=== PATIENT | female | born 1940 | race Caucasian/White ===

== ENCOUNTER → 2017-11-23 09:18 | Outpatient (CLI) | payer MEDICARE, OTHER, SELFPAY ==
--- NOTE | 2017-11-22 19:43 | CYSPIN_PTH ---
PATIENT: KENNY VELASCO LOC: [facility] U#:[id number] AGE/SX: 84/F ROOM: RE11/23/[address]: Dr. Omar Mcclure MD : 1940 BED: DIS: SPEC #: [id number] RECD: 11/23/17 10:39 STATUS: JUAN REQ #: [id number] SANDIP: 11/22/17 19:[address]: Omar Mcclure DEPT: CYTOLOGY RECD BY: Kimani Mosley ENTERED: 11/23/17 10:40 SP TYPE: CYSPIN FL OTHR DR: Dr. Julian Villa MD Tissues: Urine Procedures: Pap Stain (control) Special Stain Group II Cytospin Fluid HEADER OPERATION: Not noted PRE-OP DIAGNOSIS: Malignant neoplasm of bladder C67.9 TISSUE SUBMITTED: Urine for cytology DIAGNOSIS CYTOLOGY Urine for cytology (cytospin): Rare clusters of mildly atypical cells noted. Acute inflammation. SJ:cata 11/26/17 COMMENT Clinical correlation and appropriate follow up are necessary. Please make reference to previous specimen ([id number]), urine for cytology with diagnosis of ?rare atypical urothelial cells noted? 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 and ([id number]) bladder tumor, TUR with diagnosis of ?papillary transitional cell carcinoma.? CYTOLOGY STUDY Slides are reviewed. CYTOLOGY GROSS Received is 45 ml of clear gold fluid labeled with the patient's name and and designated per the requisition as urine. Submitted for cytology preparation. / 11/23/17 TC:5 CPT: 36519
[2017-11-23 09:24] LABS: Cytology, Body Fluid / CSF SEE PATHOLOGY REPORT
== END ==
PROVIDERS: Family Provider Family Medicine; PCP Family Medicine; Visit Provider Urology
DX: C67.9 Malignant neoplasm of bladder, unspecified (principal)
CPT/HCPCS: 88108; 88313

== ENCOUNTER → 2018-03-18 09:55 | Outpatient (CLI) | payer MEDICARE, OTHER, SELFPAY | PROVIDERS: Family Provider Family Medicine; PCP Family Medicine; Referring Provider Urology; Visit Provider Urology | DX: N39.0 Urinary tract infection, site not specified (principal) | CPT/HCPCS: 87077; 87086; 87088; 87186 ==

== ENCOUNTER → 2018-05-01 12:11 | Outpatient (CLI) | payer MEDICARE, OTHER, SELFPAY | PROVIDERS: Family Provider Family Medicine; PCP Family Medicine; Referring Provider Nurse Practitioner Adult Health; Visit Provider Nurse Practitioner Adult Health | DX: R31.9 Hematuria, unspecified (principal); R30.0 Dysuria | CPT/HCPCS: 87077; 87086; 87088; 87186 ==

== ENCOUNTER → 2018-11-25 16:28 | Outpatient (CLI) | payer MEDICARE, OTHER, SELFPAY | PROVIDERS: Family Provider Family Medicine; PCP Family Medicine; Referring Provider Urology; Visit Provider Urology | DX: R30.0 Dysuria (principal) | CPT/HCPCS: 87077; 87086; 87088; 87186 ==

== ENCOUNTER → 2018-12-05 06:49 | Outpatient (CLI) | payer MEDICARE, OTHER, SELFPAY ==
--- NOTE | 2018-12-05 06:51 | CT_ITS ---
STUDY: CT ABDOMEN AND PELVIS WITHOUT CONTRAST REASON FOR EXAM: Female, 78 years old. Chronic inflammation. UTI's. RADIATION DOSAGE (If Supplied By Facility): CTDIvol = ( 6.45 ) mGy, DLP = ( 285.08 ) mGycm TECHNIQUE: Transaxial images were obtained from the dome of the diaphragm to the symphysis pubis without oral contrast, and without intravenous contrast. Sagittal and coronal images were reconstructed. Individualized dose optimization techniques were used for this CT. COMPARISON: 06/20/10 FINDINGS: There are fibrotic and atelectatic changes in both lung bases. There is a lobulated 1.3 cm nodule in the posterior right lung base. Suggest reevaluation with CT of the chest. Normal shape and size of the liver. Stable liver cysts, largest measures 2.1 cm.. Normal gallbladder and extrahepatic biliary system. Normal spleen. Normal pancreas. Normal bilateral adrenal glands. No acute abnormality of the kidneys. Punctate nonobstructing right upper pole stone. 3 cm cyst of the upper left kidney, larger than on previous study. No hydronephrosis on either side. Evaluation of the GI tract is limited by absence of oral contrast. Cannot exclude stomach wall thickening. No dilated loops of bowel or evidence for obstruction. Cannot exclude segmental thickening of the abreu of the small or large bowel. Cannot exclude enteritis or colitis. Moderate diffuse fecal retention. Diverticulosis without definite diverticulitis. Appendix within normal limits. There is diffuse atherosclerotic calcification of the abdominal aorta with elongation and tortuosity, but without a demonstrated aneurysm. Normal inferior vena cava. Normal retroperitoneum. Normal urinary bladder. Stable appearance of the uterus with a 2.3 cm calcified fibroid. Normal abdominal wall. There are diffuse degenerative changes of the visualized lumbar spine. CT/Abdomen/Pelvis without Cont IMPRESSION: 1.3 cm nodule in the right lung base, CT of the chest recommended. Tiny nonobstructing right renal stone. No acute abnormalities in the abdomen or pelvis. Electronically Signed: Yehuda Arora MD at 17:19 EDT , Service support ,
== END ==
PROVIDERS: Family Provider Family Medicine; PCP Family Medicine; Referring Provider Urology; Visit Provider Urology
DX: N30.20 Other chronic cystitis without hematuria (principal); C67.9 Malignant neoplasm of bladder, unspecified
CPT/HCPCS: 74176

== ENCOUNTER → 2018-12-13 06:50 | Outpatient (CLI) | payer MEDICARE, OTHER, SELFPAY ==
--- NOTE | 2018-12-13 06:52 | CT_ITS ---
STUDY: CT CHEST WITHOUT CONTRAST REASON FOR EXAM: Female, 78 years old. Pulmonary nodule. RADIATION DOSAGE (If Supplied By Facility): CTDIvol = ( 8.02 ) mGy, DLP = ( 278.39 ) mGycm TECHNIQUE: Transaxial imaging was performed without the administration of intravenous contrast material. Multiplanar coronal and sagittal images were reformatted. Individualized dose optimization techniques were used for this CT. COMPARISON: CT abdomen and pelvis December 05, 2018 FINDINGS: There is bronchiectasis in the lower chest with patchy interstitial and groundglass increased opacities. There are 1.5 x 1.2 cm and 1.3 x 1.0 cm mass is in the right lower lobe, series 4 images 55/120 and 68/120. There is a right lower lung granuloma. There is no demonstrated pleural abnormality. There are aortic and mitral valvular calcifications. Normal mediastinum. Normal hilar regions. Normal unenhanced pulmonary arteries. There is atherosclerotic calcification of the aortic arch with tortuosity and elongation of the aortic arch and descending thoracic aorta. There are multi-level degenerative changes of the thoracic spine. Hypodensities with small cysts in the liver and left kidney. CT/Chest without Contrast IMPRESSION: Right lung masses suggesting primary or metastatic malignancy. Biopsy and/or PET scan recommended for further evaluation. Electronically Signed: Ramon Murphy MD at 8:45 EDT , Service support ,
== END ==
PROVIDERS: Family Provider Family Medicine; PCP Family Medicine; Referring Provider Urology; Visit Provider Urology
DX: R91.1 Solitary pulmonary nodule (principal)
CPT/HCPCS: 71250

== ENCOUNTER → 2018-12-17 14:57 | Outpatient (CLI) | payer MEDICARE, OTHER, SELFPAY ==
[2018-12-17 16:12] LABS: Erythrocyte Sedimentation Rate 5 mm/hr (0-30)
[2018-12-17 16:14] LABS: Rheumatoid Factor < 10.0 IU/mL (<15)
[2018-12-19 16:49] LABS: ANTINUCLEAR ANTIBODIES DIRECT Negative (Negative)
[2018-12-20 16:07] LABS: QNTFERON TB Mitogen Value > 10.00 IU/mL (.); QNTFERON TB Nil Value 0.03 IU/mL (.); QNTFERON TB1+ Ag Value 0.04 IU/mL (.); QNTFERON TB2+ Ag Value 0.02 IU/mL (.)
[2018-12-20 17:53] LABS: Perinuclear Ab (P-ANCA) <1:20 titer (Neg:<1:20); QNTIFERON TB Positive Criteria Negative (Negative)
== END ==
PROVIDERS: Family Provider Family Medicine; PCP Family Medicine; Referring Provider Internal Medicine Pulmonary Disease; Visit Provider Internal Medicine Pulmonary Disease
DX: R91.1 Solitary pulmonary nodule (principal)
CPT/HCPCS: 36415; 85652; 86038; 86256; 86431; 86480

== ENCOUNTER → 2018-12-19 15:00 | Outpatient (CLI) | payer MEDICARE, OTHER, SELFPAY ==
[2018-12-26 15:50] LABS: URINE HISTOPLASMA ANTIGEN <0.5
== END ==
PROVIDERS: Family Provider Family Medicine; PCP Family Medicine
DX: R91.1 Solitary pulmonary nodule (principal)
CPT/HCPCS: 87385

== ENCOUNTER → 2018-12-23 09:00 | Outpatient (CLI) | payer MEDICARE, OTHER, SELFPAY ==
--- NOTE | 2018-12-23 09:30 | PET_ITS ---
EXAMINATION: FDG PET CT INDICATIONS: A 78-year-old female with reported history of carcinoma of the urinary bladder presenting for restaging examination and evaluation of pulmonary nodularity. COMPARISON EXAMINATION: CT of the chest report dated 12/13/18. INDEX LESION SIZE SUV INTERPRETATION Right mid posterior lung field, right lower lobe 15.8 mm (frame 186) 1.3 Quantitative criteria for viable neoplasm are not fulfilled, sequential radiologic investigation recommended TECHNIQUE: Following the intravenous administration of 16.0 mCi of F-18 deoxyglucose via the left antecubital fossa, multiplanar image acquisitions of the neck, chest, abdomen and pelvis to level of mid thigh, obtained at one hour post radiopharmaceutical administration contemporaneously interpreted with the current CT of the neck, chest, abdomen and pelvis to level of mid thigh, dated 12/23/[address] of the chest report dated 12/13/18 reveal: SERUM GLUCOSE LEVEL: 143 mg/dl. HEIGHT: 61 inches. WEIGHT: 134lbs. FINDINGS: 1. Mild increased glucose metabolism is identified in the right mid posterior hemithorax pulmonary parenchyma, right lower lobe generating a calculated maximum standard uptake value of 1.3. The maximal axial diameter of the corresponding parenchymal density on review of CT of the chest dated 12/23/18 is 15.8 mm (AP). 2. Normal physiologic distribution of the radiopharmaceutical is apparent in the hepatic (3.7) and splenic parenchyma, both renal units, bladder and visualized intestinal tract. There is uniform distribution of the radiopharmaceutical concentration defined in the visualized cerebellar hemispheres and cerebral cortical structures.? Diffuse intestinal tract activity is noted throughout all four quadrants of the abdominal-pelvic retroperitoneum, mesentery consistent with normal physiologic distribution of the radiopharmaceutical. Prominent radiopharmaceutical concentration is defined in the ascending, descending thoracic, as well as abdominal aorta commensurate with activated leukocytes associated with atherosclerotic plaque formation. (William et al, Clinical Nuclear Medicine 29:93, 2004). Relatively symmetric cervical paravertebral muscle tension artifact is demonstrated. Pertinent CT findings are as follows. CHEST: Atherosclerotic calcification is defined in the thoracic aorta without evidence of dilatation, aneurysm formation. Bilateral axillary soft tissue densities with fatty hilus formation are non-glucose avid. An additional noncalcified parenchymal density noted in the right lower posterior lung field, right lower lobe is ametabolic. Linear densities and interstitial changes noted in the bilateral lower lung whalen demonstrate no evidence of increased glucose metabolism. ABDOMEN AND PELVIS: Atherosclerotic calcification is defined in the abdominal aorta without evidence of dilatation, aneurysm formation. Pelvic arterial calcification is observed. There is borderline fatty metamorphosis defined within the hepatic parenchyma. Colonic diverticulosis is demonstrated without evidence of diverticulitis. Right-left inguinal soft tissue densities with fatty hilus formation reveal no evidence of increased glucose metabolism. Dense calcification is defined in the lower pelvis, which appears contiguous to the lower portion of the uterus without evidence of facilitated FDG uptake. SKELETAL: Degenerative changes defined in the cervical, thoracic and lumbar spine demonstrate no evidence for glucose hypermetabolism. PET/PET/CT Tumor Base -Thigh Init IMPRESSION: 1. NEGATIVE EXAMINATION. There is no definitive quantitative scintigraphic evidence of recurrent-metastatic viable neoplasm. 2. Subtle increased FDG concentration noted in the right mid posterior lung field, right lower lobe does not fulfill quantitative criteria for viable neoplasm. (Roldan et al, Annals of Internal Medicine, 138:724, 2003). 3. Metabolic and/or anatomic stability may be ensured in the right hemithorax pulmonary parenchymal abnormality with repeat FDG PET study and/or CT of the thorax in three months. (Xiu, Journal of Nuclear Medicine 45:88, P2004. Arnaldo, Seminars in Thoracic and Cardiovascular Surgery 14:292, 2002). Electronic Signature Kimani Newberry D.O. Electronically Signed: Kimani Newberry DO at 23:09 EDT Tel , Service support ,
== END ==
PROVIDERS: Family Provider Family Medicine; PCP Family Medicine; Referring Provider Internal Medicine Pulmonary Disease; Visit Provider Internal Medicine Pulmonary Disease
DX: R91.1 Solitary pulmonary nodule (principal)
CPT/HCPCS: 78815; A9552

== ENCOUNTER → 2019-03-25 09:15 | Outpatient (CLI) | payer MEDICARE, OTHER, SELFPAY ==
--- NOTE | 2019-03-25 09:21 | CT_ITS ---
STUDY: CT CHEST WITHOUT CONTRAST REASON FOR EXAM: Female, 78 years old. Lung nodule follow up, no new problems or pain. Hx bladder cancer (surgery only) hypertension and diabetes. RADIATION DOSAGE (If Supplied By Facility): CTDIvol = ( 7.93 ) mGy, DLP = ( 263.69 ) mGycm TECHNIQUE: Transaxial imaging was performed without the administration of intravenous contrast material. Multiplanar coronal and sagittal images were reformatted. Individualized dose optimization techniques were used for this CT. COMPARISON: Comparison is made with prior examination dated December 13, 2018. FINDINGS: Stable small benign-appearing bilateral axillary lymph nodes. Mild degree of emphysematous changes. There is a 1.3 cm x 0.9 cm slightly lobulated nodule in the superior segment of the right lower lobe as seen on axial image #54 and 53. This has decreased slightly in size as compared to prior study. There is also evidence of a 1.3 cm x 0.9 cm well-defined nodule in the right lower lobe as seen on axial image #67. There is evidence of increased markings at the lower lobes slightly more prominent on the right side suggestive of a scarring. There has been essentially no change. There is no demonstrated pleural abnormality. There are calcifications of the coronary arteries. There are multiple small lymph nodes within the mediastinum, which are normal in size and morphology most compatible with reactive lymph hyperplasia. Normal hilar regions. Normal unenhanced pulmonary arteries. There is atherosclerotic calcification of the aortic arch with tortuosity and elongation of the aortic arch and descending thoracic aorta. There are multi-level degenerative changes of the thoracic spine. There is no demonstrated abnormality of the visualized upper abdomen. CT/Chest without Contrast IMPRESSION: Stable nodules in the right lower lobe. Stable increased markings at the lung bases suggestive of scarring. Electronically Signed: Sidney Cartwright, at 14:16 EST , Service support ,
== END ==
PROVIDERS: Family Provider Family Medicine; PCP Family Medicine; Referring Provider Internal Medicine Pulmonary Disease; Visit Provider Internal Medicine Pulmonary Disease
DX: R91.1 Solitary pulmonary nodule (principal)
CPT/HCPCS: 71250

== ENCOUNTER → 2019-09-23 08:21 | Outpatient (CLI) | payer MEDICARE, OTHER, SELFPAY ==
--- NOTE | 2019-09-23 08:23 | CT_ITS ---
STUDY: CT CHEST WITHOUT CONTRAST REASON FOR EXAM: Female, 78 years old. LUNG NODULE FOLLOW UP RADIATION DOSAGE (If Supplied By Facility): CTDIvol = ( 7.88 ) mGy, DLP = ( 259.98 ) mGycm TECHNIQUE: Transaxial imaging was performed without the administration of intravenous contrast material. Individualized dose optimization techniques were used for this CT. COMPARISON: 03/25/2019 FINDINGS: Lung windows show stable nonspecific pleural thickening in the apices. Stable appearance of a known 1.3 x 0.9 cm lobulated nodule in the right lower lobe on axial image 54. Stable appearance of a known 1.3 x 0.9 cm nodule in the right lower lobe on axial image 68. No new suspicious noncalcified mass or nodule. No organized infiltrate or groundglass opacifications. Stable interstitial scarring and atelectasis noted in the lung bases. Soft tissue windows show a normal-appearing thyroid gland. There are scattered subcentimeter axillary mediastinal lymph nodes. No pleural or pericardial effusions. Normal hilar regions. Normal unenhanced pulmonary arteries. Peripheral calcifications in the thoracic aorta without aneurysm. There are multi-level degenerative changes of the thoracic spine. Limited cuts through the upper abdomen show stable 3 cm left renal cyst CT/Chest without Contrast IMPRESSION: Stable well-defined lobulated nodules in the right lower lobe on axial images 54 and 68. No organized infiltrate or suspicious ground glass opacifications Stable subcentimeter axillary mediastinal adenopathy Electronically Signed: Matti Garcia MD at 11:15 EDT , Service support ,
== END ==
PROVIDERS: PCP Family Medicine; Referring Provider Internal Medicine Pulmonary Disease; Visit Provider Internal Medicine Pulmonary Disease
DX: R91.1 Solitary pulmonary nodule (principal)
CPT/HCPCS: 71250

== ENCOUNTER → 2020-06-04 15:00 | Outpatient (CLI) | payer MEDICARE, OTHER, SELFPAY ==
--- NOTE | 2020-06-04 15:03 | VDLE_ITS ---
Reason For Study: Pain, Swelling RLE RIGHT LEFT GSV is normal. CFV is compressible, spontaneous, phasic, CFV is compressible, spontaneous, phasic, competent, and demonstrates normal competent and demonstrates normal augmentation. augmentation. FV is compressible, spontaneous, phasic, competent and demonstrates normal augmentation. POP V is compressible, spontaneous, phasic, competent and demonstrates normal augmentation. T/P Trunk is compressible. PTV is compressible. RT PerV is compressible. Acute deep vein thrombosis is noted in the right soleus vein. Procedure This is a venous duplex using B-mode, color flow and spectral Doppler. Exam performed in department. VL/Venous Duplex US, Unilateral Interpretation Summary Acute deep vein thrombosis is noted in the right soleus vein. The remainder of the right lower extremity deep venous system is patent and compressible. Valvular competence ap pears intact within the proximal deep venous system on the right . The right great saphenous vein a ppears patent and compressible segmentally. Ordering Physician: Tricia Hunter Referring Physician: Julian Villa Performed By: Whitley Rich RVT
== END ==
PROVIDERS: PCP Family Medicine; Referring Provider Clinical Nurse Specialist; Visit Provider Clinical Nurse Specialist
DX: M79.89 Other specified soft tissue disorders (principal); M79.604 Pain in right leg
CPT/HCPCS: 93971

== ENCOUNTER → 2020-06-17 10:48 | Outpatient (CLI) | payer MEDICARE, OTHER, SELFPAY ==
--- NOTE | 2020-06-17 | CYSPIN_PTH ---
PATIENT: KENNY VELASCO LOC: [facility] U#:[id number] AGE/SX: 84/F ROOM: RE06/17/[address]: Dr. Omar Mcclure MD : 1940 BED: DIS: SPEC #: [id number] RECD: 06/17/20 11:24 STATUS: JUAN REYumiko #: [id number] SANDIP: 06/17/20 00:[address]: Omar Mcclure DEPT: CYTOLOGY RECD BY: Jason Theodore ENTERED: 06/17/20 11:25 SP TYPE: CYSPIN FL OTHR DR: Dr. Julian Villa MD Tissues: Urine Procedures: Pap Stain (control) Special Stain Group II Cytospin Fluid HEADER OPERATION: Not noted PRE-OP DIAGNOSIS: Malignant neoplasm of bladder TISSUE SUBMITTED: Urine for cytology DIAGNOSIS CYTOLOGY Urine for cytology (cytospin): Negative for malignant cells. Acute inflammation. See comment. AM:cata 06/18/2020 COMMENT The specimen primarily consists of squamous epithelial cells. Clinical correlation is suggested. CYTOLOGY STUDY Slides are reviewed. CYTOLOGY GROSS Received is 10 ml of yellow cloudy fluid labeled with the patient's name and and designated per the requisition as urine. Submitted for cytology preparation. / cata 06/17/2020 TC:5 CPT: 64581
[2020-06-17 11:06] LABS: Cytology, Body Fluid / CSF SEE PATHOLOGY REPORT
== END ==
PROVIDERS: PCP Family Medicine; Referring Provider Urology; Visit Provider Urology
DX: Z85.51 Personal history of malignant neoplasm of bladder (principal)
CPT/HCPCS: 88108; 88313

== ENCOUNTER → 2020-06-23 07:58 | Outpatient (CLI) | payer MEDICARE, OTHER, SELFPAY ==
--- NOTE | 2020-06-23 08:00 | CT_ITS ---
STUDY: CT ABDOMEN AND PELVIS WITH AND WITHOUT CONTRAST REASON FOR EXAM: Female, 79 years old. Gross hematuria. History of bladder cancer. RADIATION DOSAGE (If Supplied By Facility): CTDIvol = ( 17.85 ) mGy, DLP = ( 2028.58 ) mGycm TECHNIQUE: Transaxial images were obtained from the dome of the diaphragm to the symphysis pubis without oral contrast. IV 100mL Isovue-370 was administered. Sagittal and coronal images were reconstructed. Individualized dose optimization techniques were used for this CT. COMPARISON: Comparison is made with prior examination 12/05/2018. FINDINGS: Stable increased linear markings at the lung bases suggestive of scarring. The previously documented nodules at the right lung base are not seen at this time since the field of view did not include the lower lungs. The visualized portions of the heart are within normal limits. There is decreased attenuation of the liver consistent with steatosis. Stable small hepatic cysts. Normal gallbladder and extrahepatic biliary system. Normal spleen. Normal pancreas. Normal bilateral adrenal glands. Normal right kidney. Stable 3 cm cyst in the upper pole of the left kidney. Normal visualized stomach. Normal small intestine. Normal colon. The appendix is visualized and appears normal. There is scattered atherosclerotic calcification of the abdominal aorta, without a demonstrated aneurysm. Normal inferior vena cava. Normal retroperitoneum. Normal urinary bladder. Calcified fibroid uterus. There is a small umbilical hernia containing fat. There are diffuse degenerative changes of the visualized lumbar spine. CT/CT Abd/Pelvis W/WO Contrast IMPRESSION: Stable examination. Electronically Signed: Sidney Cartwright MD at 10:30 EDT , Service support ,
== END ==
PROVIDERS: PCP Family Medicine; Referring Provider Urology; Visit Provider Urology
DX: R31.0 Gross hematuria (principal)
CPT/HCPCS: 74178; Q9967

== ENCOUNTER → 2020-12-13 13:52 | Outpatient (CLI) | payer MEDICARE, OTHER, SELFPAY ==
--- NOTE | 2020-12-13 14:40 | CT_ITS ---
STUDY: CT Chest W/O Contrast Injection 12/13/2020 3:19 PM REASON FOR EXAM: Female, 80 years old. PULMONARY NODULE Individualized dose optimization techniques were used for this CT. TECHNIQUE: Transaxial imaging was performed withoutIV contrast material. COMPARISON: 09.23.19. FINDINGS: There are degenerative changes of the shoulders. There is no pneumothorax. There is no demonstrated pleural abnormality. 2.6 mm right upper lobe nodule. This is stable. 11 mm right lower lobe nodule. Series 2 image 68. 13 mm nodule in the superior segment of the right lower lobe. Series 2 image 54. 3.8 mm left upper lobe nodule. Series 2 image 47. 2.1 mm left upper lobe nodule. Series 2 image 26. Normal heart and pericardium. Normal mediastinum. Normal hilar regions. Normal pulmonary arteries. There is atherosclerotic calcification of the aortic arch with tortuosity and elongation of the aortic arch and descending thoracic aorta. There are multi-level degenerative changes of the thoracic spine. Stable hepatic hypodensities. Stable cyst of the left kidney. No follow-up required. CT/Chest without Contrast IMPRESSION: Multiple stable bilateral pulmonary nodules. Lung RADS 2 Electronically Signed: Ricky Johnson MD at 15:24 EDT , Service support ,
== END ==
PROVIDERS: PCP Family Medicine; Referring Provider Internal Medicine Pulmonary Disease; Visit Provider Internal Medicine Pulmonary Disease
DX: R91.1 Solitary pulmonary nodule (principal)
CPT/HCPCS: 71250

== ENCOUNTER 2021-04-05 16:59 | Outpatient (CLI) | payer MEDICARE, OTHER, SELFPAY | END 2021-04-05 23:59 | disposition short-term general hospital (02) | LOC: LABSPEC 17:00 | PROVIDERS: PCP Family Medicine; Visit Provider Urology | DX: R31.0 Gross hematuria (principal) | CPT/HCPCS: 87077; 87086; 87088; 87186 ==

== ENCOUNTER 2021-04-18 10:42 | Outpatient (CLI) | payer MEDICARE, OTHER, SELFPAY | END 2021-04-18 23:59 | disposition home or self-care (01) | LOC: LAB 10:43 | PROVIDERS: PCP Family Medicine; Visit Provider Urology | DX: N30.00 Acute cystitis without hematuria (principal) | CPT/HCPCS: 87077; 87086; 87088; 87186 ==

== ENCOUNTER → 2021-07-01 | Outpatient (CLI) | payer MEDICARE, OTHER, SELFPAY ==
--- NOTE | 2021-07-01 14:52 | CT_ITS ---
STUDY: CT ABDOMEN AND PELVIS WITH AND WITHOUT CONTRAST REASON FOR EXAM: Female, 80 years old. HX BLADDER CA RADIATION DOSAGE (If Supplied By Facility): CTDIvol = ( 12.77 ) mGy, DLP = ( 1437.50 ) mGycm TECHNIQUE: Transaxial images were obtained from the dome of the diaphragm to the symphysis pubis without oral contrast. IV 100mL Isovue-300 was administered. Sagittal and coronal images were reconstructed. Individualized dose optimization techniques were used for this CT. COMPARISON: None. FINDINGS: The visualized lung bases are unremarkable. The visualized portions of the heart are within normal limits. There are scattered focal areas of decreased density in the liver. Close to the portal vein there is an irregular marginated low-density lesion.. Normal gallbladder and extrahepatic biliary system. Normal spleen. Normal pancreas. Normal bilateral adrenal glands. Normal right kidney. There is a cystic lesion at the upper pole of the left kidney measuring 2.19 cm. left kidney. Normal visualized stomach. Normal small intestine. There are scattered diverticula in the colon. The appendix is visualized and appears normal. Normal abdominal aorta. Normal inferior vena cava. Normal retroperitoneum. Normal urinary bladder. Normal abdominal wall. Normal osseous structures. CT/CT Abd/Pelvis W/WO Contrast IMPRESSION: There is a lesion in the liver which may be a hepatic cyst although a solid mass is within the differential diagnosis. Electronically Signed: Chris Nath MD at 0:22 EDT ,
[2021-07-01 15:30] LABS: CREATININE FINGERSTICK 0.8 mg/dL (0.55-1.02); EGFR FINGERSTICK > 60.0000 mL/min (>60)
== END | disposition home or self-care (01) ==
LOC: CT 14:51
PROVIDERS: PCP Family Medicine; Referring Provider Urology; Visit Provider Urology
DX: Z85.51 Personal history of malignant neoplasm of bladder (principal)
CPT/HCPCS: 74178; Q9967

== ENCOUNTER 2021-09-08 16:55 | Outpatient (CLI) | payer MEDICARE, OTHER, SELFPAY | END 2021-09-08 23:59 | disposition home or self-care (01) | LOC: LABSPEC 16:57 | PROVIDERS: PCP Family Medicine; Referring Provider Urology; Visit Provider Urology | DX: N30.00 Acute cystitis without hematuria (principal) | CPT/HCPCS: 87077; 87086; 87088; 87186 ==

== ENCOUNTER → 2021-09-19 | Outpatient (CLI) | payer MEDICARE, OTHER, SELFPAY | END | disposition home or self-care (01) | PROVIDERS: PCP Family Medicine; Referring Provider Urology; Visit Provider Urology | DX: N30.00 Acute cystitis without hematuria (principal) | CPT/HCPCS: 87077; 87086; 87088; 87186 ==

== ENCOUNTER → 2021-09-23 | Outpatient (CLI) | payer MEDICARE, OTHER, SELFPAY ==
[2021-09-23] MEDS: 0.9% NaCl Peripheral Flush Adult/Peds IV (08:07)
[2021-09-23] MEDS: 0.9% NaCl IVPB Med Flush (250 mL) 15 ML IV (08:08)
[2021-09-23 08:19] VITALS: BP 125/74; PULSE 72; RESP 16; TEMP 36.6; O2SAT 98
== END | disposition home or self-care (01) ==
LOC: MEDOUTP 07:52
PROVIDERS: PCP Family Medicine; Referring Provider Urology; Visit Provider Urology
DX: N30.00 Acute cystitis without hematuria (principal); B96.20 Unspecified Escherichia coli [E. coli] as the cause of diseases classified elsewhere
CPT/HCPCS: 96365; J7050; A4216

== ENCOUNTER 2021-09-24 08:26 | Outpatient (CLI) | payer MEDICARE, OTHER, SELFPAY ==
[2021-09-24] MEDS: 0.9% Saline Lock 10 ML Syringe IV (08:40)
[2021-09-24 08:51] VITALS: BP 139/70; PULSE 67; RESP 100; TEMP 36.8; O2SAT 98
== END 2021-09-24 09:44 | disposition home or self-care (01) ==
LOC: MEDOUTP 08:27 → MS3 08:30
PROVIDERS: PCP Family Medicine; Referring Provider Urology; Visit Provider Urology
DX: N30.00 Acute cystitis without hematuria (principal); B96.20 Unspecified Escherichia coli [E. coli] as the cause of diseases classified elsewhere
CPT/HCPCS: 96365; J7050; A4216

== ENCOUNTER 2021-09-25 08:25 | Outpatient (CLI) | payer MEDICARE, OTHER, SELFPAY ==
[2021-09-25 08:58] VITALS: BP 134/68; PULSE 70; RESP 16; TEMP 36.8; O2SAT 99
[2021-09-25] MEDS: 0.9% Saline Lock 10 ML Syringe IV (09:08)
== END 2021-09-25 09:50 | disposition home or self-care (01) ==
LOC: MEDOUTP 08:28 → PCU 08:30
PROVIDERS: PCP Family Medicine; Visit Provider Urology
DX: N30.00 Acute cystitis without hematuria (principal); B96.20 Unspecified Escherichia coli [E. coli] as the cause of diseases classified elsewhere
CPT/HCPCS: 96365; J7050; A4216

== ENCOUNTER → 2021-09-26 | Outpatient (CLI) | payer MEDICARE, OTHER, SELFPAY ==
[2021-09-26 08:28] VITALS: BP 145/79; PULSE 77; RESP 16; TEMP 36.2; O2SAT 97; BMI 23.2
[2021-09-26] MEDS: 0.9% NaCl Peripheral Flush Adult/Peds IV (08:32)
[2021-09-26] MEDS: 0.9% NaCl IVPB Med Flush (250 mL) 15 ML IV (08:35)
[2021-09-26 09:17] VITALS: BP 127/68; PULSE 68; RESP 14; TEMP 36.8; O2SAT 97
== END | disposition home or self-care (01) ==
LOC: MEDOUTP 08:21
PROVIDERS: PCP Family Medicine; Referring Provider Urology; Visit Provider Urology
DX: N30.00 Acute cystitis without hematuria (principal); B96.20 Unspecified Escherichia coli [E. coli] as the cause of diseases classified elsewhere
CPT/HCPCS: 96365; J7050; A4216

== ENCOUNTER → 2021-09-27 | Outpatient (CLI) | payer MEDICARE, OTHER, SELFPAY ==
[2021-09-27] MEDS: 0.9% NaCl Peripheral Flush Adult/Peds IV (08:31)
[2021-09-27 08:36] VITALS: BP 145/75; PULSE 78; RESP 14; TEMP 36.4; O2SAT 98; BMI 23.8
[2021-09-27] MEDS: 0.9% NaCl IVPB Med Flush (250 mL) 15 ML IV (08:53)
[2021-09-27 09:34] VITALS: BP 131/68; PULSE 70; RESP 14; TEMP 36.7; O2SAT 95
== END | disposition home or self-care (01) ==
LOC: MEDOUTP 08:22
PROVIDERS: PCP Family Medicine; Referring Provider Urology; Visit Provider Urology
DX: N30.00 Acute cystitis without hematuria (principal); B96.20 Unspecified Escherichia coli [E. coli] as the cause of diseases classified elsewhere
CPT/HCPCS: 96365; J7050; A4216

== ENCOUNTER → 2021-09-28 | Outpatient (CLI) | payer MEDICARE, OTHER, SELFPAY ==
[2021-09-28] MEDS: 0.9% NaCl Peripheral Flush Adult/Peds IV (08:07)
[2021-09-28] MEDS: 0.9% NaCl IVPB Med Flush (250 mL) 15 ML IV (08:07)
[2021-09-28 08:12] VITALS: BP 135/78; PULSE 72; RESP 16; TEMP 36.4; O2SAT 98
== END | disposition home or self-care (01) ==
LOC: MEDOUTP 07:53
PROVIDERS: PCP Family Medicine; Referring Provider Urology; Visit Provider Urology
DX: N30.00 Acute cystitis without hematuria (principal); B96.20 Unspecified Escherichia coli [E. coli] as the cause of diseases classified elsewhere
CPT/HCPCS: 96365; J7050; A4216

== ENCOUNTER → 2021-09-29 | Outpatient (CLI) | payer MEDICARE, OTHER, SELFPAY ==
[2021-09-29] MEDS: 0.9% NaCl Peripheral Flush Adult/Peds IV (08:31)
[2021-09-29] MEDS: 0.9% NaCl IVPB Med Flush (250 mL) 15 ML IV (08:31)
[2021-09-29 08:37] VITALS: BP 133/71; PULSE 72; RESP 16; TEMP 36.8; O2SAT 95
[2021-09-29 09:25] VITALS: BP 128/70; PULSE 73; RESP 12; TEMP 36.8; O2SAT 95
== END | disposition home or self-care (01) ==
LOC: MEDOUTP 08:24
PROVIDERS: PCP Family Medicine; Referring Provider Urology; Visit Provider Urology
DX: N30.00 Acute cystitis without hematuria (principal); B96.20 Unspecified Escherichia coli [E. coli] as the cause of diseases classified elsewhere
CPT/HCPCS: 96365; J7050; A4216

== ENCOUNTER → 2021-12-14 | Outpatient (CLI) | payer MEDICARE, OTHER, SELFPAY ==
--- NOTE | 2021-12-14 12:50 | CT_ITS ---
INDICATION: NODULE EXAMINATION: CT CHEST WITHOUT CONTRAST - CT Chest W/O Contrast Injection TECHNIQUE: Helically acquired images were obtained of the chest. A radiation dose optimization technique was used for this scan. IV Contrast dosage and agent: None. COMPARISON: 12/13/2020 FINDINGS: LUNGS, PLEURA AND LARGE AIRWAYS: Series 4 image 18 medial aspect apical segment right upper lobe 0.28 cm micronodules stable. Series 4 image 29 lateral aspect anterior segment right upper lobe micronodule 0.27 cm stable. Series 4 image 61 right middle lobe micronodule 0.24 cm stable. Mild bibasilar fibrosis. Micronodule right lower lobe series 4 image 76 0.31 cm. The aforementioned nodules are stable. THYROID: No thyroid lesions. HEART AND PERICARDIUM: Heart size is normal. No pericardial effusion. CORONARY ARTERIES: Coronary artery calcification VESSELS: Thoracic aorta is not dilated. MEDIASTINUM AND ERNESTO: No mediastinal or hilar adenopathy. Esophagus is unremarkable. No hiatal hernia. UPPER ABDOMEN: Simple cyst lateral midpole left kidney 2.9 cm. BONES: No suspicious lytic or blastic abnormality. CT/Chest without Contrast IMPRESSION: Stable micronodules detailed above. Simple cyst lateral midpole left kidney. Lung Rads Category 2. Electronically Signed: Konrad Ibarra MD, BLAIR at 16:01 EDT ,
== END | disposition home or self-care (01) ==
LOC: CT 12:49
PROVIDERS: PCP Family Medicine; Referring Provider Internal Medicine Pulmonary Disease; Visit Provider Internal Medicine Pulmonary Disease
DX: R91.1 Solitary pulmonary nodule (principal)
CPT/HCPCS: 71250

== ENCOUNTER 2021-12-16 01:17 | Observation (INO) | payer MEDICARE, OTHER, SELFPAY ==
[2021-12-16] VITALS (11 sets, daily range): BP systolic 123–177; BP diastolic 63–80; PULSE 70–78; RESP 16–19; TEMP 36.4–36.8; O2SAT 95–100; BMI 25.5; BMI 25.0
--- NOTE | 2021-12-16 01:28 | EKG12_ITS ---
Test Reason : CP Blood Pressure : / mmHG Vent. Rate : 073 BPM Atrial Rate : 073 BPM P-R Int : 158 ms QRS Dur : 076 ms QT Int : 386 ms P-R-T Axes : 064 016 043 degrees QTc Int : 425 ms Normal sinus rhythm Normal ECG Confirmed by RAJAT LARA, JEN ([id number]), clinical editor KARRIE RIOS ([id number]) on 12/19/2021 10:11:25 AM Referred By: EDITH Confirmed By:ASCENCION EARL MD
--- NOTE | 2021-12-16 01:29 | EDS_ITS ---
HPI History of Present Illness Chief Complaint: Chest Pain Informant: patient Onset/Context/Timing Onset: Hours Context: Gradual Onset Timing: Intermittent Current Severity: Mild Maximum Severity: Moderate Narrative Narrative: Patient presents secondary to pressure over the mid chest. Pain is been intermittent over the past several hours. She has some pain that radiates to the jawline and around to the bilateral flank area. She denies shortness of breath. No recent change in activity tolerance. [facility] Medical History Diabetes mellitus, type II DVT (deep venous thrombosis) Fatty liver GERD (gastroesophageal reflux disease) Hepatic cyst History of bladder cancer HTN (hypertension) Hyperlipidemia Lung nodule Onychogryposis Renal cyst Schatzki's ring SVT (supraventricular tachycardia) Tubular adenoma of colon Uterovaginal prolapse, incomplete Home Medications Eliquis 5 mg BID 09/23/21 [History Last Taken Unknown] atorvastatin 20 mg tablet mg DAILY 09/23/21 [History Last Taken Unknown] cefepime 2 gram/50 mL in dextrose 5 % intravenous piggyback 2 g IV DAILY 09/23/21 [History Last Taken Unknown] famotidine 20 mg tablet mg BID 09/23/21 [History Last Taken Unknown] hydrochlorothiazide 25 mg tablet 25 mg PO DAILY 09/23/21 [History Last Taken Unknown] lisinopril 20 mg tablet 20 mg PO DAILY 09/23/21 [History Last Taken Unknown] nateglinide 60 mg tablet mg TID 09/23/21 [History Last Taken Unknown] sitagliptin 25 mg tablet (Januvia) mg DAILY 09/23/21 [History Last Taken Unknown] Allergy/AdvReac Type Severity Reaction Status Date / Time omeprazole [From Prilosec] AdvReac Mild PT UNSURE Verified 12/16/21 01:21 OF REACTION metformin AdvReac PT UNSURE Verified 12/16/21 01:21 OF REACTION Social History Smoking Status: Never smoker ROS ROS ED Constitutional Constitutional ED: Denies chills or fever(s) Eyes Eyes: Denies change in vision or discharge from eye(s) ENT ENT ED: Denies discharge from eye(s), rhinorrhea or sore throat Cardiovascular Cardiovascular: Reports chest pain; Denies palpitations Respiratory/Chest Respiratory/Chest: Denies cough or dyspnea Gastrointestinal Gastrointestinal: Denies abdominal pain, nausea or vomiting Genitourinary Genitourinary ED: Denies dysuria Musculoskeletal Musculoskeletal: Denies back pain or extremity pain Integumentary Denies Abrasions or rash Neurologic Neurologic: Denies headache(s) or weakness Allergic/Immunologic Allergic/Immunologic ED: Denies lip swelling or urticaria EXAM Physical Exam Const Vital Signs: 12/16/21 01:18 12/16/21 01:41 Temperature 98.3 F Temperature Source Oral Pulse Rate 78 Respiratory Rate 16 Blood Pressure 177/66 H Blood Pressure Mean 103 Pulse Ox 99 Oxygen Delivery Method Room Air Room Air Positive well nourished and well developed General Appearance ED: well developed HEENT Reports normocephalic and head/scalp atraumatic Eyes PERRL and EOMs intact bilaterally Neck supple Chest Wall inspection of chest normal and palpation of chest normal Resp normal respiratory effort and clear to auscultation bilaterally Cardio regular rate and regular rhythm GI normal to inspection, nondistended, normoactive bowel sounds Palpation: soft Extremity normal to inspection Neuro oriented x3 and no sensory deficits noted Sensorium / Orientation: alert Motor Exam: strength 5/5 throughout Psych mental status grossly normal Skin no rashes or lesions noted MDM MDM MDM Narrative Medical decision making narrative: Patient was given aspirin on arrival. Patient placed on bus driver/monitor. EKG, chest x-ray, lab work obtained. Lab Data Attestation: I reviewed the patient's lab results. Labs: Laboratory Results - last 24 hr 12/16/21 12/16/21 01:35 01:35 WBC 11.9 H RBC 4.51 Hgb 13.5 Hct 40.9 MCV 90.7 MCH 29.9 MCHC 33.0 RDW Std Deviation 42.6 RDW Coeff of Gamaliel 12.8 Plt Count 326 MPV 9.5 Immature Gran % (Auto) 0.300 Neut % (Auto) 71.8 H Lymph % (Auto) 16.7 L [place] % (Auto) 9.7 Eos % (Auto) 1.2 Baso % (Auto) 0.3 Absolute Neuts (auto) 8.6 H Absolute Lymphs (auto) 1.99 Nucleated RBC % 0 Sodium 139 Potassium 4.2 Chloride 104 Carbon Dioxide 29.0 Anion Gap 6 BUN 28 H Creatinine 1.02 Estim Creat Clear Calc 33.75 Est GFR (MDRD) Af Amer 67 Est GFR (MDRD) Non-Af 56 L BUN/Creatinine Ratio 27.5 H Glucose 192 H Calcium 9.6 Troponin I High Sens 7 Radiography Chest X-Ray - ED: 1 View, Read by ED Physician and Chronic Changes Diagnostic Testing: Clinical Impression(s) from Imaging Studies Chest X-Ray 12/16/21 01:45 IMPRESSION: No acute disease. Electronically Signed: Ashu Conde MD at 2:10 EDT , EKG Initial EKG: Attestation: I personally reviewed and interpreted this EKG as follows: Interpretation: Sinus Rhythm (Sinus at 73 with no acute ischemia.) Treatment and Re-Evaluation Narrative: On repeat evaluation patient resting comfortably. She states her pain is improved. Her blood pressure was initially elevated on arrival at 177/66. At this time her blood pressure is 127/67. She is had no significant arrhythmias on bus driver/monitor. EKG reveals no ischemia. Chest x-ray per my interpretation is unremarkable. Lab work is largely unremarkable at this time with a normal troponin of 7. Patient does however have a concerning story and a heart score of 5. I think it would be in her best interest to be observed for cardiac rule out. Patient and are in agreement with this. I will speak with the hospitalist. Discharge Plan Triage Chief Complaint: Chest Pain ED Provider: Rachael Garcia Dx/Rx/DC Orders Clinical Impression: Chest pain Prescriptions: No Action atorvastatin 20 mg Tablet DAILY lisinopril 20 mg Tablet 20 mg PO DAILY nateglinide [Starlix] 60 mg Tablet TID famotidine 20 mg Tablet BID hydrochlorothiazide 25 mg Tablet 25 mg PO DAILY Januvia 25 mg Tablet DAILY Eliquis 5 mg BID cefepime in dextrose 5 % 2 gram/50 mL Piggyback 2 g IV DAILY Primary Care Provider: Julian Villa Referrals: Julian Villa MD [Primary Care Provider] - Disposition Disposition: Acute Care [facility]
[2021-12-16 01:40] LABS: Absolute Lymphocyte Count 1.99 X10^3/uL (0.83-4.51); Absolute Neutrophil Count 8.6 X10^3/uL (2.0-7.7); Basophil# 0.04 X10^3/uL; Basophil% 0.3 % (0-1); Eosinophil# 0.14 X10^3/uL; Eosinophils% 1.2 % (0-5); Hematocrit 40.9 % (37-47); Hemoglobin 13.5 g/dL (12.0-15.0); Lymphocyte # 1.99 X10^3/ul (0.83-4.51); Lymphocyte % 16.7 % (19-41); Mean Corpuscular Hgb 29.9 pg (27.0-32.0); Mean Corpuscular Volume 90.7 fL (81-99); Mean Platelet Vol. 9.5 fl (6.2-12.0); Monocyte# 1.16 X10^3/uL; Monocyte% 9.7 % (0-10); NRBC Flagged by Analyzer 0 % (0-5); Neutrophil # 8.56 X10^3/uL (2.7-7.7); Neutrophil % 71.8 % (47-70); Platelet Count 326 K/mm3 (150-450); RBC Distribution Width CV 12.8 % (11.6-14.6); RBC Distribution Width SD 42.6 fl (35.1-43.9); Red Blood Count 4.51 M/mm3 (4.2-5.4); White Blood Count 11.9 K/mm3 (4.4-11.0)
[2021-12-16] MEDS: Aspirin 81 MG TAB.CHEW 324 MG PO (01:40)
--- NOTE | 2021-12-16 01:45 | RAD_ITS ---
EXAM: XR CHEST, 1 VIEW CLINICAL INDICATION: chest pain TECHNIQUE: Frontal view of the chest. This report was created using Qloud report generation technology. COMPARISON: None. FINDINGS: LUNGS AND PLEURAL SPACES: Scarring or discoid atelectasis at the right and left lobes. No pneumothorax. No effusion. HEART: Unremarkable. Cardiac silhouette not enlarged. MEDIASTINUM: Central airways and mediastinal contour are unremarkable. BONES/JOINTS: Unremarkable. SOFT TISSUES: Unremarkable. RAD/Chest 1 View (Portable) IMPRESSION: No acute disease. Electronically Signed: Ashu Conde MD at 2:10 EDT ,
[2021-12-16 02:01] LABS: Anion Gap 6 (5-15); BUN 28 mg/dL (7-18); BUN/Creat Ratio 27.5 RATIO (10-20); Calcium,Total 9.6 mg/dL (8.5-10.1); Chloride 104 mmol/L (98-107); Creatinine, Serum 1.02 mg/dL (0.55-1.02); EST Glomerular Filtration Rate 56 mL/min (>60); Est Glom Filt Rate - Afr Amer 67 mL/min (>60); Estimated Creatinine Clearance 33.75 ml/min; Glucose 192 mg/dL (74-106); Potassium 4.2 mmol/L (3.5-5.1); Sodium Level 139 mmol/L (136-145); Troponin-I HS (w/2H Reflex) 7 pg/mL (3.0-54.0)
--- NOTE | 2021-12-16 02:36 | PCM.HP.STD ---
HPI - General General Date of Admission: 12/16/21 Date of Service: 12/16/21 Chief Complaint: Intermittent Chest pain, radiation L jaw. HPI Narrative The patient is a 81 y/o F w/ PMHx: Hx SVT, Hx VTE, Diabetes mellitus type II, HTN, HLD, Hx Bladder CA, GERD who presents to the [facility] ED on 12/16/21 with history of persistent intermittent chest pain described as a pressure over the mid chest region ongoing for several hours prior to ED presentation with radiation to the right jawline as well as across her upper back and flank regions with no associated dyspnea, nausea, emesis or diaphoresis however given ongoing recurrent events prompted ED evaluation. She noted that the episode lasted at least 2 hours and would fluxuate in discomfort level with the worst 7-8/10 in severity. She notes currently her discomfort is completely resolved. Of note the day prior to onset of her symptoms she did get both her influenza and COVID booster vaccination. She reports this is the first time she has had a COVID vaccination since her COVID illness in -09/2021. She had been vaccinated prior but had not had COVID at that time and did not have marked reactions with her vaccinations. In the ED ED physician calculated her heart score which equivocated to 5. Work-up in the ED included CBC with T98.3, heart rate 78, BP 177/66 with improvement to 127/67, respiratory rate 16, 99% on room air, CBC with WC 11.9, hemoglobin 13.5, platelets 326 with left shift, BMP with BUN/creatinine 28/1.02, glucose 192, troponin 7, chest x-ray with no acute cardiopulmonary finding, EKG with sinus rhythm with no acute evidence of ischemia. In the ED patient ministered aspirin 324 mg p.o. x1. [facility] Medical History (Updated 12/16/21 @ 04:[address] Juli Anand MD) Diabetes mellitus, type II DVT (deep venous thrombosis) Fatty liver GERD (gastroesophageal reflux disease) History of bladder cancer HTN (hypertension) Hyperlipidemia Lung nodule Onychogryposis Schatzki's ring SVT (supraventricular tachycardia) Tubular adenoma of colon Uterovaginal prolapse, incomplete Home Medications Eliquis 5 mg BID 09/23/21 [History Last Taken Unknown] atorvastatin 20 mg tablet 40 mg PO QHS 09/23/21 [History Last Taken Unknown] famotidine 20 mg tablet 20 mg PO BID 09/23/21 [History Last Taken Unknown] hydrochlorothiazide 25 mg tablet 12.5 mg PO DAILY 09/23/21 [History Last Taken Unknown] lisinopril 20 mg tablet 20 mg PO DAILY 09/23/21 [History Last Taken Unknown] nateglinide 60 mg tablet 60 mg PO TID 09/23/21 [History Last Taken Unknown] sitagliptin 25 mg tablet (Januvia) 100 mg PO DAILY 09/23/21 [History Last Taken Unknown] magnesium 250 mg tablet 250 mg PO DAILY 12/16/21 [History Last Taken Unknown] Allergy/AdvReac Type Severity Reaction Status Date / Time omeprazole [From Prilosec] AdvReac Mild PT UNSURE Verified 12/16/21 01:21 OF REACTION metformin AdvReac PT UNSURE Verified 12/16/21 01:21 OF REACTION Family History (Updated 12/16/21 @ 04:[address] Juli Anand MD) Mother Hypertension Heart disease CHF (congestive heart failure) Rheumatoid arthritis Father PUD (peptic ulcer disease) s/p partial gastrectomy as a result of his PUD severity. Surgical History (Updated 12/16/21 @ 04:[address] Juli Anand MD) History of bilateral tubal ligation History of bladder surgery History of esophageal surgery History of tonsillectomy and adenoidectomy Social History (Updated 12/16/21 @ 02:[address] Juli Anand MD) household members: spouse Smoking Status: Never smoker alcohol intake: never substance use type: does not use ROS ROS Narrative Admission Review of Systems: CONSTITUTIONAL: No weight loss, fever, chills, + weakness or fatigue. HEENT: Eyes: No visual loss, blurred vision, double vision or yellow sclerae. Ears, Nose, Throat: No hearing loss, sneezing, congestion, runny nose or sore throat. SKIN: No rash or itching, lesions, wounds. CARDIOVASCULAR: + chest pain, chest pressure or chest discomfort, No palpitations, edema, orthopnea, syncopal events. RESPIRATORY: No shortness of breath, cough or sputum, wheezing, hemoptysis. GASTROINTESTINAL: No anorexia, nausea, vomiting or diarrhea, abdominal pain, melena, BRBPR. GENITOURINARY: No dysuria, frequency, urgency or retention. NEUROLOGICAL: No headache, dizziness, syncope, paralysis, ataxia, numbness or tingling in the extremities, focal weakness, change in bowel or bladder control, seizure. MUSCULOSKELETAL: + muscle, back pain, joint pain or stiffness. HEMATOLOGIC: + anemia, bleeding or bruising. LYMPHATICS: No enlarged nodes. No history of splenectomy. PSYCHIATRIC: No history of depression or anxiety. ENDOCRINOLOGIC: No reports of sweating, cold or heat intolerance. No polyuria or polydipsia. ALLERGIES: No history of asthma, hives, eczema or rhinitis. Vital Signs Vital Signs Vital Signs: 12/16/21 01:18 12/16/21 01:41 Temperature 98.3 F Temperature Source Oral Pulse Rate 78 Respiratory Rate 16 Blood Pressure 177/66 H Blood Pressure Mean 103 Pulse Ox 99 Oxygen Delivery Method Room Air Room Air Weight Weight: 135 lb 5.821 oz Body Mass Index (BMI) 25.5 Physical Exam Narrative Physical Examination: General: Awake, alert, oriented x 3 and cooperative, seated upright in the ED bed in no apparent distress, notes chest pain resolved. Skin: Normal color, normal turgor, no icterus, no cyanosis. HEENT: AT/NC, EOMI, PERRLA, MMM, no carotid bruits or JVD noted. Lungs: CTA bilaterally, moderate effort, mild decrease BL bases, no rales, ronchi or wheezing. Heart: Regular rate and rhythm; no gallop, rub audible. Abdomen: Soft, NTTP, ND, distant normal BS, no HSM. Extremities: No cyanosis, clubbing, or edema. Neurological: Patient awake, alert, oriented as noted, cognitive function intact; pupils equally reactive to light and accommodation, cranial nerves II-XII grossly normal, moving all 4 extremities, no focal deficits, strength mildly globally decreased secondary to acute presentation. Psychiatric: Affect appears fatigued otherwise normal, no acute evidence of depressive or anxiety feelings. Results Lab / Micro Data Result Diagrams: 12/16/21 01:35 12/16/21 01:35 Labs: Laboratory Results - last 24 hr 12/16/21 01:35: WBC 11.9 H, RBC 4.51, Hgb 13.5, Hct 40.9, MCV 90.7, MCH 29.9, MCHC 33.0, RDW Std Deviation 42.6, RDW Coeff of Gamaliel 12.8, Plt Count 326, MPV 9.5, Immature Gran % (Auto) 0.300, Neut % (Auto) 71.8 H, Lymph % (Auto) 16.7 L, [place] % (Auto) 9.7, Eos % (Auto) 1.2, Baso % (Auto) 0.3, Absolute Neuts (auto) 8.6 H, Absolute Lymphs (auto) 1.99, Nucleated RBC % 0 12/16/21 01:35: Sodium 139, Potassium 4.2, Chloride 104, Carbon Dioxide 29.0, Anion Gap 6, BUN 28 H, Creatinine 1.02, Estim Creat Clear Calc 33.75, Est GFR (MDRD) Af Amer 67, Est GFR (MDRD) Non-Af 56 L, BUN/Creatinine Ratio 27.5 H, Glucose 192 H, Calcium 9.6, Troponin I High Sens 7 Radiology Impression Chest X-Ray 12/16/21 01:45 IMPRESSION: No acute disease. Electronically Signed: Ashu Conde MD at 2:10 EDT , ADDENDUM: 12/16/21 [id number] IMPRESSION: undefined Assessment & Plan Assessment/Plan (1) Chest pain: PLAN: Plan The patient is a 81 y/o F w/ PMHx: Hx SVT, Hx VTE, Diabetes mellitus type II, HTN, HLD, Hx Bladder CA, GERD who presents to the [facility] ED on 12/16/21 with history of persistent intermittent chest pain described as a pressure over the mid chest region ongoing for several hours prior to ED presentation with radiation to the right jawline as well as across her upper back and flank regions with no associated dyspnea, nausea, emesis or diaphoresis however given ongoing recurrent events prompted ED evaluation. #1. Chest Pain: EKG in ED with sinus rhythm with no acute evidence of ischemia, CXR w/ no acute cardiopulmonary findings, initial trop 7. Given elevated heart score to be cautious will admit to PCU, place on a monitored bed to assure no acute myocardial infarction with serial cardiac enzymes and EKGs. If repeat serial cardiac enzymes and EKGs remain unremarkable will pursue a.m. cardiac stress testing. FLP in AM. Magnesium level requested. ASA, NG, morphine. #2. Diabetes mellitus type II: Hold oral home regimen, n.p.o. status given planned a.m. cardiac stress testing, accu checks w/ ISS. #3. Hypertension: Continue home regimen including lisinopril, hydrochlorothiazide, PRN hydralazine. #4. Hyperlipidemia: Continue home statin regimen. AM FLP. #5. History of VTE: We will continue patient home Eliquis regimen. #6. GERD: We will continue patient home famotidine regimen. #7. Hx Bladder CA: s/p surgical resection, considered in remission. #8. DVT prophylaxis: SCDs, continue patient home Eliquis regimen. #9. CODE status: Patient ORION is her and son and living will is currently in place. Discussed CODE status at length including difference between FULL code, DNR-CCA and DNR-CC status. Following discussions about the differences in these status, requested DNR-CCA, no intubation status. Advanced Care Planning Face to Face Time: 16 minutes. Charges/Coding Visit Charges OBSV E&M: 73892 Initial observation care L3 Procedures Hospitalists Procedures: 19165 Advncd Care Plan 30 Min
[2021-12-16 03:02] LABS: Magnesium 1.8 mg/dL (1.6-2.6)
--- NOTE | 2021-12-16 03:34 | EKG12_ITS ---
Test Reason : CP ADMIT Blood Pressure : / mmHG Vent. Rate : 063 BPM Atrial Rate : 063 BPM P-R Int : 166 ms QRS Dur : 078 ms QT Int : 406 ms P-R-T Axes : 066 019 043 degrees QTc Int : 415 ms Normal sinus rhythm Normal ECG Confirmed by CHEL LARA, PNA ([id number]), scientific publications editor KARRIE RIOS ([id number]) on 12/20/2021 11:04:57 AM Referred By: Confirmed By:PAN MILLIGAN MD
[2021-12-16 03:40] LABS: Reflex Troponin-HS? (from REC) Y
[2021-12-16] MEDS: 0.9% Normal Saline 1,000 ML 100 ML IV (03:56)
[2021-12-16 04:37] LABS: Absolute Lymphocyte Count 1.72 X10^3/uL (0.83-4.51); Absolute Neutrophil Count 7.5 X10^3/uL (2.0-7.7); Basophil# 0.03 X10^3/uL; Basophil% 0.3 % (0-1); Hematocrit 40.1 % (37-47); Hemoglobin 13.4 g/dL (12.0-15.0); Lymphocyte # 1.72 X10^3/ul (0.83-4.51); Lymphocyte % 17.1 % (19-41); Mean Corp Hgb Conc 33.4 g/dL (32-36); Mean Corpuscular Hgb 30.4 pg (27.0-32.0); Mean Corpuscular Volume 90.9 fL (81-99); Mean Platelet Vol. 9.8 fl (6.2-12.0); Monocyte# 0.69 X10^3/uL; Monocyte% 6.8 % (0-10); NRBC Flagged by Analyzer 0 % (0-5); Neutrophil # 7.52 X10^3/uL (2.7-7.7); Neutrophil % 74.6 % (47-70); Platelet Count 314 K/mm3 (150-450); RBC Distribution Width CV 12.9 % (11.6-14.6); RBC Distribution Width SD 42.7 fl (35.1-43.9); Red Blood Count 4.41 M/mm3 (4.2-5.4); White Blood Count 10.1 K/mm3 (4.4-11.0)
[2021-12-16 05:05] LABS: Troponin-I HS 6 pg/mL (3.0-54.0)
[2021-12-16 05:10] LABS: ALB/GLOB Ratio 0.9 RATIO (0.9-2.4); AST(SGOT) 19 U/L (15-37); Alanine Aminotransfer ALT/SGPT 28 U/L (13-56); Albumin, Serum 3.3 g/dL (3.2-5.0); Alkaline Phosphatase 63 U/L (45-117); Anion Gap 7 (5-15); BUN 27 mg/dL (7-18); Calcium,Total 9.2 mg/dL (8.5-10.1); Chloride 105 mmol/L (98-107); Cholesterol 143 mg/dL (200); Creatinine, Serum 1.04 mg/dL (0.55-1.02); EST Glomerular Filtration Rate 54 mL/min (>60); Est Glom Filt Rate - Afr Amer 66 mL/min (>60); Globulin 3.8 g/dL (2.2-4.2); Glucose 183 mg/dL (74-106); High Density Lipoprotein 50 mg/dL; Protein, Total 7.1 g/dL (6.4-8.2); Sodium Level 140 mmol/L (136-145); Triglycerides 164 mg/dL; Very Low Density Lipoprotein 33 mg/dL (5-40)
[2021-12-16] MEDS: Aspirin E.C. 81 MG Tablet PO (06:25)
[2021-12-16 06:45] LABS: Bedside Glucose 167 mg/dL (74-106)
[2021-12-16] MEDS: 0.9% Saline Lock 10 ML Syringe IV (08:01)
[2021-12-16 08:54] LABS: Troponin-I HS 5 pg/mL (3.0-54.0)
[2021-12-16] MEDS: Famotidine 20 MG Tablet PO (09:18)
[2021-12-16] MEDS: Lisinopril 20 MG Tablet PO (09:18)
[2021-12-16] MEDS: hydroCHLOROthiazide 25 MG Tablet PO (09:18)
[2021-12-16 11:40] LABS: Bedside Glucose 160 mg/dL (74-106)
--- NOTE | 2021-12-16 12:56 | STRESSREP_ITS ---
Stress Test Report Date: 12/16/2021 Procedure: Exercise tolerance test/imaging study Indications: [Chest pain] Consent: Per the patient Procedure: The patient exercised on a Richard protocol for 4 minutes achieving a peak heart rate of 153 bpm (108% predicted maximal heart rate) with a peak blood pressure 130/86 mmHg and a peak MET capacity of 7 METs. The baseline ECG demonstrated normal sinus rhythm. The peak exercise ECG demonstrated sinus tachycardia, no significant ischemic ST-T changes. EKG during recovery revealed no significant ischemic changes [There were no cardiac dysrhythmias pretest, during exercise, or recovery]. The functional capacity was considered normal for age. There was [no complaint of chest discomfort during exercise or recovery]. The examination was discontinued secondary to leg discomfort. Impression: 1. Technically adequate (percent predicted maximal heart rate greater than 85%) exercise tolerance test 2. Stress test is negative for exercise-induced EKG changes of ischemia 3. The test test is negative for exercise-induced chest pain 4. Functional capacity is normal for age 5. Nuclear images pending Myocardial perfusion imaging study: Technique: The patient was injected with 11.1 mCi of technetium 99m Cardiolite and subsequently rest SPECT Cardiolite nuclear imaging was obtained in the horizontal long, vertical long, and short axis views. The patient exercised on a Richard protocol. Please see above for details. The patient was injected with 33.2 mCi of technetium 99m Cardiolite and subsequently stress SPECT Cardiolite nuclear imaging was obtained in the horizontal long, vertical long, and short axis views. A gated Cardiolite study at peak stress was obtained. Interpretation: Rest and stress SPECT Cardiolite nuclear imaging status post realignment, normalization, and attenuation correction, demonstrates overall normal myocardial radioisotope uptake. The gated Cardiolite study demonstrates no significant regional wall motion abnormalities. The reported LVEF is greater than 70%. Impression: 1. There is no evidence of significant ischemia or infarction. 2. The gated Cardiolite study reports an LVEF of greater than 70%. This note was generated with Ocelusation software. It may contain incorrect words, spelling, and punctuation that were not noted in checking the note before signing.
--- NOTE | 2021-12-16 13:00 | DCINST_ITS ---
Discharge Instructions Diet Discharge Diet: 1800 Calorie Control Diet Activity Discharge Activity: Return to Normal Activity Weight Bearing Status: Full weight bearing Follow Up Care Test Results: Test results from this visit will be discussed in further detail at your follow- up appointment, if applicable. Discharge Plan Admission Admit Date/Time: 12/16/21 02:45 Primary Reason for Your Visit: chest pain Attending Provider: Konrad Lopez Primary Care Provider: Julian Villa Consulting Providers: Juli Anand Discharge Orders/Prescriptions Prescriptions: Continued atorvastatin 20 mg Tablet 40 mg PO QHS lisinopril 20 mg Tablet 20 mg PO DAILY nateglinide 60 mg Tablet 60 mg PO TID famotidine 20 mg Tablet 20 mg PO BID hydrochlorothiazide 25 mg Tablet 12.5 mg PO DAILY Januvia 25 mg Tablet 100 mg PO DAILY Eliquis 5 mg BID magnesium 250 mg Tablet 250 mg PO DAILY Referrals / Follow Up: Julian Villa MD [Primary Care Provider] - Within 2 Weeks Disposition Disposition (needs filled in before D/C Order can be placed): Home, Self Care
--- NOTE | 2021-12-16 13:04 | PCM.DC.SUM ---
Providers Date of Admission: 12/16/21 Date of Discharge: 12/16/21 Primary Care Physician: Dr. Julian Villa MD Reason For Visit: CHEST PAIN Diagnosis Discharge Diagnosis (1) Chest pain: Status: Acute Code(s): R07.9 - Chest pain, unspecified Plan 1. Musculoskeletal chest pain #2 type 2 diabetes #3 essential hypertension Medications at Discharge Home Medications Eliquis 5 mg BID 09/23/21 atorvastatin 20 mg tablet 40 mg PO QHS 09/23/21 famotidine 20 mg tablet 20 mg PO BID 09/23/21 hydrochlorothiazide 25 mg tablet 12.5 mg PO DAILY 09/23/21 lisinopril 20 mg tablet 20 mg PO DAILY 09/23/21 nateglinide 60 mg tablet 60 mg PO TID 09/23/21 sitagliptin 25 mg tablet (Januvia) 100 mg PO DAILY 09/23/21 magnesium 250 mg tablet 250 mg PO DAILY 12/16/21 Hospital Course Operations None Procedures Nuclear stress test Summary of Care Provided Minutes Spent on Discharge: 50 Hospital Course: This 81-year-old white female was seen in the emergency room at [facility] with complaints of intermittent chest pain over several hours. The chest pain was located in the precordial mid chest area, she complained of some discomfort radiating into her jaw and around to the bilateral flank area. Work-up in the emergency room included an EKG which showed normal sinus rhythm without ischemic changes, chest x-ray showed no acute abnormality, and the patient's cardiac enzymes were unremarkable. Patient was placed into observation status on PCU, subsequent cardiac enzymes remain normal, patient underwent a nuclear stress test on 12/16/2021 which was negative for any reversible ischemia. On 12/16/2021, patient was seen and examined: On examination she appeared in good health and spirits, she does not appear to be in any distress. Vital signs as documented. Skin warm and dry and without overt rashes. Neck without JVD, thyroid appears normal, trachea is midline, neck is supple. Lungs clear, normal air movement was noted. Heart exam notable for regular rhythm, normal sounds and absence of murmurs, rubs or gallops. Abdomen unremarkable and without evidence of organomegaly, masses, or abdominal aortic enlargement, bowel sounds are present in all 4 quadrants, no abdominal tenderness was noted. Extremities nonedematous, no cyanosis was noted, no clubbing was noted. Neuro: Cranial nerves II through XII are grossly intact, no focal motor deficits were noted, sensation to light touch and pinprick is intact, motor exam 5/5 throughout. Psych: Patient is alert and oriented x3, she does not appear anxious or depressed, she does not appear agitated. Patient appears stable for discharge home on 12/16/2021. Weight / BMI Weight Weight: 60 kg Body Mass Index (BMI) 25.0 ABG / Lab / Microbiology Data Result Diagrams: 12/16/21 03:54 12/16/21 03:54 Laboratory: Laboratory Results - last 24 hr 12/16/21 01:35: WBC 11.9 H, RBC 4.51, Hgb 13.5, Hct 40.9, MCV 90.7, MCH 29.9, MCHC 33.0, RDW Std Deviation 42.6, RDW Coeff of Gamaliel 12.8, Plt Count 326, MPV 9.5, Immature Gran % (Auto) 0.300, Neut % (Auto) 71.8 H, Lymph % (Auto) 16.7 L, [place] % (Auto) 9.7, Eos % (Auto) 1.2, Baso % (Auto) 0.3, Absolute Neuts (auto) 8.6 H, Absolute Lymphs (auto) 1.99, Nucleated RBC % 0 12/16/21 01:35: Sodium 139, Potassium 4.2, Chloride 104, Carbon Dioxide 29.0, Anion Gap 6, BUN 28 H, Creatinine 1.02, Estim Creat Clear Calc 33.75, Est GFR (MDRD) Af Amer 67, Est GFR (MDRD) Non-Af 56 L, BUN/Creatinine Ratio 27.5 H, Glucose 192 H, Calcium 9.6, Troponin I High Sens 7 12/16/21 01:35: Magnesium 1.8 12/16/21 03:54: WBC 10.1, RBC 4.41, Hgb 13.4, Hct 40.1, MCV 90.9, MCH 30.4, MCHC 33.4, RDW Std Deviation 42.7, RDW Coeff of Gamaliel 12.9, Plt Count 314, MPV 9.8, Immature Gran % (Auto) 0.200, Neut % (Auto) 74.6 H, Lymph % (Auto) 17.1 L, [place] % (Auto) 6.8, Eos % (Auto) 1.0, Baso % (Auto) 0.3, Absolute Neuts (auto) 7.5, Absolute Lymphs (auto) 1.72, Nucleated RBC % 0 12/16/21 03:54: Sodium 140, Potassium 4.0, Chloride 105, Carbon Dioxide 28.0, Anion Gap 7, BUN 27 H, Creatinine 1.04 H, Estim Creat Clear Calc 33.10, Est GFR (MDRD) Af Amer 66, Est GFR (MDRD) Non-Af 54 L, BUN/Creatinine Ratio 26.0 H, Glucose 183 H, Calcium 9.2, Total Bilirubin 0.30, AST 19, ALT 28, Alkaline Phosphatase 63, Total Protein 7.1, Albumin 3.3, Globulin 3.8, Albumin/Globulin Ratio 0.9, Triglycerides 164, Cholesterol 143, LDL Cholesterol 60, VLDL Cholesterol 33, HDL Cholesterol 50 12/16/21 03:54: Troponin I High Sens 6 12/16/21 06:23: POC Glucose 167 H 12/16/21 08:18: Troponin I High Sens 5 12/16/21 11:21: POC Glucose 160 H Radiography Diagnostic Testing: Radiology Impression Chest X-Ray 12/16/21 01:45 IMPRESSION: No acute disease. Electronically Signed: Ashu Conde MD at 2:10 EDT , ADDENDUM: 12/16/21 0226 IMPRESSION: undefined D/C Instructions Discharge Diet: 1800 Calorie Control Diet Weight Bearing Status: Full weight bearing Meaningful Use Info Meaningful Use Diagnoses (Choose all that apply): None applicable Discharge Plan Admission Admit Date/Time: 12/16/21 02:45 Primary Reason for Your Visit: chest pain Attending Provider: Konrad Lopez Primary Care Provider: Julian Villa Consulting Providers: Juil Anand Discharge Orders/Prescriptions Prescriptions: Continued atorvastatin 20 mg Tablet 40 mg PO QHS lisinopril 20 mg Tablet 20 mg PO DAILY nateglinide 60 mg Tablet 60 mg PO TID famotidine 20 mg Tablet 20 mg PO BID hydrochlorothiazide 25 mg Tablet 12.5 mg PO DAILY Januvia 25 mg Tablet 100 mg PO DAILY Eliquis 5 mg BID magnesium 250 mg Tablet 250 mg PO DAILY Referrals / Follow Up: Julian Villa MD [Primary Care Provider] - Within 2 Weeks Disposition Disposition (needs filled in before D/C Order can be placed): Home, Self Care Charges/Coding Visit Charges OBSV E&M: 30700 Observ/hosp same date L2
--- NOTE | 2021-12-16 13:27 | CASEMGMT ---
This RN CM to room to discuss d/c plan and pt states no concerns with going home at time of discharge. Pt voices no further questions/concerns/needs. SStaten RN CM
== END 2021-12-16 13:04 | disposition home or self-care (01) ==
LOC: ED 02:36 → PCU 03:00
PROVIDERS: Admitting Provider Family Medicine; Emergency Provider Emergency Medicine; PCP Family Medicine; Visit Provider Internal Medicine
DX: R07.89 Other chest pain (principal); E11.9 Type 2 diabetes mellitus without complications; I10 Essential (primary) hypertension; E78.5 Hyperlipidemia, unspecified; Z79.01 Long term (current) use of anticoagulants; K21.9 Gastro-esophageal reflux disease without esophagitis; Z86.718 Personal history of other venous thrombosis and embolism; Z79.899 Other long term (current) drug therapy
CPT/HCPCS: 36415; 71045; 78452; 80048; 80053; 80061; 82962; 83735; 84484; 85025; 93005; 93017; 96360; 96361; 99218; 99285; A9500; J7030; A4216; G0378

== ENCOUNTER → 2022-04-10 | Outpatient (CLI) | payer MEDICARE, SELFPAY | END | disposition home or self-care (01) | LOC: LAB 13:41 | PROVIDERS: PCP Family Medicine; Referring Provider Urology; Visit Provider Urology | DX: N30.00 Acute cystitis without hematuria (principal) | CPT/HCPCS: 87077; 87086; 87088; 87186 ==

== ENCOUNTER → 2022-04-26 | Outpatient (CLI) | payer MEDICARE, SELFPAY ==
--- NOTE | 2022-04-26 11:10 | RAD_ITS ---
STUDY: X-RAY - ABDOMEN/PELVIS REASON FOR EXAM: Female, 81 years old. Flank pain TECHNIQUE: Two AP supine views of the abdomen and pelvis. COMPARISON: None. FINDINGS: Normal visualized lung bases. There is an unremarkable bowel gas pattern. There is no demonstrated free abdominal air. The visualized liver, spleen and kidneys are grossly normal in size and morphology. No calcifications overlying either renal shadow or along expected course of either ureter. I suspect a lucent centered calcification within the left pelvis is likely phlebolith. However, subtle calcification could be of secured by overlying bowel gas and stool Popcorn calcification within the mid pelvis is likely a fibroid. Normal soft tissue structures. There are diffuse degenerative changes of the visualized lumbar spine. RAD/Abdomen Single View IMPRESSION: No suspicious findings Electronically Signed: Matti Garcia MD at 11:49 EST ,
== END | disposition home or self-care (01) ==
LOC: LAB 10:49
PROVIDERS: PCP Family Medicine; Referring Provider Urology; Visit Provider Urology
DX: N30.00 Acute cystitis without hematuria (principal)
CPT/HCPCS: 74018; 87077; 87086; 87088; 87186

== ENCOUNTER → 2022-05-15 | Outpatient (CLI) | payer MEDICARE, SELFPAY ==
[2022-05-15 08:36] VITALS: BP 147/63; PULSE 67; RESP 16; TEMP 36.4; O2SAT 95; BMI 24.0
[2022-05-15] MEDS: 0.9% NaCl Peripheral Flush Adult/Peds IV (08:47)
[2022-05-15] MEDS: 0.9% NaCl IVPB Med Flush (250 mL) 15 ML IV (08:47)
[2022-05-15 09:59] VITALS: BP 139/65; PULSE 72
== END | disposition home or self-care (01) ==
LOC: MEDOUTP 08:24
PROVIDERS: PCP Family Medicine; Referring Provider Urology; Visit Provider Urology
DX: N30.00 Acute cystitis without hematuria (principal)
CPT/HCPCS: 96365; J7050; A4216

== ENCOUNTER → 2022-05-16 | Outpatient (CLI) | payer MEDICARE, SELFPAY ==
[2022-05-16 08:38] VITALS: BP 114/58; PULSE 80; RESP 16; TEMP 36.7; O2SAT 100
[2022-05-16] MEDS: 0.9% NaCl Peripheral Flush Adult/Peds IV (08:44)
[2022-05-16] MEDS: 0.9% NaCl IVPB Med Flush (250 mL) 15 ML IV (08:48)
[2022-05-16 09:53] VITALS: BP 102/53; PULSE 62; RESP 16
== END | disposition home or self-care (01) ==
LOC: MEDOUTP 08:31
PROVIDERS: PCP Family Medicine; Referring Provider Urology; Visit Provider Urology
DX: N30.00 Acute cystitis without hematuria (principal); B96.20 Unspecified Escherichia coli [E. coli] as the cause of diseases classified elsewhere
CPT/HCPCS: 96365; J7050; A4216

== ENCOUNTER → 2022-05-17 | Outpatient (CLI) | payer MEDICARE, SELFPAY ==
[2022-05-17] MEDS: 0.9% NaCl IVPB Med Flush (250 mL) 15 ML IV (08:39)
[2022-05-17] MEDS: 0.9% NaCl Peripheral Flush Adult/Peds IV (08:39)
[2022-05-17 08:42] VITALS: BP 110/63; PULSE 74; RESP 16; TEMP 35.6; O2SAT 98; BMI 24.0
[2022-05-17 09:44] VITALS: BP 105/55; PULSE 70; RESP 16; TEMP 36.2; O2SAT 97
== END | disposition home or self-care (01) ==
LOC: MEDOUTP 08:24
PROVIDERS: PCP Family Medicine; Referring Provider Urology; Visit Provider Urology
DX: N30.00 Acute cystitis without hematuria (principal)
CPT/HCPCS: 96365; J7050; A4216

== ENCOUNTER → 2022-05-18 | Outpatient (CLI) | payer MEDICARE, SELFPAY ==
[2022-05-18 07:56] VITALS: BP 138/54; PULSE 70; RESP 16; TEMP 36.4; O2SAT 99
[2022-05-18 09:05] VITALS: BP 107/53; PULSE 64; RESP 14; TEMP 36.6; O2SAT 97
== END | disposition home or self-care (01) ==
LOC: MEDOUTP 07:51
PROVIDERS: PCP Family Medicine; Referring Provider Urology; Visit Provider Urology
DX: N30.00 Acute cystitis without hematuria (principal)
CPT/HCPCS: 96365; 96366; J7050; A4216

== ENCOUNTER → 2022-05-19 | Outpatient (CLI) | payer MEDICARE, SELFPAY ==
[2022-05-19 07:57] VITALS: BP 115/54; PULSE 78; RESP 16; TEMP 36.3
[2022-05-19] MEDS: 0.9% NaCl Peripheral Flush Adult/Peds IV (08:05)
[2022-05-19] MEDS: 0.9% NaCl IVPB Med Flush (250 mL) 15 ML IV (08:05)
[2022-05-19 09:06] VITALS: BP 122/59; PULSE 65; RESP 16; TEMP 36.3; O2SAT 99
== END | disposition home or self-care (01) ==
LOC: MEDOUTP 07:51
PROVIDERS: PCP Family Medicine; Referring Provider Urology; Visit Provider Urology
DX: N30.00 Acute cystitis without hematuria (principal); B96.20 Unspecified Escherichia coli [E. coli] as the cause of diseases classified elsewhere
CPT/HCPCS: 96365; J7050; A4216

== ENCOUNTER 2022-05-20 08:24 | Outpatient (CLI) | payer MEDICARE, SELFPAY ==
[2022-05-20] MEDS: 0.9% NaCl PICC Flush IV (10:35)
[2022-05-20 10:36] VITALS: BP 116/60; PULSE 68; RESP 16; TEMP 36.6; O2SAT 98
[2022-05-20 10:37] VITALS: BP 110/70; PULSE 70; RESP 18; TEMP 36.6; O2SAT 98
== END 2022-05-20 10:40 | disposition home or self-care (01) ==
LOC: MEDOUTP 08:24 → PCU 08:25
PROVIDERS: PCP Family Medicine; Referring Provider Urology; Visit Provider Urology
DX: N30.00 Acute cystitis without hematuria (principal); B96.20 Unspecified Escherichia coli [E. coli] as the cause of diseases classified elsewhere
CPT/HCPCS: 96365; 96367; A4216

== ENCOUNTER 2022-05-21 08:25 | Outpatient (CLI) | payer MEDICARE, SELFPAY ==
[2022-05-21] MEDS: 0.9% NaCl IVPB Med Flush (250 mL) 15 ML IV (09:00)
[2022-05-21] MEDS: 0.9% NaCl Peripheral Flush Adult/Peds IV ×2 (09:00→10:01)
[2022-05-21 09:03] VITALS: BP 111/58; PULSE 64; RESP 14; TEMP 36.6; O2SAT 98
== END 2022-05-21 10:17 | disposition home or self-care (01) ==
LOC: MEDOUTP 08:25 → PCU 08:26
PROVIDERS: PCP Family Medicine; Referring Provider Urology; Visit Provider Urology
DX: N30.00 Acute cystitis without hematuria (principal)
CPT/HCPCS: 96365; J7050; A4216

== ENCOUNTER → 2022-09-14 | Outpatient (CLI) | payer MEDICARE, SELFPAY ==
--- NOTE | 2022-09-14 14:53 | CT_ITS ---
STUDY: CT ABDOMEN AND PELVIS WITH AND WITHOUT CONTRAST REASON FOR EXAM: Female, 81 years old patient with gross hematuria for 2-3 weeks. 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 RADIATION DOSAGE (If Supplied By Facility): CTDIvol = ( 12.05 ) mGy, DLP = ( 1351.24 ) mGycm TECHNIQUE: Transaxial images were obtained from the dome of the diaphragm to the symphysis pubis without oral contrast. 100 ml of Isovue-300 was administered. Sagittal and coronal images were reconstructed. Individualized dose optimization techniques were used for this CT. COMPARISON: CT of abdomen and pelvis July 01, 2021. FINDINGS: There is bilateral basilar subsegmental atelectasis. The visualized portions of the heart appears enlarged. There are scattered lucencies in the liver that may represent tiny cysts. Largest cyst is in the left lobe of liver measures approximately 10 mm in size. Normal gallbladder and extrahepatic biliary system. Normal spleen. Normal pancreas. Normal bilateral adrenal glands. Normal right kidney. There is a left-sided renal cysts arising from the upper pole left kidney measuring approximately 3.9 x 2.4 x 2.9 cm. Normal visualized stomach. There is no obvious dilated bowel, ascites or pneumoperitoneum. Small bowel has a grossly normal appearance. There are multiple sigmoid colon diverticula without obvious diverticulitis. The appendix is visualized and appears normal. There is diffuse atherosclerotic calcification of the abdominal aorta with elongation and tortuosity, but without a demonstrated aneurysm. Normal inferior vena cava. Normal retroperitoneum. Normal urinary bladder. There is a prominent uterine calcification probably secondary to leiomyoma. Normal abdominal wall. There are diffuse degenerative changes of the visualized spine. Bones appear osteopenic. There is mild curvature of the lumbar spine with convexity towards the left. CT/CT Abd/Pelvis W/WO Contrast IMPRESSION: No CT evidence of acute intra-abdominal disease. Electronically Signed: Belia Petit MD at 7:28 EDT ,
== END | disposition home or self-care (01) ==
PROVIDERS: PCP Family Medicine; Referring Provider Urology; Visit Provider Urology
DX: R31.0 Gross hematuria (principal); Z87.442 Personal history of urinary calculi
CPT/HCPCS: 74178; Q9967

== ENCOUNTER → 2022-09-21 | Outpatient (CLI) | payer MEDICARE, SELFPAY | END | disposition home or self-care (01) | LOC: LABSPEC 15:32 | PROVIDERS: PCP Family Medicine; Referring Provider Urology; Visit Provider Urology | DX: R31.0 Gross hematuria (principal) | CPT/HCPCS: 87086; 87088 ==

== ENCOUNTER → 2022-10-31 | Outpatient (CLI) | payer MEDICARE, SELFPAY | END | disposition home or self-care (01) | LOC: LABSPEC 16:03 | PROVIDERS: PCP Family Medicine; Referring Provider Urology; Visit Provider Urology | DX: R31.9 Hematuria, unspecified (principal) | CPT/HCPCS: 87077; 87086; 87088; 87186 ==

== ENCOUNTER 2022-11-01 07:43 | Day surgery (SDC) | payer MEDICARE, SELFPAY ==
[2022-11-01] MEDS: Lactated Ringers 1,000 ML 15 ML IV (08:23)
[2022-11-01 08:25] VITALS: BP 107/63; PULSE 90; RESP 18; TEMP 36.3; O2SAT 96; BMI 25.1
[2022-11-01 08:51] LABS: Bedside Glucose 175 mg/dL (74-106)
--- NOTE | 2022-11-01 09:45 | BLA_PTH ---
PATIENT: KENNY VELASCO LOC: [facility] [place] U#:[id number] AGE/SX: 82/F ROOM: RE11/01/[address]: Dr. Omar Mcclure MD : [id number] BED: DIS: 11/01/2022 SPEC #: [id number] RECD: 11/01/22 11:45 STATUS: JUAN CURIEL #: [id number] SANDIP: 11/01/22 09:[address]: Omar Mcclure DEPT: SURGICAL PATHOLOGY RECD BY: Meghan John ENTERED: 11/01/22 12:54 SP TYPE: BLADDER BX OTHR DR: Dr. Julian Villa MD Tissues: Urinary bladder, NOS Procedures: Surgery Specimen Level IV HEADER OPERATION: Cystoscopy with bilateral retrograde pyelograms, cauterization PRE-OP DIAGNOSIS: Gross hematuria TISSUE SUBMITTED: Bladder biopsy MICROSCOPIC DIAGNOSIS Bladder, biopsy: Acute and chronic inflammation, granulation tissue reaction and prominent lymphoid aggregate. Negative for malignancy. See comment. SJ:cata 11/02/2022 COMMENT The epithelium is completely denuded. Detrusor muscle is not present in the specimen. 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 MICROSCOPIC DESCRIPTION Slides are reviewed. GROSS DESCRIPTION Received in fixative is one container labeled with the patient's name and designated bladder biopsy. The specimen consists of one irregular fragment of light rodriguez soft tissue that measures 0.2 x 0.2 x 0.1 cm. The specimen is totally submitted in one cassette. / Radha 11/01/2022 TC:2 CPT: 11255
--- NOTE | 2022-11-01 10:22 | HP.PCM_ITS ---
HPI - General General Date of Service: 11/01/22 Chief Complaint: Gross hematuria HPI Narrative KENNY VELASCO, is a 82 F who presents for evaluation for gross hematuria she had a cystoscopy in the office was nondiagnostic because of bloody urine Vilma taken to surgery today due to cystoscopy in the office possible biopsy and also do a bilateral trigger pyelograms [facility] Medical History (Updated 10/18/22 @ 15:26 by Anamika Guillory) Arthritis Cancer Cardiology follow-up encounter Diabetes Diabetes mellitus, type II DVT (deep venous thrombosis) Fatty liver Former smoker GERD (gastroesophageal reflux disease) High cholesterol History of bladder cancer History of stress test HTN (hypertension) Hyperlipidemia Lung nodule Onychogryposis Schatzki's ring SVT (supraventricular tachycardia) Tubular adenoma of colon Uterovaginal prolapse, incomplete Wears glasses Home Medications Eliquis 5 mg PO BID 09/23/21 [History Last Taken 10/26/22] atorvastatin 20 mg tablet 40 mg PO QHS 09/23/21 [History Last Taken Unknown] famotidine 20 mg tablet 20 mg PO BID 09/23/21 [History Last Taken 10/31/22] hydrochlorothiazide 25 mg tablet 12.5 mg PO DAILY 09/23/21 [History Last Taken Unknown] lisinopril 20 mg tablet 20 mg PO DAILY 09/23/21 [History Last Taken 10/31/22] nateglinide 60 mg tablet 60 mg PO TID 09/23/21 [History Last Taken Unknown] sitagliptin phosphate 25 mg tablet (Januvia) 100 mg PO DAILY 09/23/21 [History Last Taken Unknown] magnesium 250 mg tablet 250 mg PO DAILY 12/16/21 [History Last Taken Unknown] acetaminophen 500 mg capsule 1,000 mg PO BID 10/18/22 [History Last Taken Unknown] ascorbic acid (vitamin C) 1,000 mg tablet (Vitamin C) 1 g PO DAILY 10/18/22 [History Last Taken Unknown] biotin 10,000 mcg capsule 10,000 mcg PO DAILY 10/18/22 [History Last Taken Unknown] cranberry 400 mg capsule 1,000 mg PO DAILY 10/18/22 [History Last Taken Unknown] insulin detemir U-100 100 unit/mL (3 mL) subcutaneous pen (Levemir FlexPen) 5 unit subcut QHS 10/18/22 [History Last Taken 10/30/22] spzpgiqu-vid-kclnq acid 0.4 mg-lycopene 300 mcg-lutein 250 mcg tablet (Centrum Silver) 1 tab PO DAILY 10/18/22 [History Last Taken Unknown] Allergy/AdvReac Type Severity Reaction Status Date / Time omeprazole [From Prilosec] AdvReac Mild PT UNSURE Verified 10/18/22 15:09 OF REACTION metformin AdvReac PT UNSURE Verified 10/18/22 15:09 OF REACTION Family History (Updated 12/16/21 @ 04:[address] Juli Anand MD) Mother Hypertension Heart disease CHF (congestive heart failure) Rheumatoid arthritis Father PUD (peptic ulcer disease) s/p partial gastrectomy as a result of his PUD severity. Surgical History History of bilateral tubal ligation History of bladder surgery History of esophageal surgery History of tonsillectomy and adenoidectomy Social History (Updated 12/16/21 @ 02:[address] Juli Anand MD) household members: spouse Smoking Status: Former smoker alcohol intake: never substance use type: does not use Vital Signs Vital Signs Vital Signs: 11/01/22 08:25 11/01/22 08:25 Temperature 97.3 F L Temperature Source Temporal Pulse Rate 90 Respiratory Rate 18 Respiratory Pattern Normal Blood Pressure 107/63 Blood Pressure Mean 77 Blood Pressure Source Monitor Blood Pressure Position Semi-Fowlers Blood Pressure Location Right Arm Pulse Ox 96 Oxygen Delivery Method Room Air Weight Weight: 60.419 kg Body Mass Index (BMI) 25.1 Results Lab / Micro Data Labs: Laboratory Results - last 24 hr 11/01/22 08:11: POC Glucose 175 H
--- NOTE | 2022-11-01 10:23 | DCINST_ITS ---
Discharge Instructions Diet Discharge Diet: No restrictions Activity Discharge Activity: Return to Normal Activity and May Not Drive (while taking narcotic pain medications.) Follow Up Care Please Follow Up With: Omar Mcclure MD When: Call [phone] for an appointment Test Results: Test results from this visit will be discussed in further detail at your follow- up appointment, if applicable. Discharge Plan Admission Primary Reason for Your Visit: jagjito Attending Provider: Omar Mcclure Primary Care Provider: Julian Villa Discharge Orders/Prescriptions Prescriptions: Continued atorvastatin 20 mg Tablet 40 mg PO QHS lisinopril 20 mg Tablet 20 mg PO DAILY nateglinide 60 mg Tablet 60 mg PO TID famotidine 20 mg Tablet 20 mg PO BID hydrochlorothiazide 25 mg Tablet 12.5 mg PO DAILY Januvia 25 mg Tablet 100 mg PO DAILY Eliquis 5 mg PO BID magnesium 250 mg Tablet 250 mg PO DAILY acetaminophen 500 mg capsule 1,000 mg PO BID Centrum Silver 0.4 mg-300 mcg- 250 mcg tablet 1 tab PO DAILY ascorbic acid (vitamin C) [Vitamin C] 1,000 mg tablet 1 g PO DAILY cranberry 400 mg capsule 1,000 mg PO DAILY Rx Instructions: administer with a meal Levemir FlexPen 100 unit/mL (3 mL) insulin pen 5 unit SUBCUT QHS Patient Comments: Inject 5 Units subcutaneously daily at bedtime. biotin 10,000 mcg capsule 10,000 mcg PO DAILY Referrals / Follow Up: Julian Villa MD [Primary Care Provider] - Disposition Disposition (needs filled in before D/C Order can be placed): Home, Self Care
--- NOTE | 2022-11-01 10:39 | NURSING ---
pt given update about surgery delay
[2022-11-01] MEDS: Cefazolin 2 GM in 0.9% Normal Saline 100 ML IV (10:54)
--- NOTE | 2022-11-01 10:59 | OP.PCM_ITS ---
Report of Operation Date of Procedure: 11/01/22 Pre-Operative Diagnosis: Gross hematuria Post-Operative Diagnosis: Same, bladder lesion Surgery/Procedure Performed:: Cystoscopy biopsy of bladder lesion fulguration of bladder lesion site lesion size was 0.5 cm Bilateral retrograde pyelograms Description of Surgical Findings:: Patient was taken back to the operating room at the smooth induction of general anesthesia she was placed in dorsolithotomy position the urethrovaginal area prepped and draped in usual sterile fashion. She does have a history of bladder cancer in the past. Has been having heavy bleeding. We did a recent urine to check for infection which was negative she does have a culture pending from yesterday with and is currently on antibiotics. The urethrovaginal area prepped and draped in usual fashion when in the bladder with a 21 Maltese rigid cystourethroscope in the back of the bladder posterior there was a lesion it did not look papillary did not look like true bladder cancer lesion but it was a lesion that was raised looks suspicious but nothing more suspicious for a benign lesion but I did a biopsy of this lesion with a biopsy forcep after it was assembled. And then I cauterized the lesion site completely. We then used a cone-tip catheter and I performed a retrograde pyelogram on the left side and this was normal and the right-sided that another retrograde pyelogram this was also normal. I then drained the bladder the lesion was cauterized completely no other lesion seen in the bladder patient will follow up in the office to review the biopsy results and will continue with antibiotics. Surgeon: Omar Mcclure Type of Anesthesia: Local MAC Estimated Blood Loss (mL): 0 Admit VTE Documentation VTE Present on Admission: No VTE Mechan Device Prophylaxis: SCD's VTE Pharm Prophylaxis ordered?: No
[2022-11-01 11:25] VITALS: BP 107/63; BP 112/56; PULSE 77; RESP 16; TEMP 36.2; O2SAT 94
[2022-11-01 11:30] VITALS: BP 106/58; BP 107/63; PULSE 74; RESP 16; O2SAT 94
[2022-11-01 11:35] VITALS: BP 107/63; BP 117/56; PULSE 73; RESP 16; O2SAT 94
[2022-11-01 11:40] VITALS: BP 107/63; BP 112/52; PULSE 72; RESP 16; TEMP 36.1; O2SAT 96
[2022-11-01 12:05] VITALS: BP 107/63
== END 2022-11-01 12:12 | disposition home or self-care (01) ==
LOC: SDC 07:49 → AC 07:49
PROVIDERS: PCP Family Medicine; Referring Provider Urology; Visit Provider Urology
PROC: (CPT 52332; principal; 2022-11-01 09:35)
DX: R31.0 Gross hematuria (principal); E11.9 Type 2 diabetes mellitus without complications; I10 Essential (primary) hypertension; Z87.891 Personal history of nicotine dependence; E78.5 Hyperlipidemia, unspecified; Z79.01 Long term (current) use of anticoagulants; Z85.51 Personal history of malignant neoplasm of bladder; K21.9 Gastro-esophageal reflux disease without esophagitis
CPT/HCPCS: 52224; 00910; 76000; 82962; 88305; J7120; J2405

== ENCOUNTER → 2022-11-23 | Outpatient (CLI) | payer MEDICARE, SELFPAY | END | disposition home or self-care (01) | LOC: LABSPEC 16:28 | PROVIDERS: PCP Family Medicine; Referring Provider Urology; Visit Provider Urology | DX: R31.0 Gross hematuria (principal) ==

== ENCOUNTER → 2022-11-28 | Outpatient (CLI) | payer MEDICARE, SELFPAY | END | disposition home or self-care (01) | LOC: LAB 11:37 | PROVIDERS: PCP Family Medicine; Referring Provider Urology; Visit Provider Urology | DX: R10.9 Unspecified abdominal pain (principal) | CPT/HCPCS: 87077; 87086; 87088; 87186 ==

== ENCOUNTER → 2023-04-19 | Outpatient (CLI) | payer MEDICARE, SELFPAY ==
--- OUTSIDE RECORDS SUMMARY | 2023-04-19 20:05 | XMS RPT_ITS | CCD ---
Author Name Unknown Address [facility] [address] [place] [address] Organization [facility] Care Team Providers Care Territory Account Representative Name Role Phone Osman Villa MD Primary Care Provider OSMAN VILLA Attending Unavailable MARCO, OSMAN Mcmanus Primary Care Unavailable MARCO, OSMAN Mcmanus Referring Unavailable MARCO, OSMAN Mcmanus Primary Care Unavailable MARCO, OSMAN Mcmanus Referring Unavailable MARCO, OSMAN Mcmanus Primary Care Unavailable MARCO, OSMAN Mcmanus Referring Unavailable MARCO, OSMAN Mcmanus Primary Care Unavailable MARCO, OSMAN Mcmanus Referring Unavailable MARCO, OSMAN Mcmanus Primary Care Unavailable MARCO, OSMAN Mcmanus Primary Care Unavailable OSMAN VILLA Attending Unavailable MARCO, OSMAN Mcmanus Referring Unavailable MARCO, OSMAN Mcmanus Referring Unavailable MARCO, OSMAN Mcmanus Primary Care Unavailable MARCOOSMAN Attending Unavailable OSMAN VILLA Primary Care Unavailable MARCO, OSMAN Mcmanus Referring Unavailable MARCO, OSMAN Mcmanus Primary Care Unavailable MARCO, OSMAN Mcmanus Referring Unavailable MARCO, OSMAN Mcmanus Primary Care Unavailable [place] Osman LARA Primary Care Provider Allergies Allergy Classification Reported Allergen(s) Allergy Type Date of Onset Reaction(s) Facility (20 sources) metFORMIN; Translations: [METFORMIN] Drug Allergy 10-12-2017 GI Upset [facility] Work Phone: (20 sources) Omeprazole; Translations: [OMEPRAZOLE MAGNESIUM] Drug Allergy 09-02-2012 GI Upset [facility] (20 sources) pioglitazone; Translations: [PIOGLITAZONE] Drug Allergy 03-24-2019 Contraindicatio n-Medical Surgical [facility] Work Phone: Medications Current Medications Medication Drug Class(es) Dates Sig (Normalized) Sig (Original) cefdinir 300 mg oral capsule (3 sources) Cephalosporin Antibacterial Start: 03-01-2022 End: 03-11-2022 take 1 capsule by mouth twice daily cefdinir (OMNICEF) 300 mg capsule Indications: Recurrent UTI (urinary tract infection) Take 1 capsule by mouth twice daily for 10 days. 20 capsule 0 03/01/2022 03/11/2022 Active Completed/Discontinued Medications Medication Drug Class(es) Dates Sig (Normalized) Sig (Original) 8 hr acetaminophen 650 mg extended release oral tablet (20 sources) take 1 tablet by mouth every eight hours as needed acetaminophen 650 mg CR tablet Take 650 mg by mouth every 8 hours as needed. 0 Active Problems Active Problems Problem Classification Problem Date Documented Da te Episodic/Chronic Acquired foot deformities (1 source) Hammer toe; Translations: [Other hammer toe(s) (acquired), right foot] Chronic Cardiac dysrhythmias (20 sources) Supraventricular tachycardia; Translations: [Supraventricular tachycardia] Onset: 8 02-14-2018 Chronic Chronic kidney disease (15 sources) Chronic kidney disease stage 3A ; Translations: [Chronic kidney disease, stage 3a (HCC)] Onset: 3 10-04-2022 Chronic Chronic kidney disease (1 source) Chronic kidney disease; Translations: [Chronic kidney disease, stage 3a (HCC)] Onset: 3 Diabetes mellitus with complications (20 sources) Type 2 diabetes mellitus; Translations: [Type 2 diabetes mellitus with other diabetic kidney complication] Onset: 7 06-29-2016 Chronic Diabetes mellitus without complication (1 source) Hyperglycemia; Translations: [Hyperglycemia, unspecified] Episodic Disorders of lipid metabolism (20 sources) Mixed hyperlipidemia; Translations: [Mixed hyperlipidemia] Onset: 5 03-08-2015 Chronic Esophageal disorders (20 sources) Gastroesophageal reflux disease; Translations: [Gastro-esophageal reflux disease without esophagitis] Onset: 3 08-08-2012 Chronic Essential hypertension (20 sources) Benign essential hypertension; Translations: [Essential (primary) hypertension] Onset: 5 11-01-2004 Chronic Immunizations and screening for infectious disease (3 sources) Viral screening status; Translations: [Encounter for screening for other viral diseases] Episodic Mycoses (1 source) Onychomycosis; Translations: [Tinea unguium] Episodic Nonspecific chest pain (1 source) Chest pain; Translations: [Chest pain, unspecified] Episodic Other bone disease and musculoskeletal deformities (1 source) Disorder of skeletal system; Translations: [Disorder of bone, unspecified] Episodic Other bone disease and musculoskeletal deformities (1 source) Disorder of bone; Translations: [Other specified disorders of bone density and structure, other site] Episodic Other connective tissue disease (1 source) Pain of toe of left foot; Translations: [Pain in left toe(s)] Episodic Other connective tissue disease (1 source) Pain in buttock; Translations: [Myalgia, other site] 10-04-2022 Episodic Other liver diseases (20 sources) Liver cyst; Translations: [Other specified diseases of liver] Onset: 0 Chronic Other liver diseases (20 sources) Steatosis of liver; Translations: [Fatty (change of) liver, not elsewhere classified] Onset: 2 Chronic Other liver diseases (1 source) Liver mass; Translations: [Hepatomegaly, not elsewhere classified] Episodic Other nutritional; endocrine; and metabolic disorders (1 source) Hypercalcemia; Translations: [Hypercalcemia] Chronic Other nutritional; endocrine; and metabolic disorders (1 source) Hypercalcemia; Translations: [Hypercalcemia] Onset: 3 Chronic Other screening for suspected conditions (not mental disorders or infectious disease) (2 sources) Patient encounter status; Translations: [Encounter for screening mammogram for malignant neoplasm of breast] 02-01-2022 Episodic Other skin disorders (2 sources) Onychogryposis; Translations: [Onychogryphosis] Episodic Phlebitis; thrombophlebitis and thromboembolism (20 sources) Chronic deep venous thrombosis; Translations: [Chronic embolism and thrombosis of unspecified deep veins of unspecified lower extremity] Onset: 1 02-10-2021 Chronic Prolapse of female genital organs (20 sources) Midline cystocele; Translations: [Cystocele, midline] Onset: 9 12-21-2008 Chronic Urinary tract infections (2 sources) Recurrent urinary tract infection; Translations: [Urinary tract infection, site not specified] Episodic Past or Other Problems Problem Classification Problem Date Documented Da te Episodic/Chronic Abdominal hernia (20 sources) Hiatal hernia; Translations: [Diaphragmatic hernia without obstruction or gangrene] Onset: 08-08-2012 08-08-2012 Episodic Cancer of bladder (20 sources) H/O: malignant neoplasm; Translations: [Personal history of malignant neoplasm of bladder] Onset: 05-24-2007 11-10-2020 Episodic Genitourinary symptoms and ill-defined conditions (20 sources) Microscopic hematuria; Translations: [Other microscopic hematuria] Onset: 06-29-2016 Episodic Other and unspecified benign neoplasm (20 sources) Benign neoplasm of colon; Translations: [Benign neoplasm of colon, unspecified] Onset: 11-27-2006 11-27-2006 Episodic Other and unspecified benign neoplasm (20 sources) Tubular adenoma of colon; Translations: [Benign neoplasm of colon, unspecified] Onset: 08-29-2013 08-29-2013 Episodic Other bone disease and musculoskeletal deformities (20 sources) Osteopenia; Translations: [Other specified disorders of bone density and structure, unspecified site] Onset: 01-25-2011 01-25-2011 Episodic Other connective tissue disease (1 source) Myalgia, other site; Translations: [Buttock pain] Onset: 10-04-2022 Episodic Other diseases of kidney and ureters (20 sources) Cyst of kidney; Translations: [Cyst of kidney, acquired] Onset: 12-13-2021 Episodic Other lower respiratory disease (20 sources) Nodule of lung; Translations: [Solitary pulmonary nodule] Onset: 07-02-2019 06-28-2020 Episodic Results Test Name Value Interpretation Reference Range Facil ity Vital Signs Date Time Vital Sign Value Performing Clinician Denise webber 01-22-2023 11:06-0500 Diastolic blood pressure 80 mm[Hg] Osman Villa MD Work Phone: [facility] 01-22-2023 11:06-0500 Systolic blood pressure 138 mm[Hg] Osman Villa MD Work Phone: [facility] 01-22-2023 10:37-0500 Body height 154.9 cm Osman Villa MD Work Phone: [facility] 01-22-2023 10:37-0500 Body weight 59.42 kg Osman Villa MD Work Phone: [facility] 01-22-2023 10:37-0500 Heart rate 69 /min Osman Villa MD Work Phone: [facility] 01-22-2023 10:37-0500 SaO2% (BldA) [Mass fraction] 99 % Osman Villa MD Work Phone: [facility] 10-04-2022 11:00-0400 Body height 154.9 cm Osman Villa MD Work Phone: [facility] 10-04-2022 11:00-0400 Body weight 61.51 kg Osman Villa MD Work Phone: [facility] 10-04-2022 11:00-0400 Diastolic blood pressure 62 mm[Hg] Osman Villa MD Work Phone: [facility] 10-04-2022 11:00-0400 Heart rate 73 /min Osman Villa MD Work Phone: [facility] 10-04-2022 11:00-0400 SaO2% (BldA) [Mass fraction] 95 % Osman Villa MD Work Phone: [facility] 10-04-2022 11:00-0400 Systolic blood pressure 98 mm[Hg] Osman Villa MD Work Phone: [facility] 03-01-2022 12:55-0500 Body weight 62.14 kg Rebecca Mcgrath SOLAR FIELD SERVICE TECHNICIAN.GREEN CHAIN OPERATOR Work Phone: [facility] 03-01-2022 12:55-0500 Diastolic blood pressure 76 mm[Hg] Rebecca Mcgrath SOLAR FIELD SERVICE TECHNICIAN.GREEN CHAIN OPERATOR Work Phone: [facility] 03-01-2022 12:55-0500 Heart rate 88 /min Rebecca Mcgrath SOLAR FIELD SERVICE TECHNICIAN.GREEN CHAIN OPERATOR Work Phone: [facility] 03-01-2022 12:55-0500 Respiratory rate 14 /min Rebecca Mcgrath SOLAR FIELD SERVICE TECHNICIAN.GREEN CHAIN OPERATOR Work Phone: [facility] 03-01-2022 12:55-0500 Systolic blood pressure 120 mm[Hg] Rebecca Mcgrath SOLAR FIELD SERVICE TECHNICIAN.GREEN CHAIN OPERATOR Work Phone: [facility] 12-23-2021 14:17-0400 Body height 154.9 cm Osman Villa MD Work Phone: [facility] 12-23-2021 14:17-0400 Body weight 61.15 kg Osman Villa MD Work Phone: [facility] 12-23-2021 14:17-0400 Diastolic blood pressure 78 mm[Hg] Osman Villa MD Work Phone: [facility] 12-23-2021 14:17-0400 Heart rate 87 /min Osman Villa MD Work Phone: [facility] 12-23-2021 14:17-0400 SaO2% (BldA) [Mass fraction] 97 % Osman Villa MD Work Phone: [facility] 12-23-2021 14:17-0400 Systolic blood pressure 118 mm[Hg] Osman Villa MD Work Phone: [facility] 12-13-2021 09:26-0400 Body height 154.9 cm NA North PA-C Work Phone: [facility] 12-13-2021 09:26-0400 Body weight 60.78 kg NA North PA-C Work Phone: [facility] 12-13-2021 09:26-0400 Diastolic blood pressure 50 mm[Hg] NA North PA-C Work Phone: [facility] 12-13-2021 09:26-0400 Heart rate 81 /min NA North PA-C Work Phone: [facility] 12-13-2021 09:26-0400 SaO2% (BldA) [Mass fraction] 96 % NA North PA-C Work Phone: [facility] 12-13-2021 09:26-0400 Systolic blood pressure 100 mm[Hg] NA North PA-C Work Phone: [facility] 09-14-2021 11:29-0400 Body weight 58.97 kg Osman Villa MD Work Phone: [facility] 09-14-2021 11:29-0400 Diastolic blood pressure 72 mm[Hg] Osman Villa MD Work Phone: [facility] 09-14-2021 11:29-0400 Heart rate 76 /min Osman Villa MD Work Phone: [facility] 09-14-2021 11:29-0400 Systolic blood pressure 128 mm[Hg] Osman Villa MD Work Phone: [facility] Encounters Encounter Date Encounter Type Care Provider Facility Start: 04-18-2023 ambulatory Osman Villa MD Work Phone: [facility] Procedures Date Procedure Procedure Detail Performing Clinician Start: 03-01-2022 Culture bacterial quanttative colony count urine Rebecca Mcgrath SOLAR FIELD SERVICE TECHNICIAN.GREEN CHAIN OPERATOR Work Phone: Start: 02-01-2022 Screening mammograph y bi 2-view breast inc cad Osman Villa MD Work Phone: Start: 09-14-2021 Adult depression scr eening assessment Osman Villa MD Work Phone: Start: 07-08-2021 Mri abdomen w/o & w/contrast material Osman Villa MD Work Phone: Start: 06-10-2020 Adult depression scr eening assessment Osman Villa MD Work Phone: Plan of Treatment Date Care Activity Detail Author Start: 02-16-2024 Glaucoma screening Dilated Retinal E xam [facility] Start: 01-23-2024 3 comp foot exam completed Diabetic Foot Exam [facility] Start: 01-23-2024 Annual PCP Team Web Page Developer rip Disease Visit Annual PCP Team Chronic Disease Visit [facility] Start: 01-23-2024 Diabetic foot examination Diabetic F oot Exam [facility] Start: 01-23-2024 Hepatitis B Vaccine (1 of 3 - Risk 3-dose series) Hepatitis B Vaccine (1 of 3 - Risk 3-dose series) [facility] Immunizations Immunization Date Immunization Notes Care Provider Fa cility 12-15-2022 influenza, injectabl e, quadrivalent, preservative free Osman Villa MD Work Phone: [facility] 12-15-2022 respiratory syncytia l virus (RSV) vaccine, bivalent (ABRYSVO) Osman Villa MD Work Phone: [facility] 12-15-2021 influenza (HD-IIV4) vaccine, age 65+ yr, high dose, quadrivalent, PF (FLUZONE HIGH-DOSE) Osman Villa MD Work Phone: [facility] 12-15-2021 influenza, injectabl e, quadrivalent, preservative free Osman Villa MD Work Phone: [facility] 12-15-2021 influenza virus vacc ine, unspecified formulation Osman Villa MD Work Phone: [facility] 12-13-2020 influenza, high-dose , quadrivalent vaccine (FLUZONE HIGH DOSE QUADRIVALENT) DESTINEE North PA-C Work Phone: [facility] 04-28-2020 COVID-19 vaccine, ag e 12+ yr (PFIZER-BIONTECH - PURPLE TOP) Osman Villa MD Work Phone: [facility] Work Phone: 04-08-2020 COVID-19 vaccine, ag e 12+ yr (PFIZER-BIONTECH - PURPLE TOP) Osman Villa MD Work Phone: [facility] 12-02-2019 influenza, high dose seasonal, preservative-free Osman Villa MD Work Phone: [facility] 12-02-2019 influenza, high-dose , quadrivalent vaccine (FLUZONE HIGH DOSE QUADRIVALENT) Osman Villa MD Work Phone: [facility] 12-21-2018 zoster vaccine recombinant Osman Villa MD Work Phone: [facility] 10-15-2018 zoster vaccine recombinant Osman Villa MD Work Phone: [facility] 03-08-2015 pneumococcal polysaccharide vaccine, 23 valent Osman Villa MD Work Phone: [facility] 03-04-2014 pneumococcal conjuga te vaccine, 13 valent Osman Villa MD Work Phone: [facility] 08-08-2012 tetanus and diphther ia toxoids, adsorbed, preservative free, for adult use (2 Lf of tetanus toxoid and 2 Lf of diphtheria toxoid) Osman Villa MD Work Phone: [facility] 10-01-2007 pneumococcal polysaccharide vaccine, 23 valent Osman Villa MD Work Phone: [facility] Work Phone: 08-07-2002 tetanus and diphther ia toxoids, adsorbed, preservative free, for adult use (2 Lf of tetanus toxoid and 2 Lf of diphtheria toxoid) Osman Villa MD Work Phone: [facility] Work Phone: Payers Date Payer Category Payer Unknown [id number] 2013 Medicare MEDICARE MEDICAR E A AND B [id number] 2013-Present [phone] [place] [address] Medicare [id number] 2013 Medicare [id number] 2013 Medicare [id number] 2013 Medicare [id number] 2013 Unknown [employer] [place] [employer] [place] MEDICARE SUPPLEMENT [id number] 2013-Present [phone] [id number] [employer] [place] [address] Indemnity [id number] 2013 Unknown [id number] Social History Date Type Detail Facility Start: 12-13-2021 Tobacco smoking status NHIS Ex-smoker [facility] End: 08-03-1982 History of tobacco use Current smoker [facility] Start: 01-25-2021 End: 01-22-2023 Alcohol intake Current drinker of alcohol (finding) [facility] Start: 09-18-2019 End: 03-12-2022 History SDOH Alcohol Frequency 5 [facility] Start: 09-18-2019 End: 03-12-2022 History SDOH Alcohol Std Drinks 1 [facility] Start: 01-27-2020 History SDOH Alcohol Comment a glass of wine with dinner every night [facility] Start: 01-08-2020 End: 03-12-2022 History SDOH Social Connections Get Together 3 [facility] Start: 06-27-2019 History SDOH Physical Activity DPW 0 [facility] Start: 03-19-2019 End: 03-12-2022 History SDOH Stress 2 [facility] Start: 03-19-2019 Education 17 [facility] Start: 1940 Sex Assigned At Not on file [facility] Start: 06-24-2021 End: 02-01-2022 Exposure to SARS-CoV-2 (event) Not sure [facility] Work Phone: End: 08-03-1982 History of tobacco use Cigarette Smoker [facility] Start: 12-13-2021 Tobacco use and exposure Smokeless tobacco non-user [facility] Start: 1940 Sex Assigned At Female [facility] Start: 03-12-2022 History SDOH Physical Activity DPW 7 [facility] Start: 03-12-2022 End: 10-04-2022 History of Social function [facility] Start: 03-12-2022 End: 10-04-2022 Social connection and isolation panel [facility] Do you belong to any clubs or organizations such as denominational groups, unions, fraternal or athletic groups, or school groups? Yes [facility] Are you now , , , , never or living with a partner? [facility] How often to you hav e a drink containing alcohol? 4 or more times a week [facility] How many standard dr inks containing alcohol do you have on a typical day? 1 or 2 [facility] How often do you hav e 6 or more drinks on 1 occasion? Never [facility] How hard is it for y ou to pay for the very basics like food, housing, medical care, and heating Not hard at all [facility] Do you feel stress - tense, restless, nervous, or anxious, or unable to sleep at night because your mind is troubled all the time - these days [OSQ] Only a little [facility] (I/We) worried wheth er (my/our) food would run out before (I/we) got money to buy more. Never true [facility] In the past 12 month s, was there a time when you were not able to pay the mortgage or rent on time? No [facility] Start: 12-10-2021 Gender identity Identifies as female gender (finding) [facility] Start: 12-10-2021 Sexual orientation Heterosexual (finding) [facility] Medical Equipment Procedure Code Equipment Code Equipment Origin al Text Equipment Identifier Dates Start: 06-08-2020 End: 11-28-2022 Clinical Notes 08-08-2017 to 04-18-2023 Telephone Encounter - Chela Tierney - 04/18/2023 3:47 PM TEAGANWiChela godinez - 04/18/2023 3:42 PM ESTLetter - Coordinator, Jovi - 02/06/2023 7:17 AM EST Note Date & Type Note Facility 04-18-2023 Miscellaneous Notes Patient reviewed for Population Health Medication Adherence Pended the following prescription(s) for review. Requested Prescriptions Pending Prescriptions Disp Refills atorvastatin (LIPITOR) 40 mg tablet 90 tablet 3 Sig: Take 1 tablet by mouth daily at bedtime. For cholesterol. Future Appointments Date Time Provider Department Center 08/03/2023 10:40 AM Osman Villa MD [facility] Please review and refill if appropriate. Thank you. Chela Tierney April 18, 2023 3:48 PM documented in this encounter [facility] 04-18-2023 History of Present illness Narrative Kenny Newberry is identified through a medication adherence outreach initiative based on pharmacy claims data from [employer] (insurer) for ANGELA medication(s) and Statin medication(s). Patient is reviewed 04/18/23 due to medication adherence concerns with the following medications (name, strength, sig): atorvastatin 40mg, take 1 tablet daily, lisinopril 20mg, take 1 tablet daily. Per data/report, last fill date and days supply: both due 04/21/23 Per reconcile dispense, last fill date and days supply: atorvastatin filled 01/21/23 for 90 days, lisinopril filled 04/16/23 for 90 days Per call to pharmacy, last picked up date and days supply: n/a Any need for new prescription (I.e. out of refills on most recent prescription) YES/NO/Active: Yes (atorvastatin rx ) Outcome of review/outreach: (choose outcome source and status) - Filled before Next fill date per reconcile dispense (lisinopril) Sent refill request to PCP in separate encounter for new rx for atorvastatin Chela Tierney documented in this encounter [facility] 02-06-2023 Miscellaneous Notes February 06, 2023 PID: [id number] Kenny Newberry [address] [place] [address] Dear Ms. Newberry, We are pleased to inform you that the results of your recent breast imaging exam on 02/05/2023 are normal. Early detection of cancer is very important. We also understand recommendations regarding breast cancer screening are controversial. Please discuss with your primary care provider which strategy is best for you and whether a mammogram is right for you. Your imaging studies and report will be kept on file at [facility] as part of your permanent medical record and are available for your continuing care. Thank you for allowing us to help in meeting your health care needs. Sincerely, Dr. Rainey Interpreting Radiologist [facility] (Normal over 40) documented in this encounter [facility] 02-05-2023 Note HNO ID: [id number] Author: Nona Scott, Mammo Tech Service: ? Author Type: Fire Prevention Research Engineer Type: Progress Notes Filed: 02/05/2023 10:21 AM Note Text: Radiology Service Progress Note PATIENT NAME: Kenny Newberry DATE OF SERVICE: February 05, 2023 TIME: 10:02 AM PATIENT IDENTITY VERIFICATION COMPLETED USING TWO (2) IDENTIFIERS: Name and Date of confirmed by patient verbally. FALL SCREENING: Has the patient had 2 falls in the last year or 1 fall with injury or currently using an Ambulatory Assistive Device (Walker, Cane, Wheelchair, Crutches, etc.)? No PATIENT GENDER DATA: Female. status: : No status: NO. PATIENT RELEVANT IMPLANT DATA REVIEWED: Not Applicable RADIOLOGY DEPARTMENT: Mammography PERIPHERAL IV DATA: Not applicable SIGNED BY: Anna WongSocial Project February 05, 2023 10:02 AM [facility] 02-05-2023 History of Present illness Narrative Radiology Service Progress Note PATIENT NAME: Kenny Newberry DATE OF SERVICE: February 05, 2023 TIME: 10:02 AM PATIENT IDENTITY VERIFICATION COMPLETED USING TWO (2) IDENTIFIERS: Name and Date of confirmed by patient verbally. FALL SCREENING: Has the patient had 2 falls in the last year or 1 fall with injury or currently using an Ambulatory Assistive Device (Walker, Cane, Wheelchair, Crutches, etc.)? No PATIENT GENDER DATA: Female. status: : No status: NO. PATIENT RELEVANT IMPLANT DATA REVIEWED: Not Applicable RADIOLOGY DEPARTMENT: Mammography PERIPHERAL IV DATA: Not applicable SIGNED BY: Anna WongGetJar Glendy February 05, 2023 10:02 AM documented in this encounter [facility] 01-22-2023 Note HNO ID: [id number] Author: Osman Villa MD Service: ? Author Type: Physician Type: Progress Notes Filed: 01/22/2023 11:08 AM Note Text: Patient presents with: Follow Up HPI: Patient presents today for office visit for 3 month follow up. HTN: Patient is compliant with meds Yes Monitors bp at home: Yes. Stable. Denies side effects: Yes. Chest pain: No. Dyspnea: No. Edema: No. Palpitations: No. Syncope: No. Headache: No. Dizziness: No. DM: Reports overall feeling well. Medication side effects: No. Home sugar check frequency/results: twice a day. Hypoglycemic spells: No. Watching diet: Yes. Unexpected weight loss: No. Polyuria, polydipsia: No. Vision Changes: No. Due for annual in a couple weeks. Followed by [employer] [facility]. Foot lesions or numbness or pain: No. HYPERLIPIDEMIA: Patient is taking medications: Yes. Patient is watching diet: Yes. Patient denies myalgias: Yes. Patient denies gi upset: Yes Follows with Dr. Mcclure. Component Latest Ref Rng AND Units 01/18/2023 Glucose 74 - 99 mg/dL 148 (H) BUN 7 - 21 mg/dL 18 Creatinine 0.58 - 0.96 mg/dL 0.95 Sodium 136 - 144 mmol/L 142 Potassium 3.7 - 5.1 mmol/L 4.3 Chloride 97 - 105 mmol/L 103 CO2 22 - 30 mmol/L 28 Anion Gap 9 - 18 mmol/L 11 Calcium 8.5 - 10.2 mg/dL 10.4 (H) eGFR >=60 mL/min/1.73mA? 61 Hemoglobin A1C 4.3 - 5.6 % 7.0 (H) Estimated Average Glucose mg/dL 154 Her repeat normalized calcium in the last year has been ok. No bleeding or bruising issues currently. MEDICATIONS: Current Outpatient Medications Medication Sig ONETOUCH DELICA PLUS LANCET 33 gauge USE TO CHECK GLUCOSE TWICE DAILY apixaban (ELIQUIS) 5 mg tab(s) Take 1 tablet by mouth twice daily. insulin detemir U-100 (LEVEMIR FLEXPEN) 100 unit/mL (3 mL) injection pen Inject 9 Units subcutaneously daily at bedtime. blood sugar diagnostic (BLOOD GLUCOSE TEST) test strip Test blood sugar(s) 2 times daily. Dx: Type 2 DM - Controlled E11.9 Insulin: Yes Insulin [place], Disposable, (BD ULTRA-FINE HAO PEN NEEDLE) 32 gauge x 32 Use one needle for each dose. 1/day. SITagliptin phosphate (JANUVIA) 100 mg tablet Take 1 tablet by mouth once daily. nateglinide (STARLIX) 60 mg tablet Take 1 tablet by mouth three times daily before meals. atorvastatin (LIPITOR) 40 mg tablet Take 1 tablet by mouth daily at bedtime. For cholesterol. lisinopril (ZESTRIL, PRINIVIL) 20 mg tablet Take 1 tablet by mouth once daily. hydroCHLOROthiazide (HYDRODIURIL, ESIDRIX) 12.5 mg capsule Take 1 capsule by mouth once daily. famotidine (PEPCID) 20 mg tablet Take 1 tablet by mouth twice daily. estradiol (ESTRACE) 0.01 % (0.1 mg/gram) vaginal cream Apply pea-sized amount to perineum and 1 applicator vaginally Mon, Wed, Fri for atrophic vaginitis. Ciclopirox (PENLAC) 8 % solution Apply to affected area daily at bedtime. TO AFFECTED AREA. Magnesium 250 mg tab Take 250 mg by mouth once daily. BIOTIN ORAL Take 1 tablet by mouth once daily. acetaminophen 650 mg CR tablet Take 650 mg by mouth every 8 hours as needed. hyoscyamine sublingual (LEVSIN/SL) 0.125 mg Dissolve 1 tablet under the tongue as directed. Lancing Device misc Tests 2 times daily COMPOUNDED PRESCRIPTION Patient requires testing bid. Has been drastically adjusting diet up and down and we are seeing fluctuating blood sugars. Depending on results, we may be changing therapies. Blood-Glucose Meter monitoring kit Glucose Meter of Choice - Kit - Dx: Type 2 DM - Controlled E11.9 Use to test blood glucose twice daily. Vitamin C-Vitamin E cap Take by mouth twice daily. CENTRUM SILVER ORAL TAB Take one(1) tablet daily. No current facility-administered medications for this visit. ALLERGIES: ALLERGIES Allergen Reactions Actos [Pioglitazone] Contraindication-Medical Surgical Hx bladder cancer Metformin GI Upset Diarrhea Prilosec [Omeprazol* GI Upset PAST MEDICAL HISTORY Diagnosis Date Back pain, sacroiliac Benign hypertensive heart disease without heart failure Benign neoplasm of colon Chronic UTI Cystocele, midline Diverticulosis of colon (without mention of hemorrhage) Hematuria Hematuria 2008 Hypertension Kidney stone 2010 Lung nodule Malignant neoplasm of bladder, part unspecified 2000 Bladder cancer TRANSITIONAL Cell, Dr. Mcclure Pyelonephritis 2010 Type II or unspecified type diabetes mellitus without mention of complication, not stated as uncontrolled Urethral caruncle Uterovaginal prolapse, incomplete PAST SURGICAL HISTORY Procedure Laterality Date COLONOSCOPY FLX DX W/COLLJ SPEC WHEN PFRMD 02/07/2005 Colonoscopy COLONOSCOPY FLX DX W/COLLJ SPEC WHEN PFRMD 06/23/2008 Colonoscopy COLONOSCOPY FLX DX W/COLLJ SPEC WHEN PFRMD 10/24/2013 Colonoscopy COLONOSCOPY FLX DX W/COLLJ SPEC WHEN PFRMD 09/09/2018 Colonoscopy COLPOSCOPY CERVIX UPPER/ADJACENT VAGINA 1991 Colposcopy- cervicitis only DILATION AND CURETTAGE DXAND/T (more content not included)... [facility] 01-22-2023 History of Present illness Narrative Patient presents with: Follow Up HPI: Patient presents today for office visit for 3 month follow up. HTN: Patient is compliant with meds Yes Monitors bp at home: Yes. Stable. Denies side effects: Yes. Chest pain: No. Dyspnea: No. Edema: No. Palpitations: No. Syncope: No. Headache: No. Dizziness: No. DM: Reports overall feeling well. Medication side effects: No. Home sugar check frequency/results: twice a day. Hypoglycemic spells: No. Watching diet: Yes. Unexpected weight loss: No. Polyuria, polydipsia: No. Vision Changes: No. Due for annual in a couple weeks. Followed by [facility]. Foot lesions or numbness or pain: No. HYPERLIPIDEMIA: Patient is taking medications: Yes. Patient is watching diet: Yes. Patient denies myalgias: Yes. Patient denies gi upset: Yes Follows with Dr. Mcclure. Component Latest Ref Rng & Units 01/18/2023 Glucose 74 - 99 mg/dL 148 (H) BUN 7 - 21 mg/dL 18 Creatinine 0.58 - 0.96 mg/dL 0.95 Sodium 136 - 144 mmol/L 142 Potassium 3.7 - 5.1 mmol/L 4.3 Chloride 97 - 105 mmol/L 103 CO2 22 - 30 mmol/L 28 Anion Gap 9 - 18 mmol/L 11 Calcium 8.5 - 10.2 mg/dL 10.4 (H) eGFR >=60 mL/min/1.73m 61 Hemoglobin A1C 4.3 - 5.6 % 7.0 (H) Estimated Average Glucose mg/dL 154 Her repeat normalized calcium in the last year has been ok. No bleeding or bruising issues currently. MEDICATIONS: Current Outpatient Medications Medication Sig ONETOUCH DELICA PLUS LANCET 33 gauge USE TO CHECK GLUCOSE TWICE DAILY apixaban (ELIQUIS) 5 mg tab(s) Take 1 tablet by mouth twice daily. insulin detemir U-100 (LEVEMIR FLEXPEN) 100 unit/mL (3 mL) injection pen Inject 9 Units subcutaneously daily at bedtime. blood sugar diagnostic (BLOOD GLUCOSE TEST) test strip Test blood sugar(s) 2 times daily. Dx: Type 2 DM - Controlled E11.9 Insulin: Yes Insulin [place], Disposable, (BD ULTRA-FINE HAO PEN NEEDLE) 32 gauge x Use one needle for each dose. 1/day. SITagliptin phosphate (JANUVIA) 100 mg tablet Take 1 tablet by mouth once daily. nateglinide (STARLIX) 60 mg tablet Take 1 tablet by mouth three times daily before meals. atorvastatin (LIPITOR) 40 mg tablet Take 1 tablet by mouth daily at bedtime. For cholesterol. lisinopril (ZESTRIL, PRINIVIL) 20 mg tablet Take 1 tablet by mouth once daily. hydroCHLOROthiazide (HYDRODIURIL, ESIDRIX) 12.5 mg capsule Take 1 capsule by mouth once daily. famotidine (PEPCID) 20 mg tablet Take 1 tablet by mouth twice daily. estradiol (ESTRACE) 0.01 % (0.1 mg/gram) vaginal cream Apply pea-sized amount to perineum and 1 applicator vaginally Mon, Sun, Sun for atrophic vaginitis. Ciclopirox (PENLAC) 8 % solution Apply to affected area daily at bedtime. TO AFFECTED AREA. Magnesium 250 mg tab Take 250 mg by mouth once daily. BIOTIN ORAL Take 1 tablet by mouth once daily. acetaminophen 650 mg CR tablet Take 650 mg by mouth every 8 hours as needed. hyoscyamine sublingual (LEVSIN/SL) 0.125 mg Dissolve 1 tablet under the tongue as directed. Lancing Device misc Tests 2 times daily COMPOUNDED PRESCRIPTION Patient requires testing bid. Has been drastically adjusting diet up and down and we are seeing fluctuating blood sugars. Depending on results, we may be changing therapies. Blood-Glucose Meter monitoring kit Glucose Meter of Choice - Kit - Dx: Type 2 DM - Controlled E11.9 Use to test blood glucose twice daily. Vitamin C-Vitamin E cap Take by mouth twice daily. CENTRUM SILVER ORAL TAB Take one(1) tablet daily. No current facility-administered medications for this visit. ALLERGIES: ALLERGIES Allergen Reactions Actos [Pioglitazone] Contraindication-Medical Surgical Hx bladder cancer Metformin GI Upset Diarrhea Prilosec [Omeprazol* GI Upset PAST MEDICAL HISTORY Diagnosis Date Back pain, sacroiliac Benign hypertensive heart disease without heart failure Benign neoplasm of colon Chronic UTI Cystocele, midline Diverticulosis of colon (without mention of hemorrhage) Hematuria Hematuria 2008 Hypertension Kidney stone 2010 Lung nodule Malignant neoplasm of bladder, part unspecified 2000 Bladder cancer TRANSITIONAL Cell, Dr. Mcclure Pyelonephritis 2010 Type II or unspecified type diabetes mellitus without mention of complication, not stated as uncontrolled Urethral caruncle Uterovaginal prolapse, incomplete PAST SURGICAL HISTORY Procedure Laterality Date COLONOSCOPY FLX DX W/COLLJ SPEC WHEN PFRMD 02/07/2005 Colonoscopy COLONOSCOPY FLX DX W/COLLJ SPEC WHEN PFRMD 06/23/2008 Colonoscopy COLONOSCOPY FLX DX W/COLLJ SPEC WHEN PFRMD 10/24/2013 Colonoscopy COLONOSCOPY FLX DX W/COLLJ SPEC WHEN PFRMD 09/09/2018 Colonoscopy COLPOSCOPY CERVIX UPPER/ADJACENT VAGINA 1991 Colposcopy- cervicitis only DILATION & CURETTAGE DX&/THER NONOBSTETRIC Dilation & curettage EGD 01/10/2021 ESOPHAGOGASTRODUODENOSCOPY TRANSORAL DIAGNOSTIC 08/22/2012 EGD ESOPHAGOGASTRODUODENOSCOPY TRANSORAL DIAGNOSTIC 08/20/2017 EGD LITHOTRIPSY PROC UNILATERAL 2011 kidney stone PAST SURGICAL HISTORY OF BLEPHAROPLASTY PAST SURGICAL HISTORY OF CYSTOSCOPY X 3 PAST SURGICAL HISTORY OF BPS PAST SURGICAL HISTORY OF 2007 cystoscopy TONSILLECTOMY PRIMARY/SECONDARY <AGE 14 Tonsillectomy FAMILY HISTORY Problem Relation Age of Onset Heart Mother other (colitis) Mother other (ra) Mother other (reflux problems) Father 02/07 other (prostate surgery benign) Father Lung Cancer Sister other (pancreatitis) Other Social History Tobacco Use Smoking status: Former Years: 15 Types: Cigarettes Quit date: 08/03/1982 Years since quittin.4 Smokeless tobacco: Never Vaping Use Vaping Use: Never used Substance Use Topics Alcohol use: Yes Comment: a glass of wine with dinner every night Drug use: No Reviewed current medications, allergies, past medical history, surgical history, family history and social history today. REVIEW OF SYSTEMS All other reviewed and negative other than HPI. HEALTH MAINTENANCE: Reviewed health maintenance issues today and recommended the following in detail. Hepatitis B Vaccine(1 of 3 - Risk 3-dose series) Never done Diabetic Foot Exam due on 12/13/2022 Dilated Retinal Exam sees Dr Maier next month. VITALS: BP 138/80 Pulse 69 Ht 154.9 cm (5' 1 ) Wt 59.4 kg (131 lb) SpO2 99% BMI 24.75 kg/m Last 4 Encounter Wt Readings: Date: Wt: 10/04/2022 61.5 kg (135 lb 9.6 oz) 03/17/2022 62.6 kg (138 lb) 03/01/2022 62.1 kg (137 lb) 12/23/2021 61.1 kg (134 lb 12.8 oz) PHYSICAL EXAMINATION: General appearance: Well appearing, alert, in no acute distress, well-hydrated, well nourished. Skin: Skin color, texture, turgor normal, no suspicious rashes or lesions Head: Normocephalic, no masses, lesions, tenderness or abnormalities Lungs: Lungs clear to auscultation. No wheezing, rhonchi, rales Heart: RRR without murmur, gallop, or rubs. No ectopy Abdomen: Normal abdominal exam, Abdomen soft, non-tender. Bowel sounds normal. No masses, organomegaly Extremities: No deformities, edema, skin discoloration, clubbing or cyanosis. Good capillary refill. Musculoskeletal: No joint swelling, deformity, or tenderness Feet:Shoes and socks removed, No deformities, ulcers, calluses, normal distal pulses, and sensitive to monofilament bilaterally ASSESSMENT/PLAN: 1. Essential hypertension, benign - ICD9: 401.1, ICD10: I10 (primary diagnosis) - Controlled - Continue current medications 2. Mixed hyperlipidemia - ICD9: 272.2, ICD10: E78.2 - Controlled - Continue current medications - Counseled on healthy diet and regular exercise 3. Gastroesophageal reflux disease with esophagitis without hemorrhage - ICD9: 530.81, 530.10, ICD10: K21.00 - stable. 4. Chronic kidney disease, stage 3a (HCC) - ICD9: 585.3, ICD10: N18.31 - eGFR: 61 Stable 5. Chronic deep vein thrombosis (DVT) of proximal vein of lower extremity, unspecified laterality (HCC) - ICD9: 453.51, ICD10: I82.5Y9 - stable. 6. History of bladder cancer - ICD9: V10.51, ICD10: Z85.51 - per urology. 7. Type 2 diabetes mellitus with microalbuminuria, with long-term current use of insulin (HCC) - ICD9: 250.40, 791.0, V58.67, ICD10: E11.29, R80.9, Z79.4 - Controlled - Continue current medications - CBC + DIFF - COMP METABOLIC PANEL - LIPID PANEL BASIC - HGB A1C - ALBUMIN/CREAT RATIO RND UR Osman Villa MD documented in this encounter [facility] 01-18-2023 Note Patient Outreach ( POHE) ROHITHKENNY Lala ([id number]) 1940 F Date Time Provider Department 01/18/23 [facility] During your visit today, we recorded the following information about you: Santy Cuadra-TRowan 01/18/2023 9:01 AM Signed Kenny Lala Rohith is identified through a medication adherence outreach initiative based on pharmacy claims data from [employer] (insurer) for ANGELA medication(s) and Statin medication(s). Patient is reviewed 01/18/23 due to medication adherence concerns with the following medications (name, strength, sig): Lisinopril 20 mg 1 tablet every day and Atorvastatin 40 mg 1 tablet every day . Per data/report, last fill date and days supply: Due 01/29/2023 Per reconcile dispense, last fill date and days supply: 10/31/2022 for 90 days Per call to pharmacy, last picked up date and days supply: NA Contacted patient: Emma Outcome of review/outreach: (choose outcome source and status) - MyChart reminder sent to patient Rowan Mdaera [facility] Allergies As of Date: 01/18/2023 Noted Allergy Reaction ACTOS (PIOGLITAZONE) 03/24/2019 15 - Contraindication-Medical [place]* Comments: Hx bladder cancer METFORMIN 10/12/2017 8 - GI Upset Comments: Diarrhea PRILOSEC (OMEPRAZOLE MAGNESIUM) 09/02/2012 8 - GI Upset Date Reviewed: 10/04/2022 Reviewed by: Alysia Padilla - Fully Assessed Reason for Visit: Allied Health Visit [5] Cmt: Medication Adherence Outreach Prescriptions as of 01/18/2023 - ONETOUCH DELICA PLUS LANCET 33 gauge USE TO CHECK GLUCOSE TWICE DAILY - apixaban (ELIQUIS) 5 mg tab(s) Take 1 tablet by mouth twice daily. - insulin detemir U-100 (LEVEMIR FLEXPEN) 100 unit/mL (3 mL) injection pen Inject 9 Units subcutaneously daily at bedtime. - blood sugar diagnostic (BLOOD GLUCOSE TEST) test strip Test blood sugar(s) 2 times daily. Dx: Type 2 DM - Controlled E11.9 Insulin: Yes - Insulin [place], Disposable, (BD ULTRA-FINE HAO PEN NEEDLE) 32 gauge x Use one needle for each dose. 1/day. - SITagliptin phosphate (JANUVIA) 100 mg tablet Take 1 tablet by mouth once daily. - nateglinide (STARLIX) 60 mg tablet Take 1 tablet by mouth three times daily before meals. - atorvastatin (LIPITOR) 40 mg tablet Take 1 tablet by mouth daily at bedtime. For cholesterol. - lisinopril (ZESTRIL, PRINIVIL) 20 mg tablet Take 1 tablet by mouth once daily. - hydroCHLOROthiazide (HYDRODIURIL, ESIDRIX) 12.5 mg capsule Take 1 capsule by mouth once daily. - famotidine (PEPCID) 20 mg tablet Take 1 tablet by mouth twice daily. - estradiol (ESTRACE) 0.01 % (0.1 mg/gram) vaginal cream Apply pea-sized amount to perineum and 1 applicator vaginally Sun, Sun, Sun for atrophic vaginitis. - Ciclopirox (PENLAC) 8 % solution Apply to affected area daily at bedtime. TO AFFECTED AREA. - Magnesium 250 mg tab Take 250 mg by mouth once daily. - BIOTIN ORAL Take 1 tablet by mouth once daily. - acetaminophen 650 mg CR tablet Take 650 mg by mouth every 8 hours as needed. - hyoscyamine sublingual (LEVSIN/SL) 0.125 mg Dissolve 1 tablet under the tongue as directed. - Lancing Device misc Tests 2 times daily - COMPOUNDED PRESCRIPTION Patient requires testing bid. Has been drastically adjusting diet up and down and we are seeing fluctuating blood sugars. Depending on results, we may be changing therapies. - Blood-Glucose Meter monitoring kit Glucose Meter of Choice - Kit - Dx: Type 2 DM - Controlled E11.9 Use to test blood glucose twice daily. - Vitamin C-Vitamin E cap Take by mouth twice daily. - CENTRUM SILVER ORAL TAB Take one(1) tablet daily. Problem List As Of Date 01/18/2023 Noted Resolved Type 2 diabetes mellitus without complication (*11/01/2004 06/29/2016 BENIGN HYPERTENSION [I10] 11/01/2004 Mixed hyperlipidemia [E78.2] 01/24/2005 BENIGN NEOPLASM LG BOWEL [D12.6] 02/07/2005 11/27/2006 DIVERTICULOSIS OF COLON W/O BLEED [K57.30] 02/07/2005 11/27/2006 BENIGN NEOPLASM LG BOWEL [D12.6] 11/27/2006 History of bladder cancer [Z85.51] 05/24/2007 Unspecified disorder of bladder [N32.9] 11/22/2007 06/29/2016 Disorder of bone and cartilage, unspecified [M8*12/06/2007 06/29/2016 Postmenopausal atrophic vaginitis [N95.2] 12/21/2008 06/29/2016 Cystocele, Midline [N81.11] 12/21/2008 Leiomyoma of uterus, unspecified [D25.9] 12/21/2008 06/29/2016 Gross hematuria [R31.0] 12/23/2008 06/29/2016 Lower urinary tract infectious disease [N39.0] 06/25/2009 06/29/2016 Hepatic cyst [K76.89] 07/27/2009 Other chronic cystitis [N30.20] 12/17/2009 06/29/2016 Uterovaginal prolapse, incomplete [N81.2] 12/24/2009 Osteopenia [M85.80] 01/25/2011 Urethral caruncle [N36.2] 08/01/2011 06/29/2016 Back pain, sacroiliac [M53.3] 06/29/2016 Irritated//Inflamed Seborrheic Keratosis [L82.0]08/17/2011 12/30/2015 Viral wart component of irritated gary ker [B07.*08/17/2011 06/29/2016 Melanoc (more content not included)... [facility] 01-18-2023 Note HNO ID: [id number] Author: Santy Cuadra-TRowan Service: ? Author Type: ? Type: Progress Notes Filed: 01/18/2023 9:01 AM Note Text: Kenny Newberry is identified through a medication adherence outreach initiative based on pharmacy claims data from [employer] (insurer) for ANGELA medication(s) and Statin medication(s). Patient is reviewed 01/18/23 due to medication adherence concerns with the following medications (name, strength, sig): Lisinopril 20 mg 1 tablet every day and Atorvastatin 40 mg 1 tablet every day . Per data/report, last fill date and days supply: Due 01/29/2023 Per reconcile dispense, last fill date and days supply: 10/31/2022 for 90 days Per call to pharmacy, last picked up date and days supply: NA Contacted patient: Emma Outcome of review/outreach: (choose outcome source and status) - [place] Audio reminder sent to patient Rowan Madera Pharm-T [facility] 01-18-2023 History of Present illness Narrative Kenny Newberry is identified through a medication adherence outreach initiative based on pharmacy claims data from [employer] (insurer) for ANGELA medication(s) and Statin medication(s). Patient is reviewed 01/18/23 due to medication adherence concerns with the following medications (name, strength, sig): Lisinopril 20 mg 1 tablet every day and Atorvastatin 40 mg 1 tablet every day . Per data/report, last fill date and days supply: Due 01/29/2023 Per reconcile dispense, last fill date and days supply: 10/31/2022 for 90 days Per call to pharmacy, last picked up date and days supply: NA Contacted patient: Emma Outcome of review/outreach: (choose outcome source and status) - [place] Audio reminder sent to patient Rowan Madera Pharm[facility]T documented in this encounter [facility] 11-28-2022 Miscellaneous Notes Patient's notified and verbalized understanding. Anabelle Rodriguez MA Sugars look good. Keep up the good work Patient brought in sugar numbers for 2 weeks since she went on 9 units of Levemir. On providers desk for review. Patient also requesting new RX for One Touch Delica Plus Lancets (100 count) Please review and advise. documented in this encounter [facility] 11-25-2022 Miscellaneous Notes Patient has been identified by name and date of : Yes Last office visit in this department: 10/04/2022 RX INSTRUCTIONS: Patient aware RX will be sent to pharmacy. No need to notify patient. Patient phones requesting refills as follows: Requested Prescriptions Pending Prescriptions Disp Refills apixaban (ELIQUIS) 5 mg tab(s) 60 tablet 5 Sig: Take 1 tablet by mouth twice daily. Please review and advise. Rachael Sharp documented in this encounter [facility] 11-13-2022 Miscellaneous Notes Spoke with patient. Given message from provider's office. Patient verbalizes understanding. Sarina Bobby RN Call to pt, spoke with . LM to have pt call back to receive update from Triage Nurse. Rosalba Pierre Ma Most recently they seem to be decreasing. Increase levemir to 9 units daily and send sugars in two weeks Patient drops off blood sugar log. Placed on provider's desk Sandy Bray Ma documented in this encounter [facility] 10-26-2022 Miscellaneous Notes I sent patient a mychart message explaining wthe test strips were sent and sugars and Levemir increased. Rolanda Escobedo Let her know script for test strips were sent for 2 a day. I reviewed her sugars. Increase her levemir to 8 units a day and send list on Sunday. Can do my chart if able. documented in this encounter [facility] 10-25-2022 Miscellaneous Notes Patient drops of glucose readings for review. documented in this encounter [facility] 10-04-2022 Note HNO ID: [id number] Author: Irma Hahn RT(R) Service: ? Author Type: Fire Prevention Research Engineer Type: Progress Notes Filed: 10/04/2022 12:17 PM Note Text: Radiology Service Progress Note PATIENT NAME: Kenny Newberry DATE OF SERVICE: October 04, 2022 TIME: 12:05 PM PATIENT IDENTITY VERIFICATION COMPLETED USING TWO (2) IDENTIFIERS: Name and Date of confirmed by patient verbally. FALL SCREENING: Has the patient had 2 falls in the last year or 1 fall with injury or currently using an Ambulatory Assistive Device (Walker, Cane, Wheelchair, Crutches, etc.)? No PATIENT GENDER DATA: Female. status: : No status: NO. PATIENT RELEVANT IMPLANT DATA REVIEWED: Yes RADIOLOGY DEPARTMENT: General X-ray: Exam(s) Completed: Pelvis X-Ray: Pelvis with Hip Left PERIPHERAL IV DATA: Not applicable SIGNED BY: RT Mahi(R) October 04, 2022 12:05 PM [facility] 10-04-2022 Note HNO ID: [id number] Author: Osman Villa MD Service: ? Author Type: Physician Type: Progress Notes Filed: 10/04/2022 1:56 PM Note Text: Patient presents with: 6 Month Exam HPI: Patient presents today for office visit for follow up. DM: Reports overall feeling well. Medication side effects: No. Home sugar check frequency/results: Not often Hypoglycemic spells: No. Watching diet: not strictly Unexpected weight loss: No. Polyuria, polydipsia: No. Vision Changes: No. Foot lesions or numbness or pain: No. She does not want to add anything expensive. Discussed options of orals and costs. Discussed that we might be able to eliminate one of the other meds. HTN: Patient is compliant with meds Yes Monitors bp at home: No Denies side effects: Yes. Chest pain: No. Dyspnea: No. Edema: No. Palpitations: No. Syncope: No. Headache: No. Dizziness: No. Discussed monitoring bp at home. Will follow. HLD: no myalgias. DVT's: on chronic anticoagulation. Has seen hematology. Is scheduled for a cystoscopy. They will evaluate for hematuria. No current gross hematuria. No flank pain. Culture was ok. Has noted pain hear her left buttock over the last few months. Woke up with it. Is uncomfortable to sit on it. Hurts going up stairs. No trauma. No numbness or weakness. Is not as bad now. Using tylenol, 2000 daily. No longer seeing cardiology, Heme or PULM. Component Latest Ref Rng AND Units 09/29/2022 WBC 3.70 - 11.00 k/uL 7.44 RBC 3.90 - 5.20 m/uL 4.54 Hemoglobin 11.5 - 15.5 g/dL 13.4 Hematocrit 36.0 - 46.0 % 39.8 MCV 80.0 - 100.0 fL 87.7 MCH 26.0 - 34.0 pg 29.5 MCHC 30.5 - 36.0 g/dL 33.7 RDW-CV 11.5 - 15.0 % 13.1 Platelet Count 150 - 400 k/uL 352 MPV 9.0 - 12.7 fL 9.9 Neut% % 62.5 Abs Neut (ANC) 1.45 - 7.50 k/uL 4.65 Lymph% % 27.0 Abs Lymph 1.00 - 4.00 k/uL 2.01 Gibson% % 8.2 Abs Gibson <0.87 k/uL 0.61 Eosin% % 1.5 Abs Eosin <0.46 k/uL 0.11 Baso% % 0.4 Abs Baso <0.11 k/uL 0.03 Immature Gran % % 0.4 IMMATURE GRANS (ABS) <0.10 k/uL 0.03 NRBC /100 WBC 0.0 Absolute nRBC <0.01 k/uL <0.01 DTYPE Auto Protein, Total 6.3 - 8.0 g/dL 7.1 Albumin 3.9 - 4.9 g/dL 4.0 Calcium 8.5 - 10.2 mg/dL 10.4 (H) Bilirubin, Total 0.2 - 1.3 mg/dL 0.3 Alkaline Phosphatase 34 - 123 U/L 64 AST 13 - 35 U/L 21 ALT 7 - 38 U/L 27 Glucose 74 - 99 mg/dL 180 (H) BUN 7 - 21 mg/dL 21 Creatinine 0.58 - 0.96 mg/dL 0.94 Sodium 136 - 144 mmol/L 140 Potassium 3.7 - 5.1 mmol/L 4.1 Chloride 97 - 105 mmol/L 101 CO2 22 - 30 mmol/L 27 Anion Gap 9 - 18 mmol/L 12 eGFR >=60 mL/min/1.73mA? 62 Cholesterol, Total <200 mg/dL 148 Triglyceride <150 mg/dL 131 HDL Cholesterol >39 mg/dL 46 Non HDL Cholesterol <130 mg/dL 102 Fasting Time hrs 14 VLDL Cholesterol <30 mg/dL 26 TC:HDL Ratio <5.10 3.22 LDL Cholesterol <100 mg/dL 76 LDL:HDL Ratio <2.54 1.65 Hemoglobin A1C 4.3 - 5.6 % 9.2 (H) Estimated Average Glucose mg/dL 217 Her calcium has been broken down multiple times and been ok. MEDICATIONS: Current Outpatient Medications Medication Sig apixaban (ELIQUIS) 5 mg tab(s) Take 1 tablet by mouth twice daily. SITagliptin phosphate (JANUVIA) 100 mg tablet Take 1 tablet by mouth once daily. blood sugar diagnostic (BLOOD GLUCOSE TEST) test strip Test blood sugar(s) 1 times daily. Dx: Type 2 DM - Controlled E11.9 Insulin: No nateglinide (STARLIX) 60 mg tablet Take 1 tablet by mouth three times daily before meals. atorvastatin (LIPITOR) 40 mg tablet Take 1 tablet by mouth daily at bedtime. For cholesterol. lisinopril (ZESTRIL, PRINIVIL) 20 mg tablet Take 1 tablet by mouth once daily. hydroCHLOROthiazide (HYDRODIURIL, ESIDRIX) 12.5 mg capsule Take 1 capsule by mouth once daily. famotidine (PEPCID) 20 mg tablet Take 1 tablet by mouth twice daily. estradiol (ESTRACE) 0.01 % (0.1 mg/gram) vaginal cream Apply pea-sized amount to perineum and 1 applicator vaginally Mon, Wed, Fri for atrophic vaginitis. Ciclopirox (PENLAC) 8 % solution Apply to affected area daily at bedtime. TO AFFECTED AREA. DYNAGENT SOFTWARE SL PLUS LANCET 33 gauge USE TO CHECK GLUCOSE TWICE DAILY Magnesium 250 mg tab Take 250 mg by mouth once daily. BIOTIN ORAL Take 1 tablet by mouth once daily. acetaminophen 650 mg CR tablet Take 650 mg by mouth every 8 hours as needed. hyoscyamine sublingual (LEVSIN/SL) 0.125 mg Dissolve 1 tablet under the tongue as directed. Lancing Device misc Tests 2 times daily COMPOUNDED PRESCRIPTION Patient requires testing bid. Has been drastically adjusting diet up and down and we are seeing fluctuating blood sugars. Depending on results, we may be changing therapies. Blood-Glucose Meter monitoring kit Glucose Meter of Choice - Kit - Dx: Type 2 DM - Controlled E11.9 Use to test blood glucose twice daily. Vitamin C-Vitamin E cap Take by mouth twice daily. CENTRUM SILVER ORAL TAB Take one(1) tablet daily. No current facility-administered medications fo (more content not included)... [facility] 10-04-2022 History of Present illness Narrative Patient presents with: 6 Month Exam HPI: Patient presents today for office visit for follow up. DM: Reports overall feeling well. Medication side effects: No. Home sugar check frequency/results: Not often Hypoglycemic spells: No. Watching diet: not strictly Unexpected weight loss: No. Polyuria, polydipsia: No. Vision Changes: No. Foot lesions or numbness or pain: No. She does not want to add anything expensive. Discussed options of orals and costs. Discussed that we might be able to eliminate one of the other meds. HTN: Patient is compliant with meds Yes Monitors bp at home: No Denies side effects: Yes. Chest pain: No. Dyspnea: No. Edema: No. Palpitations: No. Syncope: No. Headache: No. Dizziness: No. Discussed monitoring bp at home. Will follow. HLD: no myalgias. DVT's: on chronic anticoagulation. Has seen hematology. Is scheduled for a cystoscopy. They will evaluate for hematuria. No current gross hematuria. No flank pain. Culture was ok. Has noted pain hear her left buttock over the last few months. Woke up with it. Is uncomfortable to sit on it. Hurts going up stairs. No trauma. No numbness or weakness. Is not as bad now. Using tylenol, 2000 daily. No longer seeing cardiology, Heme or PULM. Component Latest Ref Rng & Units 09/29/2022 WBC 3.70 - 11.00 k/uL 7.44 RBC 3.90 - 5.20 m/uL 4.54 Hemoglobin 11.5 - 15.5 g/dL 13.4 Hematocrit 36.0 - 46.0 % 39.8 MCV 80.0 - 100.0 fL 87.7 MCH 26.0 - 34.0 pg 29.5 MCHC 30.5 - 36.0 g/dL 33.7 RDW-CV 11.5 - 15.0 % 13.1 Platelet Count 150 - 400 k/uL 352 MPV 9.0 - 12.7 fL 9.9 Neut% % 62.5 Abs Neut (ANC) 1.45 - 7.50 k/uL 4.65 Lymph% % 27.0 Abs Lymph 1.00 - 4.00 k/uL 2.01 Gibson% % 8.2 Abs Gibson <0.87 k/uL 0.61 Eosin% % 1.5 Abs Eosin <0.46 k/uL 0.11 Baso% % 0.4 Abs Baso <0.11 k/uL 0.03 Immature Gran % % 0.4 IMMATURE GRANS (ABS) <0.10 k/uL 0.03 NRBC /100 WBC 0.0 Absolute nRBC <0.01 k/uL <0.01 DTYPE Auto Protein, Total 6.3 - 8.0 g/dL 7.1 Albumin 3.9 - 4.9 g/dL 4.0 Calcium 8.5 - 10.2 mg/dL 10.4 (H) Bilirubin, Total 0.2 - 1.3 mg/dL 0.3 Alkaline Phosphatase 34 - 123 U/L 64 AST 13 - 35 U/L 21 ALT 7 - 38 U/L 27 Glucose 74 - 99 mg/dL 180 (H) BUN 7 - 21 mg/dL 21 Creatinine 0.58 - 0.96 mg/dL 0.94 Sodium 136 - 144 mmol/L 140 Potassium 3.7 - 5.1 mmol/L 4.1 Chloride 97 - 105 mmol/L 101 CO2 22 - 30 mmol/L 27 Anion Gap 9 - 18 mmol/L 12 eGFR >=60 mL/min/1.73m 62 Cholesterol, Total <200 mg/dL 148 Triglyceride <150 mg/dL 131 HDL Cholesterol >39 mg/dL 46 Non HDL Cholesterol <130 mg/dL 102 Fasting Time hrs 14 VLDL Cholesterol <30 mg/dL 26 TC:HDL Ratio <5.10 3.22 LDL Cholesterol <100 mg/dL 76 LDL:HDL Ratio <2.54 1.65 Hemoglobin A1C 4.3 - 5.6 % 9.2 (H) Estimated Average Glucose mg/dL 217 Her calcium has been broken down multiple times and been ok. MEDICATIONS: Current Outpatient Medications Medication Sig apixaban (ELIQUIS) 5 mg tab(s) Take 1 tablet by mouth twice daily. SITagliptin phosphate (JANUVIA) 100 mg tablet Take 1 tablet by mouth once daily. blood sugar diagnostic (BLOOD GLUCOSE TEST) test strip Test blood sugar(s) 1 times daily. Dx: Type 2 DM - Controlled E11.9 Insulin: No nateglinide (STARLIX) 60 mg tablet Take 1 tablet by mouth three times daily before meals. atorvastatin (LIPITOR) 40 mg tablet Take 1 tablet by mouth daily at bedtime. For cholesterol. lisinopril (ZESTRIL, PRINIVIL) 20 mg tablet Take 1 tablet by mouth once daily. hydroCHLOROthiazide (HYDRODIURIL, ESIDRIX) 12.5 mg capsule Take 1 capsule by mouth once daily. famotidine (PEPCID) 20 mg tablet Take 1 tablet by mouth twice daily. estradiol (ESTRACE) 0.01 % (0.1 mg/gram) vaginal cream Apply pea-sized amount to perineum and 1 applicator vaginally Mon, Wed, Fri for atrophic vaginitis. Ciclopirox (PENLAC) 8 % solution Apply to affected area daily at bedtime. TO AFFECTED AREA. ONETOUCH DELICA PLUS LANCET 33 gauge USE TO CHECK GLUCOSE TWICE DAILY Magnesium 250 mg tab Take 250 mg by mouth once daily. BIOTIN ORAL Take 1 tablet by mouth once daily. acetaminophen 650 mg CR tablet Take 650 mg by mouth every 8 hours as needed. hyoscyamine sublingual (LEVSIN/SL) 0.125 mg Dissolve 1 tablet under the tongue as directed. Lancing Device misc Tests 2 times daily COMPOUNDED PRESCRIPTION Patient requires testing bid. Has been drastically adjusting diet up and down and we are seeing fluctuating blood sugars. Depending on results, we may be changing therapies. Blood-Glucose Meter monitoring kit Glucose Meter of Choice - Kit - Dx: Type 2 DM - Controlled E11.9 Use to test blood glucose twice daily. Vitamin C-Vitamin E cap Take by mouth twice daily. CENTRUM SILVER ORAL TAB Take one(1) tablet daily. No current facility-administered medications for this visit. ALLERGIES: ALLERGIES Allergen Reactions Actos [Pioglitazone] Contraindication-Medical Surgical Hx bladder cancer Metformin GI Upset Diarrhea Prilosec [Omeprazol* GI Upset PAST MEDICAL HISTORY Diagnosis Date Back pain, sacroiliac Benign hypertensive heart disease without heart failure Benign neoplasm of colon Chronic UTI Cystocele, midline Diverticulosis of colon (without mention of hemorrhage) Hematuria Hematuria 2008 Hypertension Kidney stone 2010 Lung nodule Malignant neoplasm of bladder, part unspecified 2000 Bladder cancer TRANSITIONAL Cell, Dr. Mcclure Pyelonephritis 2010 Type II or unspecified type diabetes mellitus without mention of complication, not stated as uncontrolled Urethral caruncle Uterovaginal prolapse, incomplete PAST SURGICAL HISTORY Procedure Laterality Date COLONOSCOPY FLX DX W/COLLJ SPEC WHEN PFRMD 02/07/2005 Colonoscopy COLONOSCOPY FLX DX W/COLLJ SPEC WHEN PFRMD 06/23/2008 Colonoscopy COLONOSCOPY FLX DX W/COLLJ SPEC WHEN PFRMD 10/24/2013 Colonoscopy COLONOSCOPY FLX DX W/COLLJ SPEC WHEN PFRMD 09/09/2018 Colonoscopy COLPOSCOPY CERVIX UPPER/ADJACENT VAGINA 1991 Colposcopy- cervicitis only DILATION & CURETTAGE DX&/THER NONOBSTETRIC Dilation & curettage EGD 01/10/2021 ESOPHAGOGASTRODUODENOSCOPY TRANSORAL DIAGNOSTIC 08/22/2012 EGD ESOPHAGOGASTRODUODENOSCOPY TRANSORAL DIAGNOSTIC 08/20/2017 EGD LITHOTRIPSY PROC UNILATERAL 2011 kidney stone PAST SURGICAL HISTORY OF BLEPHAROPLASTY PAST SURGICAL HISTORY OF CYSTOSCOPY X 3 PAST SURGICAL HISTORY OF BPS PAST SURGICAL HISTORY OF 2008 cystoscopy TONSILLECTOMY PRIMARY/SECONDARY <AGE 14 Tonsillectomy FAMILY HISTORY Problem Relation Age of Onset Heart Mother other (colitis) Mother other (ra) Mother other (reflux problems) Father 02/07 other (prostate surgery benign) Father Lung Cancer Sister other (pancreatitis) Other Social History Tobacco Use Smoking status: Former Years: 15.00 Types: Cigarettes Quit date: 08/03/1982 Years since quittin.1 Smokeless tobacco: Never Vaping Use Vaping Use: Never used Substance Use Topics Alcohol use: Yes Comment: a glass of wine with dinner every night Drug use: No Reviewed current medications, allergies, past medical history, surgical history, family history and social history today. REVIEW OF SYSTEMS All other reviewed and negative other than HPI. HEALTH MAINTENANCE: Reviewed health maintenance issues today and recommended the following in detail. COVID-19 VACCINE(6 - Pfizer series) due on 04/17/2022 VITALS: BP 98/62 Pulse 73 Ht 154.9 cm (5' 1 ) Wt 61.5 kg (135 lb 9.6 oz) SpO2 95% BMI 25.62 kg/m Last 4 Encounter Wt Readings: Date: Wt: 03/17/2022 62.6 kg (138 lb) 03/01/2022 62.1 kg (137 lb) 12/23/2021 61.1 kg (134 lb 12.8 oz) 12/13/2021 60.8 kg (134 lb) PHYSICAL EXAMINATION: General appearance: Well appearing, alert, in no acute distress, well-hydrated, well nourished. Skin: Skin color, texture, turgor normal, no suspicious rashes or lesions Head: Normocephalic, no masses, lesions, tenderness or abnormalities Neck: Supple, no adenopathy Lungs: Lungs clear to auscultation. No wheezing, rhonchi, rales Heart: RRR without murmur, gallop, or rubs. No ectopy Abdomen: Normal abdominal exam, Abdomen soft, non-tender. Bowel sounds normal. No masses, organomegaly Extremities: No deformities, edema, skin discoloration, clubbing or cyanosis. Good capillary refill. Musculoskeletal: No joint swelling, deformity, or tenderness BACK: Normal curvature of spine. No spine tenderness. Straight leg test negative. Deep tendon reflexes 2+/4 at patellas. Normal lower extremity strength. Tender more over posterior femur or hip than sciatic notch. Neg figure four. ASSESSMENT/PLAN: 1. SVT (supraventricular tachycardia) ([facility]) - ICD9: 427.89, ICD10: I47.1 (primary diagnosis) - stable. No issues. 2. Chronic kidney disease, stage 3a ([facility]) - ICD9: 585.3, ICD10: N18.31 - follow labs. - BASIC METABOLIC PNL 3. Mixed hyperlipidemia - ICD9: 272.2, ICD10: E78.2 - Controlled - Continue current medications 4. Essential hypertension, benign - ICD9: 401.1, ICD10: I10 - Controlled - Continue current medications 5. Lung nodule - ICD9: 793.11, ICD10: R91.1 - no follow up needed. 6. Schatzki's ring - ICD9: 750.3, ICD10: K22.2 - stable. 7. Gastroesophageal reflux disease with esophagitis without hemorrhage - ICD9: 530.81, 530.10, ICD10: K21.00 - no changes. 8. History of bladder cancer - ICD9: V10.51, ICD10: Z85.51 - per Dr Mcclure 9. Chronic deep vein thrombosis (DVT) of proximal vein of lower extremity, unspecified laterality ([facility]) - ICD9: 453.51, ICD10: I82.5Y9 - stable no meds. 10. Type 2 diabetes mellitus with microalbuminuria, without long-term current use of insulin ([facility]) - ICD9: 250.40, 791.0, ICD10: E11.29, R80.9 - add levemir. Call sugars two to three days after starting. Discussed risks and benefits of new medication with the patient. Advised them to call if any side effects or questions. Osman Villa MD - LEVEMIR FLEXPEN 100 UNIT/ML (3 ML) SOLUTION SUBCUTANEOUS INSULIN PEN - PEN NEEDLE, DIABETIC 32 GAUGE X - HGB A1C 11. Microalbuminuria - ICD9: 791.0, ICD10: R80.9 - continue vania 12. Osteopenia of multiple sites - ICD9: 733.90, ICD10: M85.89 - stable. 13. Buttock pain - ICD9: 729.1, ICD10: M79.18 - rule out sciatica. Consider therapy - XR HIP GENERAL 3V PELV/AP/LAT LEFT Osman Villa MD documented in this encounter [facility] documented in this encounter [facility]07-20-2023 Miscellaneous Notes* Telephone Encounter - Kami Talbert LPN - 09/21/2022 2:55 PM EDT Pt called and reports she saw Dr. Mcclure and had a cystoscopy done and bladder was full of blood. Pt is being scheduled at [facility] for cystoscopy with bilateral retrograde on 11-01-22. Pt will be stoppingher Eliquis 5 days prior to surgery 10-27-22. Pt has history of bladder cancer and UTIs. If you have any questions please call pt. Kami Talbert LP documented [facility]06-14-2023 NoteHNO ID: [id number] Author: Lianet Moffett ([employer]) Service: ? Author Type: ? Type: Progress Notes Filed: 08/16/2022 12:33 PM Note Text: Kenny Newberry is identified through a medication adherence outreach initiative based on pharmacy claims data from [employer] (insurer) for ANGELA medication(s) and Statin medication(s). Patient is reviewed 08/16/22 due to medication adherence concerns with the following medications (name, strength, sig): Lisinopril 20mg, every day and Atorvastatin 40mg QD. Per data/report, last fill date and days supply: both due 06/20/22 Per reconcile dispense, last fill date and days supply: No fill history for either medication on reconcile dispense. Contacted patient: No answer; left generic VM; [employer] message sent Outcome of review/outreach: (choose outcome source and status) - Unable to reach patient by phone, LVM. [employer] message sent Lianet Moffett ([employer])[facility]06-14-2023 NotePatient Outreach (PHPOHE) KENNY NEWBERRY ([id number]) 1940 F Date Time Provider Department 08/16/22 OSMAN VILLA During your visit today, we recorded the following information about you: Lianet Moffett ([employer]) 08/16/2022 12:33 PM Signed Kenny Newberry is identified through a medication adherence outreach initiative based on pharmacy claims data from [employer] (insurer) for ANGELA medication(s) and Statin medication(s). Patient is reviewed 08/16/22 due to medication adherence concerns with the following medications (name, strength, sig): Lisinopril 20mg, every day and Atorvastatin 40mg QD. Per data/report, last fill date and days supply: both due 06/20/22 Per reconcile dispense, last fill date and days supply: No fill history for either medication on reconcile dispense. Contacted patient: No answer; left generic VM; [employer] message sent Outcome of review/outreach: (choose outcome source and status) - Unable to reach patient by phone, LVM. [employer] message sent Lianet Moffett ([employer]) Allergies As of Date: 08/16/2022 Noted Allergy Reaction ACTOS (PIOGLITAZONE) 03/24/2019 15 - Contraindication-Medical [place]as* Comments: Hx bladder cancer METFORMIN 10/12/2017 8 - GI Upset Comments: Diarrhea PRILOSEC (OMEPRAZOLE MAGNESIUM) 09/02/2012 8 - GI Upset Date Reviewed: 03/17/2022 Reviewed by: Yudy Orellana LPN - Fully Assessed Reason for Visit: Allied Health Visit [5] Cmt: Medication Adherence Outreach Prescriptions as of 08/16/2022 - apixaban (ELIQUIS) 5 mg tab(s) Take 1 tablet by mouth twice daily. - SITagliptin phosphate (JANUVIA) 100 mg tablet Take 1 tablet by mouth once daily. - blood sugar diagnostic (BLOOD GLUCOSE TEST) test strip Test blood sugar(s) 1 times daily. Dx: Type 2 DM - Controlled E11.9 Insulin: No - nateglinide (STARLIX) 60 mg tablet Take 1 tablet by mouth three times daily before meals. - atorvastatin (LIPITOR) 40 mg tablet Take 1 tablet by mouth daily at bedtime. For cholesterol. - lisinopril (ZESTRIL, PRINIVIL) 20 mg tablet Take 1 tablet by mouth once daily. - hydroCHLOROthiazide (HYDRODIURIL, ESIDRIX) 12.5 mg capsule Take 1 capsule by mouth once daily. - famotidine (PEPCID) 20 mg tablet Take 1 tablet by mouth twice daily. - estradiol (ESTRACE) 0.01 % (0.1 mg/gram) vaginal cream Apply pea-sized amount to perineum and 1 applicator vaginally Mon, Sun, Sun for atrophic vaginitis. - Ciclopirox (PENLAC) 8 % solution Apply to affected area daily at bedtime. TO AFFECTED AREA. - ONETOUCH DELICA PLUS LANCET 33 gauge USE TO CHECK GLUCOSE TWICE DAILY - Magnesium 250 mg tab Take 250 mg by mouth once daily. - BIOTIN ORAL Take 1 tablet by mouth once daily. - acetaminophen 650 mg CR tablet Take 650 mg by mouth every 8 hours as needed. - hyoscyamine sublingual (LEVSIN/SL) 0.125 mg Dissolve 1 tablet under the tongue as directed. - Lancing Device misc Tests 2 times daily - COMPOUNDED PRESCRIPTION Patient requires testing bid. Has been drastically adjusting diet up and down and we are seeing fluctuating blood sugars. Depending on results, we may be changing therapies. - Blood-Glucose Meter monitoring kit Glucose Meter of Choice - Kit - Dx: Type 2 DM - Controlled E11.9 Use to test blood glucose twice daily. - Vitamin C-Vitamin E cap Take by mouth twice daily. - CENTRUM SILVER ORAL TAB Take one(1) tablet daily. Problem List As Of Date 08/16/2022 Noted Resolved Type 2 diabetes mellitus without complication (*11/01/2004 06/29/2016 BENIGN HYPERTENSION [I10] 11/01/2004 Mixed hyperlipidemia [E78.2] 01/24/2005 BENIGN NEOPLASM LG BOWEL [D12.6] 02/07/2005 11/27/2006 DIVERTICULOSIS OF COLON W/O BLEED [K57.30] 02/07/2005 11/27/2006 BENIGN NEOPLASM LG BOWEL [D12.6] 11/27/2006 History of bladder cancer [Z85.51] 05/24/2007 Unspecified disorder of bladder [N32.9] 11/22/2007 06/29/2016 Disorder of bone and cartilage, unspecified [M8*12/06/2007 06/29/2016 Postmenopausal atrophic vaginitis [N95.2] 12/21/2008 06/29/2016 Cystocele, Midline [N81.11] 12/21/2008 Leiomyoma of uterus, unspecified [D25.9] 12/21/2008 06/29/2016 Gross hematuria [R31.0] 12/23/2008 06/29/2016 Lower urinary tract infectious disease [N39.0] 06/25/2009 06/29/2016 Hepatic cyst [K76.89] 07/27/2009 Other chronic cystitis [N30.20] 12/17/2009 06/29/2016 Uterovaginal prolapse, incomplete [N81.2] 12/24/2009 Osteopenia [M85.80] 01/25/2011 Urethral caruncle [N36.2] 08/01/2011 06/29/2016 Back pain, sacroiliac [M53.3] 06/29/2016 Irritated//Inflamed Seborrheic Keratosis [L82.0]08/17/2011 12/30/2015 Viral wart component of irritated gary ker [B07.*08/17/2011 06/29/2016 Melanocytic nevus of upper extremity: Intraderm*08/17/2011 06/29/2016 Solar Lentigines [L81.4] 08/17/2011 06/29/2016 Actinic skin damage [L57.8] 08/17/2011 06/29/2016 Scar condition and fibrosis of skin: mildly hyp*10/01/2011 0 (more content not included)...[facility]06-14-2023 History of Present illness Narrative* Lianet Moffett ([employer]) - 08/16/2022 12:29 PM EDT Kenny Newberry is identified through a medication adherence outreach initiative based on pharmacy claims data from [employer] (insurer) for ANGELA medication(s) and Statin medication(s). Patient is reviewed 08/16/22 due to medication adherence concerns with the following medications (name, strength, sig): Lisinopril 20mg, every day and Atorvastatin 40mg QD. Per data/report, last fill date and days supply: both due 06/20/22 Per reconcile dispense, last fill date and days supply: No fill history for either medication on reconcile dispense. Contacted patient: No answer; left generic VM; [employer] message sent Outcome of review/outreach: (choose outcome source and status) - Unable to reach patient by phone, LVM. [employer] message sent Lianet Moffett ([employer]) documented in this encounterC[facility]05-22-2023 NoteHNO ID: [id number] Author: Lianet Moffett ([employer]) Service: ? Author Type: ? Type: Progress Notes Filed: 07/24/2022 2:00 PM Note Text: Kenny Newberry is identified through a medication adherence outreach initiative based on pharmacy claims data from [employer] (insurer) for ANGELA medication(s) and Statin medication(s). Patient is reviewed 07/24/22 due to medication adherence concerns with the following medications (name, strength, sig): Lisinopril 20mg, every day and Atorvastatin 40mg, every day . Per data/report, last fill date and days supply: Both medications due 06/20/22 Per reconcile dispense, last fill date and days supply: No fill history in reconcile dispense. Contacted patient: No answer; left generic VM; MyChart sent Outcome of review/outreach: (choose outcome source and status) - Unable to reach pt by phone, LVM. MyChart message sent. Lianet Moffett ([employer])[facility]05-22-2023 NotePatient Outreach (PHPOHE) KENNY NEWBERRY ([id number]) 1940 F Date Time Provider Department 07/24/22 OSMAN VILLA During your visit today, we recorded the following information about you: Lianet Moffett ([employer]) 07/24/2022 2:00 PM Signed Kenny Newberry is identified through a medication adherence outreach initiative based on pharmacy claims data from [employer] (insurer) for ANGELA medication(s) and Statin medication(s). Patient is reviewed 07/24/22 due to medication adherence concerns with the following medications (name, strength, sig): Lisinopril 20mg, every day and Atorvastatin 40mg, every day . Per data/report, last fill date and days supply: Both medications due 06/20/22 Per reconcile dispense, last fill date and days supply: No fill history in reconcile dispense. Contacted patient: No answer; left generic VM; [employer] sent Outcome of review/outreach: (choose outcome source and status) - Unable to reach pt by phone, LVM. [employer] message sent. Lianet Moffett ([employer]) Allergies As of Date: 07/24/2022 Noted Allergy Reaction ACTOS (PIOGLITAZONE) 03/24/2019 15 - Contraindication-Medical [place]* Comments: Hx bladder cancer METFORMIN 10/12/2017 8 - GI Upset Comments: Diarrhea PRILOSEC (OMEPRAZOLE MAGNESIUM) 09/02/2012 8 - GI Upset Date Reviewed: 03/17/2022 Reviewed by: Yudy Orellana LPN - Fully Assessed Reason for Visit: Allied Health Visit [5] Cmt: Medication Adherence Outreach Prescriptions as of 07/24/2022 - apixaban (ELIQUIS) 5 mg tab(s) Take 1 tablet by mouth twice daily. - SITagliptin phosphate (JANUVIA) 100 mg tablet Take 1 tablet by mouth once daily. - blood sugar diagnostic (BLOOD GLUCOSE TEST) test strip Test blood sugar(s) 1 times daily. Dx: Type 2 DM - Controlled E11.9 Insulin: No - nateglinide (STARLIX) 60 mg tablet Take 1 tablet by mouth three times daily before meals. - atorvastatin (LIPITOR) 40 mg tablet Take 1 tablet by mouth daily at bedtime. For cholesterol. - lisinopril (ZESTRIL, PRINIVIL) 20 mg tablet Take 1 tablet by mouth once daily. - hydroCHLOROthiazide (HYDRODIURIL, ESIDRIX) 12.5 mg capsule Take 1 capsule by mouth once daily. - famotidine (PEPCID) 20 mg tablet Take 1 tablet by mouth twice daily. - estradiol (ESTRACE) 0.01 % (0.1 mg/gram) vaginal cream Apply pea-sized amount to perineum and 1 applicator vaginally Mon, Wed, Fri for atrophic vaginitis. - Ciclopirox (PENLAC) 8 % solution Apply to affected area daily at bedtime. TO AFFECTED AREA. - ONETOUCH DELICA PLUS LANCET 33 gauge USE TO CHECK GLUCOSE TWICE DAILY - Magnesium 250 mg tab Take 250 mg by mouth once daily. - BIOTIN ORAL Take 1 tablet by mouth once daily. - acetaminophen 650 mg CR tablet Take 650 mg by mouth every 8 hours as needed. - hyoscyamine sublingual (LEVSIN/SL) 0.125 mg Dissolve 1 tablet under the tongue as directed. - Lancing Device misc Tests 2 times daily - COMPOUNDED PRESCRIPTION Patient requires testing bid. Has been drastically adjusting diet up and down and we are seeing fluctuating blood sugars. Depending on results, we may be changing therapies. - Blood-Glucose Meter monitoring kit Glucose Meter of Choice - Kit - Dx: Type 2 DM - Controlled E11.9 Use to test blood glucose twice daily. - Vitamin C-Vitamin E cap Take by mouth twice daily. - CENTRUM SILVER ORAL TAB Take one(1) tablet daily. Problem List As Of Date 07/24/2022 Noted Resolved Type 2 diabetes mellitus without complication (*11/01/2004 06/29/2016 BENIGN HYPERTENSION [I10] 11/01/2004 Mixed hyperlipidemia [E78.2] 01/24/2005 BENIGN NEOPLASM LG BOWEL [D12.6] 02/07/2005 11/27/2006 DIVERTICULOSIS OF COLON W/O BLEED [K57.30] 02/07/2005 11/27/2006 BENIGN NEOPLASM LG BOWEL [D12.6] 11/27/2006 History of bladder cancer [Z85.51] 05/24/2007 Unspecified disorder of bladder [N32.9] 11/22/2007 06/29/2016 Disorder of bone and cartilage, unspecified [M8*12/06/2007 06/29/2016 Postmenopausal atrophic vaginitis [N95.2] 12/21/2008 06/29/2016 Cystocele, Midline [N81.11] 12/21/2008 Leiomyoma of uterus, unspecified [D25.9] 12/21/2008 06/29/2016 Gross hematuria [R31.0] 12/23/2008 06/29/2016 Lower urinary tract infectious disease [N39.0] 06/25/2009 06/29/2016 Hepatic cyst [K76.89] 07/27/2009 Other chronic cystitis [N30.20] 12/17/2009 06/29/2016 Uterovaginal prolapse, incomplete [N81.2] 12/24/2009 Osteopenia [M85.80] 01/25/2011 Urethral caruncle [N36.2] 08/01/2011 06/29/2016 Back pain, sacroiliac [M53.3] 06/29/2016 Irritated//Inflamed Seborrheic Keratosis [L82.0]08/17/2011 12/30/2015 Viral wart component of irritated gary ker [B07.*08/17/2011 06/29/2016 Melanocytic nevus of upper extremity: Intraderm*08/17/2011 06/29/2016 Solar Lentigines [L81.4] 08/17/2011 06/29/2016 Actinic skin damage [L57.8] 08/17/2011 06/29/2016 Scar condition and fibrosis of skin: mildly hyp*10/01/2011 06/29/2016 P (more content not included)...[facility]04-21-2023 NoteHNO ID: [id number] Author: Lianet Moffett (Principal Process Engineer) Service: ? Author Type: ? Type: Progress Notes Filed: 06/23/2022 5:33 PM Note Text: Kenny Newberry is identified through a medication adherence outreach initiative based on pharmacy claims data from [employer] (insurer) for ANGELA medication(s) and Statin medication(s). Patient is reviewed 06/23/22 due to medication adherence concerns with the following medications (name, strength, sig): Atorvastatin 40mg, every day, Januvia 100mg, QD and Lisinopril 20mg, QD. Per data/report, last fill date and days supply: due 06/20/22 Per reconcile dispense, last fill date and days supply: Januvia filled 06/20/22 for 90 day supply; Atorvastatin and Lisinopril last filled 03/22/22 for 90 days. Per call to pharmacy, last picked up date and days supply: Pt goes through [facility] Outcome of review/outreach: (choose outcome source and status) - Januvia Filled before Next fill date per reconcile dispense Sent [place] Audio message to pt regarding Lisinopril and Atorvastatin Lianet Moffett (Principal Process Engineer)[facility]04-21-2023 NotePatient Outreach (PHPOHE) KENNY NEWBERRY ([id number]) 1940 F Date Time Provider Department 06/23/22 OSMAN VILLA PHPOHE During your visit today, we recorded the following information about you: Lianet Moffett ([employer]) 06/23/2022 5:33 PM Signed Kenny Lala Rohith is identified through a medication adherence outreach initiative based on pharmacy claims data from [employer] (insurer) for ANGELA medication(s) and Statin medication(s). Patient is reviewed 06/23/22 due to medication adherence concerns with the following medications (name, strength, sig): Atorvastatin 40mg, every day, Januvia 100mg, QD and Lisinopril 20mg, QD. Per data/report, last fill date and days supply: due 06/20/22 Per reconcile dispense, last fill date and days supply: Januvia filled 06/20/22 for 90 day supply; Atorvastatin and Lisinopril last filled 03/22/22 for 90 days. Per call to pharmacy, last picked up date and days supply: Pt goes through [facility] Outcome of review/outreach: (choose outcome source and status) - Januvia Filled before Next fill date per reconcile dispense Sent [place] Audio message to pt regarding Lisinopril and Atorvastatin Lianet Moffett ([employer]) Allergies As of Date: 06/23/2022 Noted Allergy Reaction ACTOS (PIOGLITAZONE) 03/24/2019 15 - Contraindication-Medical [place]* Comments: Hx bladder cancer METFORMIN 10/12/2017 8 - GI Upset Comments: Diarrhea PRILOSEC (OMEPRAZOLE MAGNESIUM) 09/02/2012 8 - GI Upset Date Reviewed: 03/17/2022 Reviewed by: Yudy Orellana LPN - Fully Assessed Reason for Visit: Allied Health Visit [5] Cmt: Medication Adherence Outreach Prescriptions as of 06/23/2022 - apixaban (ELIQUIS) 5 mg tab(s) Take 1 tablet by mouth twice daily. - SITagliptin phosphate (JANUVIA) 100 mg tablet Take 1 tablet by mouth once daily. - blood sugar diagnostic (BLOOD GLUCOSE TEST) test strip Test blood sugar(s) 1 times daily. Dx: Type 2 DM - Controlled E11.9 Insulin: No - nateglinide (STARLIX) 60 mg tablet Take 1 tablet by mouth three times daily before meals. - atorvastatin (LIPITOR) 40 mg tablet Take 1 tablet by mouth daily at bedtime. For cholesterol. - lisinopril (ZESTRIL, PRINIVIL) 20 mg tablet Take 1 tablet by mouth once daily. - hydroCHLOROthiazide (HYDRODIURIL, ESIDRIX) 12.5 mg capsule Take 1 capsule by mouth once daily. - famotidine (PEPCID) 20 mg tablet Take 1 tablet by mouth twice daily. - estradiol (ESTRACE) 0.01 % (0.1 mg/gram) vaginal cream Apply pea-sized amount to perineum and 1 applicator vaginally Mon, Wed, Fri for atrophic vaginitis. - Ciclopirox (PENLAC) 8 % solution Apply to affected area daily at bedtime. TO AFFECTED AREA. - ONETOUCH DELICA PLUS LANCET 33 gauge USE TO CHECK GLUCOSE TWICE DAILY - Magnesium 250 mg tab Take 250 mg by mouth once daily. - BIOTIN ORAL Take 1 tablet by mouth once daily. - acetaminophen 650 mg CR tablet Take 650 mg by mouth every 8 hours as needed. - hyoscyamine sublingual (LEVSIN/SL) 0.125 mg Dissolve 1 tablet under the tongue as directed. - Lancing Device misc Tests 2 times daily - COMPOUNDED PRESCRIPTION Patient requires testing bid. Has been drastically adjusting diet up and down and we are seeing fluctuating blood sugars. Depending on results, we may be changing therapies. - Blood-Glucose Meter monitoring kit Glucose Meter of Choice - Kit - Dx: Type 2 DM - Controlled E11.9 Use to test blood glucose twice daily. - Vitamin C-Vitamin E cap Take by mouth twice daily. - CENTRUM SILVER ORAL TAB Take one(1) tablet daily. 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] 02/07/2005 11/27/2006 DIVERTICULOSIS OF COLON W/O BLEED [K57.30] 02/07/2005 11/27/2006 BENIGN NEOPLASM LG BOWEL [D12.6] 11/27/2006 History of bladder cancer [Z85.51] 05/24/2007 Unspecified disorder of bladder [N32.9] 11/22/2007 06/29/2016 Disorder of bone and cartilage, unspecified [M8*12/06/2007 06/29/2016 Postmenopausal atrophic vaginitis [N95.2] 12/21/2008 06/29/2016 Cystocele, Midline [N81.11] 12/21/2008 Leiomyoma of uterus, unspecified [D25.9] 12/21/2008 06/29/2016 Gross hematuria [R31.0] 12/23/2008 06/29/2016 Lower urinary tract infectious disease [N39.0] 06/25/2009 06/29/2016 Hepatic cyst [K76.89] 07/27/2009 Other chronic cystitis [N30.20] 12/17/2009 06/29/2016 Uterovaginal prolapse, incomplete [N81.2] 12/24/2009 Osteopenia [M85.80] 01/25/2011 Urethral caruncle [N36.2] 08/01/2011 06/29/2016 Back pain, sacroiliac [M53.3] 06/29/2016 Irritated//Inflamed Seborrheic Keratosis [L82.0]08/17/2011 12/30/2015 Viral wart component of irritated gary ker [B07.*08/17/2011 06/29/2016 Melanocytic nevus of upper extremity: Intraderm*08/17/2011 06/29/2016 Solar Michael (more content not included)...[facility]03-17-2023 Miscellaneous Notes* Telephone Encounter - Therese Chowdhury LPN - 05/19/2022 2:02 PM EDT Patient has been identified by name and date of : Patient phones for refill(s): Requested Prescriptions Pending Prescriptions Disp Refills apixaban (ELIQUIS) 5 mg tab(s) 60 tablet 5 Sig: Take 1 tablet by mouth twice daily. Date of last office visit in primary care: 03/16/2022, has appt 10/04/2022 Last 2 Encounter Wt Readings: Date: Wt: 03/17/2022 62.6 kg (138 lb) 03/01/2022 62.1 kg (137 lb) Previous labs/tests for medication: Not applicable Please advise. Thank you. Therese Chowdhury LPN documented in [facility] encounterC[facility]03-16-2023 Miscellaneous Notes* Telephone Encounter - Jase Foster LPN - 05/18/2022 1:36 PM EDT Left detailed message with provider instructions on secure identified voicemail. Pt to contact office in 2 weeks with BS readings. Jase Foster LPN * Telephone Encounter - Osman Villa MD - 05/18/2022 12:23 PM EDT Sugars are improving. Not perfect. Call sugars in two weeks. If continue to improve, will hold on making new changes. documented in this encounterCleveland [facility]01-17-2023 Miscellaneous Notes* Telephone Encounter - Shanika Ann LPN - 03/21/2022 10:14 AM EST Pt calls to report that rx for Januvia went to instead of Mail-in pharmacy. Pt is asking for rx to be sent to [facility]. Pharmacy updated. Patient has been identified by name and date of : Yes Requested Prescriptions Pending Prescriptions Disp Refills SITagliptin phosphate (JANUVIA) 100 mg tablet 90 tablet 3 Sig: Take 1 tablet by mouth once daily. RX INSTRUCTIONS: Patient aware RX will be sent to pharmacy. No need to notify patient. Shanika Ann LPN documented in this encounterCleveland [facility]01-16-2023 Miscellaneous Notes* Telephone Encounter - Yudy Orellana LPN - 03/20/2022 11:18 AM EST Notified and verbalizes understanding. Will get repeat labs as ordered. * Telephone Encounter - Osman Villa MD - 03/20/2022 9:31 AM EST Let her know her a1c is out of control. Is over 10. Usually if we are not doing something like trulicity. We are considering insulin. Would not wait three months. Recheck a1c in two months * Telephone Encounter - Dai Zeng RN - 03/20/2022 9:18 AM EST Patient wants pcp to know, she is not interested in taking the trulicity at this time. Reports it is too expensive and she cannot afford it. Reports her januvia and eliquis already put her in the donut hole. Patient reports she has not been diligent with watching her diet, especially over the holidays, and would like to start there, watching her diet, continue on current medication, and re-check BS again in 3 mths to check her progress. If in 3 mths, she is not able to control with diet, will then consider taking the trulicity. Just let her know when to get the lab done. Also patient was sent a [facility] message telling her to talk to pcp about an imaging test she had done that showed an actionable finding. Asking pcp to please advise. documented in this encounterC[facility]01-16-2023 Miscellaneous Notes* Telephone Encounter - Lizzie Mclaughlin Ma - 03/20/2022 9:08 AM EST Pt notified of results via [employer]ol[employer]. Lizzie Mclaughlin Ma * Telephone Encounter - Osman Villa MD - 03/20/2022 8:57 AM EST Labs show sugar is much higher. Stop januvia. Lets start the injectable we discussed. Call sugars in two weeks. It will work slowly and we may have to increase dose as we go. Also calcium is slightly up. Is lightly up. documented in this encounterCleveland Clinic Foundation01-13-2023 NoteHNO ID: [id number] Author: Osman Villa MD Service: ? Author Type: Physician Type: Progress Notes Filed: 03/17/2022 12:29 PM Note Text: Patient presents with: 6 Month Exam HPI: Patient presents today for office visit for follow up. DM: Reports overall feeling well. Medication side effects: No. Home sugar check frequency/results:yes once daily Hypoglycemic spells: No. Watching diet: Yes. Unexpected weight loss: No. Polyuria, polydipsia: No. Vision Changes: No. Foot lesions or numbness or pain: No. HTN: Patient is compliant with meds Yes Monitors bp at home: Yes. Denies side effects: Yes. Chest pain: No. Dyspnea: No. Edema: No. Palpitations: No. Syncope: No. Headache: No. Dizziness: No. HLD:no myalgias. Had seen Rebecca for UTI she had given Macrobid after urine culture came back and Dr Mcclure changed that to Amoxil when she followed up with him. She just finished this. Urinary symptoms are better. HEME:on chronic anticoagulation. No bleeding issues. Has been seeing Dr. Alanis. He has said no further follow up is needed. Component Latest Ref Rng AND Units 12/15/2021 WBC 3.70 - 11.00 k/uL 7.36 RBC 3.90 - 5.20 m/uL 4.87 Hemoglobin 11.5 - 15.5 g/dL 14.5 Hematocrit 36.0 - 46.0 % 44.6 MCV 80.0 - 100.0 fL 91.6 MCH 26.0 - 34.0 pg 29.8 MCHC 30.5 - 36.0 g/dL 32.5 RDW-CV 11.5 - 15.0 % 12.8 Platelet Count 150 - 400 k/uL 364 MPV 9.0 - 12.7 fL 9.7 Absolute nRBC <0.01 k/uL <0.01 Hemoglobin A1C 4.3 - 5.6 % 7.9 (H) Estimated Average Glucose mg/dL 180 Hep C Antibody IA Negative Negative MEDICATIONS: Current Outpatient Medications Medication Sig SITagliptin phosphate (JANUVIA) 100 mg tablet Take 1 tablet by mouth once daily. nateglinide (STARLIX) 60 mg tablet Take 1 tablet by mouth three times daily before meals. atorvastatin (LIPITOR) 40 mg tablet Take 1 tablet by mouth daily at bedtime. For cholesterol. lisinopril (ZESTRIL, PRINIVIL) 20 mg tablet Take 1 tablet by mouth once daily. hydroCHLOROthiazide (HYDRODIURIL, ESIDRIX) 12.5 mg capsule Take 1 capsule by mouth once daily. famotidine (PEPCID) 20 mg tablet Take 1 tablet by mouth twice daily. estradiol (ESTRACE) 0.01 % (0.1 mg/gram) vaginal cream Apply pea-sized amount to perineum and 1 applicator vaginally Sun, Sun, Sun for atrophic vaginitis. apixaban (ELIQUIS) 5 mg tab(s) Take 1 tablet by mouth twice daily. Magnesium 250 mg tab Take 250 mg by mouth once daily. BIOTIN ORAL Take 1 tablet by mouth once daily. Vitamin C-Vitamin E cap Take by mouth twice daily. CENTRUM SILVER ORAL TAB Take one(1) tablet daily. Ciclopirox (PENLAC) 8 % solution Apply to affected area daily at bedtime. TO AFFECTED AREA. ONETOUCH DELICA PLUS LANCET 33 gauge USE TO CHECK GLUCOSE TWICE DAILY blood sugar diagnostic (BLOOD GLUCOSE TEST) test strip Test blood sugar(s) 1 times daily. Dx: Type 2 DM - Controlled E11.9 Insulin: No acetaminophen 650 mg CR tablet Take 650 mg by mouth every 8 hours as needed. hyoscyamine sublingual (LEVSIN/SL) 0.125 mg Dissolve 1 tablet under the tongue as directed. Lancing Device misc Tests 2 times daily COMPOUNDED PRESCRIPTION Patient requires testing bid. Has been drastically adjusting diet up and down and we are seeing fluctuating blood sugars. Depending on results, we may be changing therapies. Blood-Glucose Meter monitoring kit Glucose Meter of Choice - Kit - Dx: Type 2 DM - Controlled E11.9 Use to test blood glucose twice daily. No current facility-administered medications for this visit. ALLERGIES: ALLERGIES Allergen Reactions Actos [Pioglitazone] Contraindication-Medical Surgical Hx bladder cancer Metformin GI Upset Diarrhea Prilosec [Omeprazol* GI Upset PAST MEDICAL HISTORY Diagnosis Date Back pain, sacroiliac Benign hypertensive heart disease without heart failure Benign neoplasm of colon Chronic UTI Cystocele, midline Diverticulosis of colon (without mention of hemorrhage) Hematuria Hematuria 2008 Hypertension Kidney stone 2010 Lung nodule Malignant neoplasm of bladder, part unspecified 2000 Bladder cancer TRANSITIONAL Cell, Dr. Mcclure Pyelonephritis 2010 Type II or unspecified type diabetes mellitus without mention of complication, not stated as uncontrolled Urethral caruncle Uterovaginal prolapse, incomplete PAST SURGICAL HISTORY Procedure Laterality Date COLONOSCOPY FLX DX W/COLLJ SPEC WHEN PFRMD 02/07/2005 Colonoscopy COLONOSCOPY FLX DX W/COLLJ SPEC WHEN PFRMD 06/23/2008 Colonoscopy COLONOSCOPY FLX DX W/COLLJ SPEC WHEN PFRMD 10/24/2013 Colonoscopy COLONOSCOPY FLX DX W/COLLJ SPEC WHEN PFRMD 09/09/2018 Colonoscopy COLPOSCOPY CERVIX UPPER/ADJACENT VAGINA 1991 Colposcopy- cervicitis only DILATION AND CURETTAGE DXAND/THER NONOBSTETRIC Dilation AND curettage EGD 01/10/2021 ESOPHAGOGASTRODUODENOSCOPY TRANSORAL DIAGNOSTIC 08/22/2012 EGD ESOPHAGOGASTRODUODENOSCOPY TRANSORAL DIAGNOSTIC 08/20/2017 EGD (more content not included)...[facility]01-04-2023 Miscellaneous Notes* Telephone Encounter - Kami Talbert LPN - 03/08/2022 4:21 PM EST Pt called and her mail service pharmacy has changed to [facility]. Patient has been identified by name and date of : Yes Patient phones for refill(s): Requested Prescriptions Pending Prescriptions Disp Refills SITagliptin phosphate (JANUVIA) 100 mg tablet 90 tablet 3 Sig: Take 1 tablet by mouth once daily. nateglinide (STARLIX) 60 mg tablet 270 tablet 3 Sig: Take 1 tablet by mouth three times daily before meals. atorvastatin (LIPITOR) 40 mg tablet 90 tablet 3 Sig: Take 1 tablet by mouth daily at bedtime. For cholesterol. lisinopril (ZESTRIL, PRINIVIL) 20 mg tablet 90 tablet 3 Sig: Take 1 tablet by mouth once daily. hydroCHLOROthiazide (HYDRODIURIL, ESIDRIX) 12.5 mg capsule 90 capsule 3 Sig: Take 1 capsule by mouth once daily. famotidine (PEPCID) 20 mg tablet 180 tablet 3 Sig: Take 1 tablet by mouth twice daily. Date of last office visit in primary care: 03/01/22 next apt 03/17/22 Last 2 Encounter Wt Readings: Date: Wt: 03/01/2022 62.1 kg (137 lb) 12/23/2021 61.1 kg (134 lb 12.8 oz) Previous labs/tests for medication: Cholesterol: HDL Cholesterol (mg/dL) Date Value 09/12/2021 43 02/16/2021 47 LDL Cholesterol (mg/dL) Date Value 09/12/2021 64 02/16/2021 94 ALT (U/L) Date Value 09/12/2021 24 02/16/2021 36 Non HDL Cholesterol (mg/dL) Date Value 09/12/2021 89 02/16/2021 122 Blood Pressure: BUN (mg/dL) Date Value 09/12/2021 26 02/16/2021 13 Sodium (mmol/L) Date Value 09/12/2021 137 02/16/2021 139 Last 1 Encounter BP Readings: Date: BP: 03/01/2022 120/76 No call needed to pt.Thank you. Kami Talbert LPN documented in this encounterC[facility]01-03-2023 Miscellaneous Notes* Telephone Encounter - Courtney Parks RN - 03/07/2022 10:31 AM EST Patient notified of results and provider's instructions. Patient verbalizes understanding. Courtney Parks RN * Telephone Encounter - Lisbet Flynn Cma - 03/07/2022 10:11 AM EST Left message for patient to return call to office Lisbet Flynn Cma * Telephone Encounter - Rebecca Mcgrath APRN.CNP - 03/07/2022 7:49 AM EST Please call and let patient know that her culture shows bacteria growth however the antibiotic I prescribed is not effective at killing it and I have sent a new prescription in. documented in this encounterCleveland [facility] Foundation12-28-2022 Instructions* Patient Instructions* Rebecca Mcgrath APRN.CNP - 03/01/2022 1:32 PM EST Start omnicef and estrogen cream Stop xarelto and restart Eliquis Follow up with Dr. Mcclure as scheduled Follow up with Dr. Villa as scheduled documented in this encounterCleveland Clinic Foundation12-28-2022 History of Present illness Narrative* Rebecca Mcgrath APRN.CNP - 03/01/2022 1:10 PM EST Chief Complaint Patient presents with: UTI HPI Kenny Newberry is a 81 year old female who presents here today for Above Complaints.. Patient presents with urinary complaints. Patient follows with Dr. Mcclure however he is on vacationand patient was advised to follow up with her PCP. Patient reports burning worse with urination. Patient also reports having blood in her urine since switching from eliquis to xarelto. Patient reports recurrent UTI's that have been resistant to multiple medications and had to have [facility]medications [facility]. Past medical history, appointments, medications, allergies reviewed. Previous Medical History PAST MEDICAL HISTORY Diagnosis Date Back pain, sacroiliac Benign hypertensive heart disease without heart failure Benign neoplasm of colon Chronic UTI Cystocele, midline Diverticulosis of colon (without mention of hemorrhage) Hematuria Hematuria 2008 Hypertension Kidney stone 2010 Lung nodule Malignant neoplasm of bladder, part unspecified 2000 Bladder cancer TRANSITIONAL Cell, Dr. Mcclure Pyelonephritis 2010 Type II or unspecified type diabetes mellitus without mention of complication, not stated as uncontrolled Urethral caruncle Uterovaginal prolapse, incomplete Previous Surgical History PAST SURGICAL HISTORY Procedure Laterality Date COLONOSCOPY FLX DX W/COLLJ SPEC WHEN PFRMD 02/07/2005 Colonoscopy COLONOSCOPY FLX DX W/COLLJ SPEC WHEN PFRMD 06/23/2008 Colonoscopy COLONOSCOPY FLX DX W/COLLJ SPEC WHEN PFRMD 10/24/2013 Colonoscopy COLONOSCOPY FLX DX W/COLLJ SPEC WHEN PFRMD 09/09/2018 Colonoscopy COLPOSCOPY CERVIX UPPER/ADJACENT VAGINA 1992 Colposcopy- cervicitis only DILATION & CURETTAGE DX&/THER NONOBSTETRIC Dilation & curettage EGD 01/10/2021 ESOPHAGOGASTRODUODENOSCOPY TRANSORAL DIAGNOSTIC 08/22/2012 EGD ESOPHAGOGASTRODUODENOSCOPY TRANSORAL DIAGNOSTIC 08/20/2017 EGD LITHOTRIPSY PROC UNILATERAL 2010 kidney stone PAST SURGICAL HISTORY OF BLEPHAROPLASTY PAST SURGICAL HISTORY OF CYSTOSCOPY X 3 PAST SURGICAL HISTORY OF BPS PAST SURGICAL HISTORY OF 2008 cystoscopy TONSILLECTOMY PRIMARY/SECONDARY <AGE 14 Tonsillectomy Family History FAMILY HISTORY Problem Relation Age of Onset Heart Mother other (colitis) Mother other (ra) Mother other (reflux problems) Father 02/07 other (prostate surgery benign) Father Lung Cancer Sister other (pancreatitis) Other Patient Allergies ALLERGIES Allergen Reactions Actos [Pioglitazone] Contraindication-Medical Surgical Hx bladder cancer Metformin GI Upset Diarrhea Prilosec [Omeprazol* GI Upset Current Medications Current Outpatient Medications on File Prior to Visit Medication Sig SITagliptin (JANUVIA) 100 mg tablet Take 1 tablet by mouth once daily. nateglinide (STARLIX) 60 mg tablet Take 1 tablet by mouth three times daily before meals. atorvastatin (LIPITOR) 40 mg tablet Take 1 tablet by mouth daily at bedtime. For cholesterol. lisinopril (ZESTRIL, PRINIVIL) 20 mg tablet Take 1 tablet by mouth once daily. hydroCHLOROthiazide (HYDRODIURIL, ESIDRIX) 12.5 mg capsule Take 1 capsule by mouth once daily. Ciclopirox (PENLAC) 8 % solution Apply to affected area daily at bedtime. TO AFFECTED AREA. famotidine (PEPCID) 20 mg tablet Take 1 tablet by mouth twice daily. rivaroxaban (XARELTO) 20 mg tablet Take 1 tablet by mouth daily with dinner. [employer] TechnologiesUCH DELiZ3D PLUS LANCET 33 gauge USE TO CHECK GLUCOSE TWICE DAILY Magnesium 250 mg tab Take 250 mg by mouth once daily. BIOTIN ORAL Take 1 tablet by mouth once daily. blood sugar diagnostic (BLOOD GLUCOSE TEST) test strip Test blood sugar(s) 1 times daily. Dx: Type 2 DM - Controlled E11.9 Insulin: No acetaminophen 650 mg CR tablet Take 650 mg by mouth every 8 hours as needed. hyoscyamine sublingual (LEVSIN/SL) 0.125 mg Dissolve 1 tablet under the tongue as directed. Lancing Device misc Tests 2 times daily COMPOUNDED PRESCRIPTION Patient requires testing bid. Has been drastically adjusting diet up and down and we are seeing fluctuating blood sugars. Depending on results, we may be changing therapies. Blood-Glucose Meter monitoring kit Glucose Meter of Choice - Kit - Dx: Type 2 DM - Controlled E11.9 Use to test blood glucose twice daily. Vitamin C-Vitamin E cap Take by mouth twice daily. CENTRUM SILVER ORAL TAB Take one(1) tablet daily. No current facility-administered medications on file prior to visit. Social History Social History Tobacco Use Smoking status: Former Years: 15.00 Types: Cigarettes Quit date: 08/03/1982 Years since quittin.6 Smokeless tobacco: Never Vaping Use Vaping Use: Never used Substance Use Topics Alcohol use: Yes Comment: a glass of wine with dinner every night Drug use: No Review of Symptoms REVIEW OF SYSTEMS SEE HPI EXAM: BP 120/76 Pulse 88 Resp 14 Wt 62.1 kg (137 lb) BMI 25.89 kg/m General Appearance: Well appearing, alert, in no acute distress, well-hydrated, well nourished.. Abdomen: Normal abdominal exam, Abdomen soft, non-tender. Bowel sounds normal. No masses, organomegaly. Health Maintenance List HBA1C due on 06/15/2022 LDL CHOLESTEROL due on 09/12/2022 DIABETIC FOOT EXAM due on 12/13/2022 ANNUAL PCP TEAM CHRONIC DISEASE VISIT due on 12/23/2022 BP CONTROLLED (<130/80) due on 12/23/2022 DILATED RETINAL EXAM due on 02/13/2023 BONE DENSITY Completed INFLUENZA Completed ADVANCE DIRECTIVE DISCUSSION Completed DEPRESSION ASSESSMENT Completed SHINGRIX VACCINE Completed COVID-19 VACCINE Completed PNEUMOCOCCAL: 65+ Completed DTAP,TDAP,TD Discontinued URINE ALBUMIN:CREATININE RATIO Discontinued ASSESSMENT/PLAN: 1. Recurrent UTI (urinary tract infection) - ICD9: 599.0, ICD10: N39.0 (primary diagnosis) recurrent - UA positive for armando esterase, hematuria, and proteinuria - Send urine for culture - Begin treatment with Omnicef for 10 days - Patient education for prevention given - UA DIP, URINE (POC) - URINE CULTURE - CEFDINIR 300 MG CAPSULE - ESTRADIOL 0.01% (0.1 MG/GRAM) VAGINAL CREAM 2. Chronic deep vein thrombosis (DVT) of proximal vein of lower extremity, unspecified laterality (HCC) - ICD9: 453.51, ICD10: I82.5Y9 - APIXABAN 5 MG TABLET -Patient transitioned back to Eliquis due to large amount of hematuria with Xarelto Rebecca Mcgrath APRN.GREEN CHAIN OPERATOR documented in this encounterC[facility]12-28-2022 Miscellaneous Notes* Telephone Encounter - Dai Zeng RN - 03/01/2022 9:37 AM EST Protocol recommends see provider in 24 hours. Scheduled appt. Reason for Disposition Urinating more frequently than usual (i.e., frequency) Answer Assessment - Initial Assessment Questions 1. SYMPTOM: Burning, frequency, AZO test strip is positive for nitrates but not leukocytes, urine is cloudy. No fever. No confusion. 2. ONSET: 5 days ago 3. PAIN: No pain but does have burning with urination. 4. CAUSE: Hx of chronic UTI's. See's Dr. Mcclure, but doctor is on vacation. Last had UTI in August and was treated with 7 days of IV maxipine, at the [facility] infusion center. Reports the culture usually comes back as e-coli. 5. OTHER SYMPTOMS: Blood in urine. Recently switched from eliquis to xarelto 20 mg /day (DVT in right leg), a month ago. Been taking a blood thinner for over a year. Has had blood in urine since starting the xarelto for a month. Dr. Mcclure not aware. When 1st started eliquis had blood in urine at the 10 mg dose. Eliquis was changed to 5 mg dose. 6. : no Protocols used: Urinary Ossgiipt-[id number] documented in this encounterCleveland Clinic Foundation11-30-2022 Miscellaneous Notes* Letter - Mammography Coordinator - 02/01/2022 12:12 PM EST February 01, 2022 PID: [id number] Kenny Newberry [address] [place] [address] Dear Ms. Newberry, We are pleased to inform you that the results of your recent breast imaging exam on 02/01/2022 are normal. Early detection of cancer is very important. We also understand recommendations regarding breast cancer screening are controversial. Please discuss with your primary care provider which strategy is best for you and whether a mammogram is right for you. Your imaging studies and report will be kept on file at [facility] as part of your permanent medical record and are available for your continuing care. Thank you for allowing us to help in meeting your health care needs. Sincerely, Dr. Rainey Interpreting Radiologist [facility] (Normal over 40) documented in this encounterCleveland Clinic Foundation11-30-2022 History of Present illness Narrative* Nona Scott, Mammo Tech - 02/01/2022 11:30 AM EST Radiology Service Progress Note PATIENT NAME: Kenny Newberry DATE OF SERVICE: February 01, 2022 TIME: 11:49 AM PATIENT IDENTITY VERIFICATION COMPLETED USING TWO (2) IDENTIFIERS: Name and Date of confirmedby patient verbally. FALL SCREENING: Has the patient had 2 falls in the last year or 1 fall with injury or currently using an Ambulatory Assistive Device (Walker, Cane, Wheelchair, Crutches, etc.)? No PATIENT GENDER DATA: Female. status: : No status: NO. PATIENT RELEVANT IMPLANT DATA REVIEWED: Not Applicable RADIOLOGY DEPARTMENT: Mammography PERIPHERAL IV DATA: Not applicable SIGNED BY: Nona Scott [employer] [place] February 01, 2022 11:49 AM Electronically signed by Nona Scott [employer] at 02/01/2022 12:07 PM EST documented in this encounterCleveland Clinic Foundation11-21-2022 Miscellaneous Notes* Telephone Encounter - Kami Talbert CREEL SELECTOR - 01/23/2022 1:36 PM EST Pt called and states she received a message from [facility] that they are waiting to hear from ouroffice on the following medications. Patient has been identified by name and date of : Yes Patient phones for refill(s): Requested Prescriptions Pending Prescriptions Disp Refills SITagliptin (JANUVIA) 100 mg tablet 90 tablet 3 Sig: Take 1 tablet by mouth once daily. nateglinide (STARLIX) 60 mg tablet 270 tablet 3 Sig: Take 1 tablet by mouth three times daily before meals. atorvastatin (LIPITOR) 40 mg tablet 90 tablet 3 Sig: Take 1 tablet by mouth daily at bedtime. For cholesterol. lisinopril (ZESTRIL, PRINIVIL) 20 mg tablet 90 tablet 3 Sig: Take 1 tablet by mouth once daily. hydroCHLOROthiazide (HYDRODIURIL, ESIDRIX) 12.5 mg capsule 90 capsule 3 Sig: Take 1 capsule by mouth once daily. Date of last office visit in primary care: 12/23/21 next apt 03/17/22 Last 2 Encounter Wt Readings: Date: Wt: 12/23/2021 61.1 kg (134 lb 12.8 oz) 12/13/2021 60.8 kg (134 lb) Previous labs/tests for medication: Cholesterol: HDL Cholesterol (mg/dL) Date Value 09/12/2021 43 02/16/2021 47 LDL Cholesterol (mg/dL) Date Value 09/12/2021 64 02/16/2021 94 ALT (U/L) Date Value 09/12/2021 24 02/16/2021 36 Non HDL Cholesterol (mg/dL) Date Value 09/12/2021 89 02/16/2021 122 Blood Pressure: BUN (mg/dL) Date Value 09/12/2021 26 02/16/2021 13 Sodium (mmol/L) Date Value 09/12/2021 137 02/16/2021 139 Last 1 Encounter BP Readings: Date: BP: 12/23/2021 118/78 Please advise. Thank you. Kami Talbert LPN documented in this encounterCleveland Clinic Foundation11-07-2022 History of Past illness Narrative* Problem Noted Date Diagnosed Date Resolved Date Chest pain 01/09/2022 10/04/2022 10/04/2022 Gastroesophageal reflux dise ase without esophagitis 08/08/2017 04/09/2020 Overview: Added automatically from request for surgery [id number] Dysphagia 08/08/2017 04/09/2020 Overview: Added automatically from request for surgery [id number] Hyperlipidemia 09/01/2014 06/29/2016 HTN (hypertension) 09/01/2014 7 Controlled type 2 diabetes m ellitus with proteinuria or albuminuria 03/04/2014 06/29/2016 CKD (chronic kidney disease) stage 3, GFR 30-59 ml/min 08/29/2013 06/29/2016 Diabetes mellitus 08/29/2013 06/29/2016 Scar condition and fibrosis of skin: mildly hypertrophic 10/01/2011 06/29/2016 Postinflammatory skin change s: mild hyperpigmentation and hypopigmentaion 10/01/2011 Irritated//Inflamed Seborrheic Keratosis 08/17/2011 12/30/2015 Viral wart component of irritated gary ker 08/17/2011 06/29/2016 Melanocytic nevus of upper e xtremity: Intradermal Nevus moles upper arms 08/17/201106/29 Solar Lentigines 08/17/2011 06/29/2016 Actinic skin damage 08/17/2011 06/30/19 17 Urethral caruncle 08/01/2011 06/29/2016 Other chronic cystitis 12/17/200906/29 Lower urinary tract infectious disease 06/25/2009 06/29/2016 Gross hematuria 12/23/2008 06/29/2016 Postmenopausal atrophic vaginitis 12/21/2008 06/29/2016 Leiomyoma of uterus, unspecified 12/21/2008 06/29/2016 Disorder of bone and cartilage, unspecified 12/06/2007 06/29/2016 Unspecified disorder of bladder 11/22/2007 06/29/2016 Benign neoplasm of colon 02/07/2005 Diverticulosis of colon (wit hout mention of hemorrhage) 02/07/2005 11/27/2006 Type 2 diabetes mellitus without complication 11/02/19 05 06/29/2016 Back pain, sacroiliac 2016 documented as of this encounter (statuses as of 10/04/2022) [facility] History of Past illness Narrative* Problem Noted Date Diagnosed Date Resolved Date Chest pain 01/09/2022 10/04/2022 10/04/2022 Gastroesophageal reflux dise ase without esophagitis 08/08/2017 04/09/2020 Overview: Added automatically from request for surgery [id number] Dysphagia 08/08/2017 04/09/2020 Overview: Added automatically from request for surgery [id number] Hyperlipidemia 09/01/2014 06/29/2016 HTN (hypertension) 09/01/2014 7 Controlled type 2 diabetes m ellitus with proteinuria or albuminuria 03/04/2014 06/29/2016 CKD (chronic kidney disease) stage 3, GFR 30-59 ml/min 08/29/2013 06/29/2016 Diabetes mellitus 08/29/2013 06/29/2016 Scar condition and fibrosis of skin: mildly hypertrophic 10/01/2011 06/29/2016 Postinflammatory skin change s: mild hyperpigmentation and hypopigmentaion 10/01/2011 Irritated//Inflamed Seborrheic Keratosis 08/17/2011 12/30/2015 Viral wart component of irritated gary ker 08/17/2011 06/29/2016 Melanocytic nevus of upper e xtremity: Intradermal Nevus moles upper arms 08/17/201106/29 Solar Lentigines 08/17/2011 06/29/2016 Actinic skin damage 08/17/2011 06/30/19 17 Urethral caruncle 08/01/2011 06/29/2016 Other chronic cystitis 12/17/200906/29 Lower urinary tract infectious disease 06/25/2009 06/29/2016 Gross hematuria 12/23/2008 06/29/2016 Postmenopausal atrophic vaginitis 12/21/2008 06/29/2016 Leiomyoma of uterus, unspecified 12/21/2008 06/29/2016 Disorder of bone and cartilage, unspecified 12/06/2007 06/29/2016 Unspecified disorder of bladder 11/22/2007 06/29/2016 Benign neoplasm of colon 02/07/2005 Diverticulosis of colon (wit hout mention of hemorrhage) 02/07/2005 11/27/2006 Type 2 diabetes mellitus without complication 11/02/1906/29/2016 Back pain, sacroiliac 2016 documented as of this encounter (statuses as of 10/26/2022) [facility] History of Past illness Narrative* Problem Noted Date Diagnosed Date Resolved Date Chest pain 01/09/2022 10/04/2022 10/04/2022 Gastroesophageal reflux dise ase without esophagitis 08/08/2017 04/09/2020 Overview: Added automatically from request for surgery [id number] Dysphagia 08/08/2017 04/09/2020 Overview: Added automatically from request for surgery [id number] Hyperlipidemia 09/01/2014 06/29/2016 HTN (hypertension) 09/01/2014 7 Controlled type 2 diabetes m ellitus with proteinuria or albuminuria 03/04/2014 06/29/2016 CKD (chronic kidney disease) stage 3, GFR 30-59 ml/min 08/29/2013 06/29/2016 Diabetes mellitus 08/29/2013 06/29/2016 Scar condition and fibrosis of skin: mildly hypertrophic 10/01/2011 06/29/2016 Postinflammatory skin change s: mild hyperpigmentation and hypopigmentaion 10/01/2011 Irritated//Inflamed Seborrheic Keratosis 08/17/2011 12/30/2015 Viral wart component of irritated gary ker 08/17/2011 06/29/2016 Melanocytic nevus of upper e xtremity: Intradermal Nevus moles upper arms 08/17/201106/29 Solar Lentigines 08/17/2011 06/29/2016 Actinic skin damage 08/17/2011 06/30/19 17 Urethral caruncle 08/01/2011 06/29/2016 Other chronic cystitis 12/17/200906/29 Lower urinary tract infectious disease 06/25/2009 06/29/2016 Gross hematuria 12/23/2008 06/29/2016 Postmenopausal atrophic vaginitis 12/21/2008 06/29/2016 Leiomyoma of uterus, unspecified 12/21/2008 06/29/2016 Disorder of bone and cartilage, unspecified 12/06/2007 06/29/2016 Unspecified disorder of bladder 11/22/2007 06/29/2016 Benign neoplasm of colon 02/07/2005 Diverticulosis of colon (wit hout mention of hemorrhage) 02/07/2005 11/27/2006 Type 2 diabetes mellitus without complication 11/02/19 05 06/29/2016 Back pain, sacroiliac 2016 documented as of this encounter (statuses as of 10/26/2022) [facility] of Past illness Narrative* Problem Noted Date Diagnosed Date Resolved Date Chest pain 01/09/2022 10/04/2022 10/04/2022 Gastroesophageal reflux dise ase without esophagitis 08/08/2017 04/09/2020 Overview: Added automatically from request for surgery [id number] Dysphagia 08/08/2017 04/09/2020 Overview: Added automatically from request for surgery [id number] Hyperlipidemia 09/01/2014 06/29/2016 HTN (hypertension) 09/01/2014 7 Controlled type 2 diabetes m ellitus with proteinuria or albuminuria 03/04/2014 06/29/2016 CKD (chronic kidney disease) stage 3, GFR 30-59 ml/min 08/29/2013 06/29/2016 Diabetes mellitus 08/29/2013 06/29/2016 Scar condition and fibrosis of skin: mildly hypertrophic 10/01/2011 06/29/2016 Postinflammatory skin change s: mild hyperpigmentation and hypopigmentaion 10/01/2011 Irritated//Inflamed Seborrheic Keratosis 08/17/2011 12/30/2015 Viral wart component of irritated gary ker 08/17/2011 06/29/2016 Melanocytic nevus of upper e xtremity: Intradermal Nevus moles upper arms 08/17/201106/29 Solar Lentigines 08/17/2011 06/29/2016 Actinic skin damage 08/17/2011 06/30/19 17 Urethral caruncle 08/01/2011 06/29/2016 Other chronic cystitis 12/17/200906/29 Lower urinary tract infectious disease 06/25/2009 06/29/2016 Gross hematuria 12/23/2008 06/29/2016 Postmenopausal atrophic vaginitis 12/21/2008 06/29/2016 Leiomyoma of uterus, unspecified 12/21/2008 06/29/2016 Disorder of bone and cartilage, unspecified 12/06/2007 06/29/2016 Unspecified disorder of bladder 11/22/2007 06/29/2016 Benign neoplasm of colon 02/07/2005 Diverticulosis of colon (wit hout mention of hemorrhage) 02/07/2005 11/27/2006 Type 2 diabetes mellitus without complication 11/02/19 05 06/29/2016 Back pain, sacroiliac 2016 documented as of this encounter (statuses as of 11/14/2022) [facility] of Past illness Narrative* Problem Noted Date Diagnosed Date Resolved Date Chest pain 01/09/2022 10/04/2022 10/04/2022 Gastroesophageal reflux dise ase without esophagitis 08/08/2017 04/09/2020 Overview: Added automatically from request for surgery [id number] Dysphagia 08/08/2017 04/09/2020 Overview: Added automatically from request for surgery [id number] Hyperlipidemia 09/01/2014 06/29/2016 HTN (hypertension) 09/01/2014 7 Controlled type 2 diabetes m ellitus with proteinuria or albuminuria 03/04/2014 06/29/2016 CKD (chronic kidney disease) stage 3, GFR 30-59 ml/min 08/29/2013 06/29/2016 Diabetes mellitus 08/29/2013 06/29/2016 Scar condition and fibrosis of skin: mildly hypertrophic 10/01/2011 06/29/2016 Postinflammatory skin change s: mild hyperpigmentation and hypopigmentaion 10/01/2011 Irritated//Inflamed Seborrheic Keratosis 08/17/2011 12/30/2015 Viral wart component of irritated gary ker 08/17/2011 06/29/2016 Melanocytic nevus of upper e xtremity: Intradermal Nevus moles upper arms 08/17/201106/29 Solar Lentigines 08/17/2011 06/29/2016 Actinic skin damage 08/17/2011 06/30/19 17 Urethral caruncle 08/01/2011 06/29/2016 Other chronic cystitis 12/17/200906/29 Lower urinary tract infectious disease 06/25/2009 06/29/2016 Gross hematuria 12/23/2008 06/29/2016 Postmenopausal atrophic vaginitis 12/21/2008 06/29/2016 Leiomyoma of uterus, unspecified 12/21/2008 06/29/2016 Disorder of bone and cartilage, unspecified 12/06/2007 06/29/2016 Unspecified disorder of bladder 11/22/2007 06/29/2016 Benign neoplasm of colon 02/07/2005 Diverticulosis of colon (wit hout mention of hemorrhage) 02/07/2005 11/27/2006 Type 2 diabetes mellitus without complication 11/02/19 05 06/29/2016 Back pain, sacroiliac 2016 documented as of this encounter (statuses as of 11/27/2022) [facility] of Past illness Narrative* Problem Noted Date Diagnosed Date Resolved Date Chest pain 01/09/2022 10/04/2022 10/04/2022 Gastroesophageal reflux dise ase without esophagitis 08/08/2017 04/09/2020 Overview: Added automatically from request for surgery [id number] Dysphagia 08/08/2017 04/09/2020 Overview: Added automatically from request for surgery [id number] Hyperlipidemia 09/01/2014 06/29/2016 HTN (hypertension) 09/01/2014 7 Controlled type 2 diabetes m ellitus with proteinuria or albuminuria 03/04/2014 06/29/2016 CKD (chronic kidney disease) stage 3, GFR 30-59 ml/min 08/29/2013 06/29/2016 Diabetes mellitus 08/29/2013 06/29/2016 Scar condition and fibrosis of skin: mildly hypertrophic 10/01/2011 06/29/2016 Postinflammatory skin change s: mild hyperpigmentation and hypopigmentaion 10/01/2011 Irritated//Inflamed Seborrheic Keratosis 08/17/2011 12/30/2015 Viral wart component of irritated gary ker 08/17/2011 06/29/2016 Melanocytic nevus of upper e xtremity: Intradermal Nevus moles upper arms 08/17/201106/29 Solar Lentigines 08/17/2011 06/29/2016 Actinic skin damage 08/17/2011 06/30/19 17 Urethral caruncle 08/01/2011 06/29/2016 Other chronic cystitis 12/17/200906/29 Lower urinary tract infectious disease 06/25/2009 06/29/2016 Gross hematuria 12/23/2008 06/29/2016 Postmenopausal atrophic vaginitis 12/21/2008 06/29/2016 Leiomyoma of uterus, unspecified 12/21/2008 06/29/2016 Disorder of bone and cartilage, unspecified 12/06/2007 06/29/2016 Unspecified disorder of bladder 11/22/2007 06/29/2016 Benign neoplasm of colon 02/07/2005 Diverticulosis of colon (wit hout mention of hemorrhage) 02/07/2005 11/27/2006 Type 2 diabetes mellitus without complication 11/02/19 05 06/29/2016 Back pain, sacroiliac 2016 documented as of this encounter (statuses as of 11/29/2022) [facility] Past illness Narrative* Problem Noted Date Diagnosed Date Resolved Date Chest pain 01/09/2022 10/04/2022 10/04/2022 Gastroesophageal reflux dise ase without esophagitis 08/08/2017 04/09/2020 Overview: Added automatically from request for surgery [id number] Dysphagia 08/08/2017 04/09/2020 Overview: Added automatically from request for surgery [id number] Hyperlipidemia 09/01/2014 06/29/2016 HTN (hypertension) 09/01/2014 7 Controlled type 2 diabetes m ellitus with proteinuria or albuminuria 03/04/2014 06/29/2016 CKD (chronic kidney disease) stage 3, GFR 30-59 ml/min 08/29/2013 06/29/2016 Diabetes mellitus 08/29/2013 06/29/2016 Scar condition and fibrosis of skin: mildly hypertrophic 10/01/2011 06/29/2016 Postinflammatory skin change s: mild hyperpigmentation and hypopigmentaion 10/01/2011 Irritated//Inflamed Seborrheic Keratosis 08/17/2011 12/30/2015 Viral wart component of irritated gary ker 08/17/2011 06/29/2016 Melanocytic nevus of upper e xtremity: Intradermal Nevus moles upper arms 08/17/201106/29 Solar Lentigines 08/17/2011 06/29/2016 Actinic skin damage 08/17/2011 06/30/19 17 Urethral caruncle 08/01/2011 06/29/2016 Other chronic cystitis 12/17/200906/29 Lower urinary tract infectious disease 06/25/2009 06/29/2016 Gross hematuria 12/23/2008 06/29/2016 Postmenopausal atrophic vaginitis 12/21/2008 06/29/2016 Leiomyoma of uterus, unspecified 12/21/2008 06/29/2016 Disorder of bone and cartilage, unspecified 12/06/2007 06/29/2016 Unspecified disorder of bladder 11/22/2007 06/29/2016 Benign neoplasm of colon 02/07/2005 Diverticulosis of colon (wit hout mention of hemorrhage) 02/07/2005 11/27/2006 Type 2 diabetes mellitus without complication 11/02/19 05 06/29/2016 Back pain, sacroiliac 2016 documented as of this encounter (statuses as of 01/07/2023) [facility] illness Narrative* Problem Noted Date Diagnosed Date Resolved Date Chest pain 01/09/2022 10/04/2022 10/04/2022 Gastroesophageal reflux dise ase without esophagitis 08/08/2017 04/09/2020 Overview: Added automatically from request for surgery [id number] Dysphagia 08/08/2017 04/09/2020 Overview: Added automatically from request for surgery [id number] Hyperlipidemia 09/01/2014 06/29/2016 HTN (hypertension) 09/01/2014 7 Controlled type 2 diabetes m ellitus with proteinuria or albuminuria 03/04/2014 06/29/2016 CKD (chronic kidney disease) stage 3, GFR 30-59 ml/min 08/29/2013 06/29/2016 Diabetes mellitus 08/29/2013 06/29/2016 Scar condition and fibrosis of skin: mildly hypertrophic 10/01/2011 06/29/2016 Postinflammatory skin change s: mild hyperpigmentation and hypopigmentaion 10/01/2011 Irritated//Inflamed Seborrheic Keratosis 08/17/2011 12/30/2015 Viral wart component of irritated gary ker 08/17/2011 06/29/2016 Melanocytic nevus of upper e xtremity: Intradermal Nevus moles upper arms 08/17/201106/29 Solar Lentigines 08/17/2011 06/29/2016 Actinic skin damage 08/17/2011 06/30/19 17 Urethral caruncle 08/01/2011 06/29/2016 Other chronic cystitis 12/17/200906/29 Lower urinary tract infectious disease 06/25/2009 06/29/2016 Gross hematuria 12/23/2008 06/29/2016 Postmenopausal atrophic vaginitis 12/21/2008 06/29/2016 Leiomyoma of uterus, unspecified 12/21/2008 06/29/2016 Disorder of bone and cartilage, unspecified 12/06/2007 06/29/2016 Unspecified disorder of bladder 11/22/2007 06/29/2016 Benign neoplasm of colon 02/07/2005 Diverticulosis of colon (wit hout mention of hemorrhage) 02/07/2005 11/27/2006 Type 2 diabetes mellitus without complication 11/02/19 05 06/29/2016 Back pain, sacroiliac 2016 documented as of this encounter (statuses as of 01/15/2023) [facility] of Past illness Narrative* Problem Noted Date Diagnosed Date Resolved Date Chest pain 01/09/2022 10/04/2022 10/04/2022 Gastroesophageal reflux dise ase without esophagitis 08/08/2017 04/09/2020 Overview: Added automatically from request for surgery [id number] Dysphagia 08/08/2017 04/09/2020 Overview: Added automatically from request for surgery [id number] Hyperlipidemia 09/01/2014 06/29/2016 HTN (hypertension) 09/01/2014 7 Controlled type 2 diabetes m ellitus with proteinuria or albuminuria 03/04/2014 06/29/2016 CKD (chronic kidney disease) stage 3, GFR 30-59 ml/min 08/29/2013 06/29/2016 Diabetes mellitus 08/29/2013 06/29/2016 Scar condition and fibrosis of skin: mildly hypertrophic 10/01/2011 06/29/2016 Postinflammatory skin change s: mild hyperpigmentation and hypopigmentaion 10/01/2011 Irritated//Inflamed Seborrheic Keratosis 08/17/2011 12/30/2015 Viral wart component of irritated gary ker 08/17/2011 06/29/2016 Melanocytic nevus of upper e xtremity: Intradermal Nevus moles upper arms 08/17/201106/29 Solar Lentigines 08/17/2011 06/29/2016 Actinic skin damage 08/17/2011 06/30/19 17 Urethral caruncle 08/01/2011 06/29/2016 Other chronic cystitis 12/17/200906/29 Lower urinary tract infectious disease 06/25/2009 06/29/2016 Gross hematuria 12/23/2008 06/29/2016 Postmenopausal atrophic vaginitis 12/21/2008 06/29/2016 Leiomyoma of uterus, unspecified 12/21/2008 06/29/2016 Disorder of bone and cartilage, unspecified 12/06/2007 06/29/2016 Unspecified disorder of bladder 11/22/2007 06/29/2016 Benign neoplasm of colon 02/07/2005 Diverticulosis of colon (wit hout mention of hemorrhage) 02/07/2005 11/27/2006 Type 2 diabetes mellitus without complication 11/02/19 05 06/29/2016 Back pain, sacroiliac 2016 documented as of this encounter (statuses as of 01/18/2023) [facility] of Past illness Narrative* Problem Noted Date Diagnosed Date Resolved Date Chest pain 01/09/2022 10/04/2022 10/04/2022 Gastroesophageal reflux dise ase without esophagitis 08/08/2017 04/09/2020 Overview: Added automatically from request for surgery [id number] Dysphagia 08/08/2017 04/09/2020 Overview: Added automatically from request for surgery [id number] Hyperlipidemia 09/01/2014 06/29/2016 HTN (hypertension) 09/01/2014 7 Controlled type 2 diabetes m ellitus with proteinuria or albuminuria 03/04/2014 06/29/2016 CKD (chronic kidney disease) stage 3, GFR 30-59 ml/min 08/29/2013 06/29/2016 Diabetes mellitus 08/29/2013 06/29/2016 Scar condition and fibrosis of skin: mildly hypertrophic 10/01/2011 06/29/2016 Postinflammatory skin change s: mild hyperpigmentation and hypopigmentaion 10/01/2011 Irritated//Inflamed Seborrheic Keratosis 08/17/2011 12/30/2015 Viral wart component of irritated gary ker 08/17/2011 06/29/2016 Melanocytic nevus of upper e xtremity: Intradermal Nevus moles upper arms 08/17/201106/29 Solar Lentigines 08/17/2011 06/29/2016 Actinic skin damage 08/17/2011 06/30/19 17 Urethral caruncle 08/01/2011 06/29/2016 Other chronic cystitis 12/17/200906/29 Lower urinary tract infectious disease 06/25/2009 06/29/2016 Gross hematuria 12/23/2008 06/29/2016 Postmenopausal atrophic vaginitis 12/21/2008 06/29/2016 Leiomyoma of uterus, unspecified 12/21/2008 06/29/2016 Disorder of bone and cartilage, unspecified 12/06/2007 06/29/2016 Unspecified disorder of bladder 11/22/2007 06/29/2016 Benign neoplasm of colon 02/07/2005 Diverticulosis of colon (wit hout mention of hemorrhage) 02/07/2005 11/27/2006 Type 2 diabetes mellitus without complication 11/02/1906/29/2016 Back pain, sacroiliac 2016 documented as of this encounter (statuses as of 01/22/2023) [facility]-07[facility]22 History of Past illness Narrative* Problem Noted Date Diagnosed Date Resolved Date Chest pain 01/09/2022 10/04/2022 10/04/2022 Gastroesophageal reflux dise ase without esophagitis 08/08/2017 04/09/2020 Overview: Added automatically from request for surgery [id number] Dysphagia 08/08/2017 04/09/2020 Overview: Added automatically from request for surgery [id number] Hyperlipidemia 09/01/2014 06/29/2016 HTN (hypertension) 09/01/2014 7 Controlled type 2 diabetes m ellitus with proteinuria or albuminuria 03/04/2014 06/29/2016 CKD (chronic kidney disease) stage 3, GFR 30-59 ml/min 08/29/2013 06/29/2016 Diabetes mellitus 08/29/2013 06/29/2016 Scar condition and fibrosis of skin: mildly hypertrophic 10/01/2011 06/29/2016 Postinflammatory skin change s: mild hyperpigmentation and hypopigmentaion 10/01/2011 Irritated//Inflamed Seborrheic Keratosis 08/17/2011 12/30/2015 Viral wart component of irritated gary ker 08/17/2011 06/29/2016 Melanocytic nevus of upper e xtremity: Intradermal Nevus moles upper arms 08/17/201106/29 Solar Lentigines 08/17/2011 06/29/2016 Actinic skin damage 08/17/2011 06/30/19 17 Urethral caruncle 08/01/2011 06/29/2016 Other chronic cystitis 12/17/200906/29 Lower urinary tract infectious disease 06/25/2009 06/29/2016 Gross hematuria 12/23/2008 06/29/2016 Postmenopausal atrophic vaginitis 12/21/2008 06/29/2016 Leiomyoma of uterus, unspecified 12/21/2008 06/29/2016 Disorder of bone and cartilage, unspecified 12/06/2007 06/29/2016 Unspecified disorder of bladder 11/22/2007 06/29/2016 Benign neoplasm of colon 02/07/2005 Diverticulosis of colon (wit hout mention of hemorrhage) 02/07/2005 11/27/2006 Type 2 diabetes mellitus without complication 11/02/1906/29/2016 Back pain, sacroiliac 2016 documented as of this encounter (statuses as of 02/06/2023) [facility] History of Past illness Narrative* Problem Noted Date Diagnosed Date Resolved Date Chest pain 01/09/2022 10/04/2022 10/04/2022 Gastroesophageal reflux dise ase without esophagitis 08/08/2017 04/09/2020 Overview: Added automatically from request for surgery [id number] Dysphagia 08/08/2017 04/09/2020 Overview: Added automatically from request for surgery [id number] Hyperlipidemia 09/01/2014 06/29/2016 HTN (hypertension) 09/01/2014 7 Controlled type 2 diabetes m ellitus with proteinuria or albuminuria 03/04/2014 06/29/2016 CKD (chronic kidney disease) stage 3, GFR 30-59 ml/min 08/29/2013 06/29/2016 Diabetes mellitus 08/29/2013 06/29/2016 Scar condition and fibrosis of skin: mildly hypertrophic 10/01/2011 06/29/2016 Postinflammatory skin change s: mild hyperpigmentation and hypopigmentaion 10/01/2011 Irritated//Inflamed Seborrheic Keratosis 08/17/2011 12/30/2015 Viral wart component of irritated gary ker 08/17/2011 06/29/2016 Melanocytic nevus of upper e xtremity: Intradermal Nevus moles upper arms 08/17/201106/29 Solar Lentigines 08/17/2011 06/29/2016 Actinic skin damage 08/17/2011 06/30/19 17 Urethral caruncle 08/01/2011 06/29/2016 Other chronic cystitis 12/17/200906/29 Lower urinary tract infectious disease 06/25/2009 06/29/2016 Gross hematuria 12/23/2008 06/29/2016 Postmenopausal atrophic vaginitis 12/21/2008 06/29/2016 Leiomyoma of uterus, unspecified 12/21/2008 06/29/2016 Disorder of bone and cartilage, unspecified 12/06/2007 06/29/2016 Unspecified disorder of bladder 11/22/2007 06/29/2016 Benign neoplasm of colon 02/07/2005 Diverticulosis of colon (wit hout mention of hemorrhage) 02/07/2005 11/27/2006 Type 2 diabetes mellitus without complication 11/02/1906/29/2016 Back pain, sacroiliac 2016 documented as of this encounter (statuses as of 02/08/2023) [facility] History of Past illness Narrative* Problem Noted Date Diagnosed Date Resolved Date Chest pain 01/09/2022 10/04/2022 10/04/2022 Gastroesophageal reflux dise ase without esophagitis 08/08/2017 04/09/2020 Overview: Added automatically from request for surgery [id number] Dysphagia 08/08/2017 04/09/2020 Overview: Added automatically from request for surgery [id number] Hyperlipidemia 09/01/2014 06/29/2016 HTN (hypertension) 09/01/2014 7 Controlled type 2 diabetes m ellitus with proteinuria or albuminuria 03/04/2014 06/29/2016 CKD (chronic kidney disease) stage 3, GFR 30-59 ml/min 08/29/2013 06/29/2016 Diabetes mellitus 08/29/2013 06/29/2016 Scar condition and fibrosis of skin: mildly hypertrophic 10/01/2011 06/29/2016 Postinflammatory skin change s: mild hyperpigmentation and hypopigmentaion 10/01/2011 Irritated//Inflamed Seborrheic Keratosis 08/17/2011 12/30/2015 Viral wart component of irritated gary ker 08/17/2011 06/29/2016 Melanocytic nevus of upper e xtremity: Intradermal Nevus moles upper arms 08/17/201106/29 Solar Lentigines 08/17/2011 06/29/2016 Actinic skin damage 08/17/2011 06/30/19 17 Urethral caruncle 08/01/2011 06/29/2016 Other chronic cystitis 12/17/200906/29 Lower urinary tract infectious disease 06/25/2009 06/29/2016 Gross hematuria 12/23/2008 06/29/2016 Postmenopausal atrophic vaginitis 12/21/2008 06/29/2016 Leiomyoma of uterus, unspecified 12/21/2008 06/29/2016 Disorder of bone and cartilage, unspecified 12/06/2007 06/29/2016 Unspecified disorder of bladder 11/22/2007 06/29/2016 Benign neoplasm of colon 02/07/2005 Diverticulosis of colon (wit hout mention of hemorrhage) 02/07/2005 11/27/2006 Type 2 diabetes mellitus without complication 11/02/19 05 06/29/2016 Back pain, sacroiliac 2016 documented as of this encounter (statuses as of 04/18/2023) [facility] History of Past illness Narrative* Problem Noted Date Diagnosed Date Resolved Date Chest pain 01/09/2022 10/04/2022 10/04/2022 Gastroesophageal reflux dise ase without esophagitis 08/08/2017 04/09/2020 Overview: Added automatically from request for surgery [id number] Dysphagia 08/08/2017 04/09/2020 Overview: Added automatically from request for surgery [id number] Hyperlipidemia 09/01/2014 06/29/2016 HTN (hypertension) 09/01/2014 7 Controlled type 2 diabetes m ellitus with proteinuria or albuminuria 03/04/2014 06/29/2016 CKD (chronic kidney disease) stage 3, GFR 30-59 ml/min 08/29/2013 06/29/2016 Diabetes mellitus 08/29/2013 06/29/2016 Scar condition and fibrosis of skin: mildly hypertrophic 10/01/2011 06/29/2016 Postinflammatory skin change s: mild hyperpigmentation and hypopigmentaion 10/01/2011 Irritated//Inflamed Seborrheic Keratosis 08/17/2011 12/30/2015 Viral wart component of irritated gary ker 08/17/2011 06/29/2016 Melanocytic nevus of upper e xtremity: Intradermal Nevus moles upper arms 08/17/201106/29 Solar Lentigines 08/17/2011 06/29/2016 Actinic skin damage 08/17/2011 06/30/19 17 Urethral caruncle 08/01/2011 06/29/2016 Other chronic cystitis 12/17/200906/29 Lower urinary tract infectious disease 06/25/2009 06/29/2016 Gross hematuria 12/23/2008 06/29/2016 Postmenopausal atrophic vaginitis 12/21/2008 06/29/2016 Leiomyoma of uterus, unspecified 12/21/2008 06/29/2016 Disorder of bone and cartilage, unspecified 12/06/2007 06/29/2016 Unspecified disorder of bladder 11/22/2007 06/29/2016 Benign neoplasm of colon 02/07/2005 Diverticulosis of colon (wit hout mention of hemorrhage) 02/07/2005 11/27/2006 Type 2 diabetes mellitus without complication 11/02/19 05 06/29/2016 Back pain, sacroiliac 2016 documented as of this encounter (statuses as of 04/18/2023) [facility] Instructions* Patient Instructions* Moe Canada - 12/28/2021 10:48 AM EDT Diabetes Foot Care Instructions When you have diabetes, proper foot care is very important. Poor foot care may lead to amputation of a foot or leg. As a person with diabetes, you are more vulnerable to foot problems, because diabetes can damage your nerves and reduce blood flow to your feet. Here are some diabetes foot care tips to follow: Wash and Dry Your Feet Daily Use mild soaps Use warm water Pat your skin dry; do not rub. Thoroughly dry your feet. After washing, use lotion on your feet to prevent cracking. Do not put lotion between your toes. Examine Your Feet Each Day Check the tops and bottoms of your feet. Have someone else look at your feet if you cannot see them. Check for dry, cracked skin. Look for blisters, cuts, scratches, or other sores. Check for redness, increased warmth, or tenderness when touching any area of your feet. Check for ingrown toenails, corns, and calluses. If you get a blister or sore from your shoes, do not pop it. Apply a bandage and wear a differentpair of shoes. Take Care of Your Toenails Cut toenails after bathing, when they are soft. Cut toenails straight across and smooth with a nail file. Avoid cutting into the corners of toes. Do not cut cuticles. If you have neuropathy (or decreased sensation in your feet) a title attorney should always cut your toenails. Be Careful When Exercising Walk and exercise in comfortable shoes. Do not exercise when you have open sores on your feet. Protect Your Feet With Shoes and Socks Never go barefoot. Always protect your feet by wearing shoes or hard-soled slippers or footwear. Avoid shoes with high heels and pointed toes. Avoid shoes that expose your toes or heels (such as open-toed shoes or sandals). These types of shoes increase your risk for injury and potential infections. Try on new footwear with the type of socks you usually wear. Do not wear new shoes for more than an hour at a time. Change your socks daily. Look and feel inside your shoes before putting them on to make sure there are no foreign objects orrough areas. Avoid tight socks. Wear natural-fiber socks (cotton, wool, or a cotton-wool blend). Wear special shoes if your health care provider recommends them. Wear shoes/boots that will protect your feet from various weather conditions (cold, moisture, etc.). Make sure your shoes fit properly. If you have neuropathy (nerve damage), you may not notice that your shoes are too tight. Perform the footwear test described below. Footwear Test Use this simple test to see if your shoes fit correctly: Stand on a piece of paper. (Make sure you are standing and not sitting, because your foot changes shape when you stand.) Trace the outline of your foot. Trace the outline of your shoe. Compare the tracings: Is the shoe too narrow? Is your foot crammed into the shoe? The shoe should be at least 1/2 inch longer than your longest toe and as wide as your foot. Proper Shoe Choices The following types of shoes are best for people with diabetes Closed toes and heels Leather uppers without a seam inside At least 1/2 inch extra space at the end of your longest toe Inside of shoe should be soft with no rough areas Outer sole should be made of stiff material Shoes should be at least as wide as your feet Tips for Foot Care in Diabetes Don't wait to treat a minor foot problem if you have diabetes. Follow your health care provider's guidelines and first aid guidelines. Report foot injuries and infections to your health care provider immediately. Check water temperature with your elbow, not your foot. Do not use a heating pad on your feet. Do not cross your legs. Do not self-treat your corns, calluses, or other foot problems. Go to your health care provider or title attorney to treat these conditions. [facility] History of Present illness Narrative* Moe Canada - 12/28/2021 10:36 AM EDT Subjective: This 81 year old female presents to clinic for diabetic foot check. Patient has the following complaints: discolored b/l hallux toenails. Patient presents to clinic this morning for evaluation of b/l hallux toenail. She complains that her b/l hallux toenail is thick, discolored yellow and flaky. She will experience pain if anything is rubbing on the nail. Patient states this first started in the summer after she was doing a lot of walking. Patient admits to being diabetic for 22 years now. Patient +B/T/N in feet at this time. Patient -pain in legs when walking. No other pedal complaints at this time. No change in medications or medical history since last visit. PAIN EVALUATION No data found in the last 1 encounters. Hemoglobin A1C (%) Date Value 12/15/2021 7.9 09/12/2021 7.9 02/16/2021 7.7 11/05/2020 8.2 08/04/2020 7.9 04/05/2020 7.4 01/05/2020 7.2 PCP: Osman Villa MD PAST MEDICAL HISTORY Diagnosis Date Back pain, sacroiliac Benign hypertensive heart disease without heart failure Benign neoplasm of colon Chronic UTI Cystocele, midline Diverticulosis of colon (without mention of hemorrhage) Hematuria Hematuria 2009 Hypertension Kidney stone 2010 Lung nodule Malignant neoplasm of bladder, part unspecified 2000 Bladder cancer TRANSITIONAL Cell, Dr. Mcclure Pyelonephritis 2010 Type II or unspecified type diabetes mellitus without mention of complication, not stated as uncontrolled Urethral caruncle Uterovaginal prolapse, incomplete Current Outpatient Medications Medication Sig famotidine (PEPCID) 20 mg tablet Take 1 tablet by mouth twice daily. rivaroxaban (XARELTO) 20 mg tablet Take 1 tablet by mouth daily with dinner. SITagliptin (JANUVIA) 100 mg tablet Take 1 tablet by mouth once daily. nateglinide (STARLIX) 60 mg tablet Take 1 tablet by mouth three times daily before meals. atorvastatin (LIPITOR) 40 mg tablet Take 1 tablet by mouth daily at bedtime. For cholesterol. lisinopril (ZESTRIL, PRINIVIL) 20 mg tablet Take 1 tablet by mouth once daily. hydroCHLOROthiazide 12.5 mg capsule Take 1 capsule by mouth once daily. DYNAGENT SOFTWARE SL PLUS LANCET 33 gauge USE TO CHECK GLUCOSE TWICE DAILY Magnesium 250 mg tab Take 250 mg by mouth once daily. BIOTIN ORAL Take 1 tablet by mouth once daily. blood sugar diagnostic (BLOOD GLUCOSE TEST) test strip Test blood sugar(s) 1 times daily. Dx: Type 2 DM - Controlled E11.9 Insulin: No acetaminophen 650 mg CR tablet Take 650 mg by mouth every 8 hours as needed. hyoscyamine sublingual (LEVSIN/SL) 0.125 mg Dissolve 1 tablet under the tongue as directed. Lancing Device misc Tests 2 times daily COMPOUNDED PRESCRIPTION Patient requires testing bid. Has been drastically adjusting diet up and down and we are seeing fluctuating blood sugars. Depending on results, we may be changing therapies. Blood-Glucose Meter monitoring kit Glucose Meter of Choice - Kit - Dx: Type 2 DM - Controlled E11.9 Use to test blood glucose twice daily. Vitamin C-Vitamin E cap Take by mouth twice daily. CENTRUM SILVER ORAL TAB Take one(1) tablet daily. No current facility-administered medications for this visit. ALLERGIES Allergen Reactions Actos [Pioglitazone] Contraindication-Medical Surgical Hx bladder cancer Metformin GI Upset Diarrhea Prilosec [Omeprazol* GI Upset PAST SURGICAL HISTORY Procedure Laterality Date COLONOSCOPY FLX DX W/COLLJ SPEC WHEN PFRMD 02/07/2005 Colonoscopy COLONOSCOPY FLX DX W/COLLJ SPEC WHEN PFRMD 06/23/2008 Colonoscopy COLONOSCOPY FLX DX W/COLLJ SPEC WHEN PFRMD 10/24/2013 Colonoscopy COLONOSCOPY FLX DX W/COLLJ SPEC WHEN PFRMD 09/09/2018 Colonoscopy COLPOSCOPY CERVIX UPPER/ADJACENT VAGINA 1991 Colposcopy- cervicitis only DILATION & CURETTAGE DX&/THER NONOBSTETRIC Dilation & curettage EGD 01/10/2021 ESOPHAGOGASTRODUODENOSCOPY TRANSORAL DIAGNOSTIC 08/22/2012 EGD ESOPHAGOGASTRODUODENOSCOPY TRANSORAL DIAGNOSTIC 08/20/2017 EGD LITHOTRIPSY PROC UNILATERAL 2011 kidney stone PAST SURGICAL HISTORY OF BLEPHAROPLASTY PAST SURGICAL HISTORY OF CYSTOSCOPY X 3 PAST SURGICAL HISTORY OF BPS PAST SURGICAL HISTORY OF 2007 cystoscopy TONSILLECTOMY PRIMARY/SECONDARY <AGE 14 Tonsillectomy FAMILY HISTORY Problem Relation Age of Onset Heart Mother other (colitis) Mother other (ra) Mother other (reflux problems) Father 02/07 other (prostate surgery benign) Father Lung Cancer Sister other (pancreatitis) Other Social History Tobacco Use Smoking status: Former Years: 15.00 Types: Cigarettes Quit date: 08/03/1982 Years since quittin.4 Smokeless tobacco: Never Vaping Use Vaping Use: Never used Substance Use Topics Alcohol use: Yes Comment: a glass of wine with dinner every night Drug use: No REVIEW OF SYSTEMS GENERAL: Negative for Malaise, significant weight loss, fever RESPIRATORY: Negative for cough, wheezing and shortness of breath CARDIOVASCULAR: Negative for chest pain, leg swelling and palpitations GI: Negative for abdominal discomfort, blood in stools or black stools and change in bowel habits : Negative for dysuria, frequency and incontinence MUSCULOSKELETAL: Negative for joint pain or swelling, back pain, and muscle pain. SKIN: Negative for lesions, rash, and itching. HEMATOLOGY/LYMPHOLOGY Negative for prolonged bleeding, bruising easily, and swollen nodes. ENDOCRINE: Negative for cold or heat intolerance, polyuria, polydipsia and goiter. NEURO: negative The remainder of the review of systems is noncontributory. Objective: Patient presents to clinic ambulating in sneakers Constitutional: Pt is a well developed 81 year old female who is alert, oriented, cooperative and in no apparent distress. Eyes: Following during examination. No redness or drainage. Respiratory: RR normal and nonlabored. Even breathing. No evidence of distress. Psychology: Patient is engaged during conversation. Normal affect and mood. Does not appear depressed or anxious. Vasc: DP and PT pulses are palpable bilateral. CFT is less than 5 seconds bilateral. Skin temperature is warm to warm proximal to distal bilateral. There is no edema or varicosities noted. Hair growth present. Neuro: Protective sensation is intact to the foot and toes when tested with the 5.07 SWM bilateral.Vibratory sensation is decreased at the hallux bilateral. + Significant neurological defecits. Derm: Inspection and palpation performed. Nails 1 b/l are painful, discolored- yellow, thick, crumbly, dystrophic and with subungal debris. Skin is of normal turgor and texture. Hyperkeratosis noted to not present. NO ulcerations, scars, verruca or other lesions noted. Ortho: Ankle joint DF is full with the knee extended and full with knee flexed. No pain or crepitusnoted. STJ, MTJ ROM are full and free of pain or crepitus. Muscle strength is 5/5 for dorsiflexors,plantarflexors, inverters, everters. 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 Patient was seen and evaluated. 2. Patient was instructed on the continued importance of diabetic foot care along with proper diet and keeping their blood sugar under control to prevent complications. Instructions given both oral and written. 3. We discussed the possible etiologies of discolored, dystrophic, and thickened nails including fungus, yeast, mold as well as in some instances, prior trauma, or mechanical causes such as repetitive microtrauma in shoe gear. We discussed topical medication for discolored toenails which has very low success but no major side effects. We discussed oral medication. Patient will need hepatic testing prior to use. Patient informed of risks associated with Lamisil. We discussed removal of toenails.Patient would like to proceed with topoical medication 4. B/l hallux toenail was debrided 5. Diabetic shoes ordered. Moe Canada DPM * Lianet Francisco RN - 12/28/2021 10:06 AM EDT Patient presents with: Left Foot - Established Patient, Onychogryphosis Right Foot - Established Patient, Onychogryphosis Referred by PCP for toenail problems. States that they are thick, some are discolored, and flaky .Patient states that it began around the beginning of the summer. [facility] in [facility] History of Present illness Narrative* Osman Villa MD - 12/23/2021 2:19 PM EDT Patient presents with: Hospital Follow Up HPI: Patient presents today for office visit for hospital follow up. Admitted to [facility] ER for chest pain, was substernal and radiated to her jaw on 12/16 Had ekg, xray and labs including serial enzymes. Had stress test which was normal. Nothing made pain worse. Pain lasted about three hours. Has been fine since discharge. No gi issues. No trauma. No cough. No pain with movement. No increased anxiety or stress. Has been fine since. Did have her flu and covid shots earlier in the day. She wonder if it could have been related to a side effect of getting both. Just had ct of chest by her radio television technical director a few days before. MEDICATIONS: Current Outpatient Medications Medication Sig famotidine (PEPCID) 20 mg tablet Take 1 tablet by mouth twice daily. rivaroxaban (XARELTO) 20 mg tablet Take 1 tablet by mouth daily with dinner. SITagliptin (JANUVIA) 100 mg tablet Take 1 tablet by mouth once daily. nateglinide (STARLIX) 60 mg tablet Take 1 tablet by mouth three times daily before meals. atorvastatin (LIPITOR) 40 mg tablet Take 1 tablet by mouth daily at bedtime. For cholesterol. lisinopril (ZESTRIL, PRINIVIL) 20 mg tablet Take 1 tablet by mouth once daily. hydroCHLOROthiazide 12.5 mg capsule Take 1 capsule by mouth once daily. ONETOUCH DELICA PLUS LANCET 33 gauge USE TO CHECK GLUCOSE TWICE DAILY Magnesium 250 mg tab Take 250 mg by mouth once daily. BIOTIN ORAL Take 1 tablet by mouth once daily. blood sugar diagnostic (BLOOD GLUCOSE TEST) test strip Test blood sugar(s) 1 times daily. Dx: Type 2 DM - Controlled E11.9 Insulin: No acetaminophen 650 mg CR tablet Take 650 mg by mouth every 8 hours as needed. hyoscyamine sublingual (LEVSIN/SL) 0.125 mg Dissolve 1 tablet under the tongue as directed. Lancing Device misc Tests 2 times daily COMPOUNDED PRESCRIPTION Patient requires testing bid. Has been drastically adjusting diet up and down and we are seeing fluctuating blood sugars. Depending on results, we may be changing therapies. Blood-Glucose Meter monitoring kit Glucose Meter of Choice - Kit - Dx: Type 2 DM - Controlled E11.9 Use to test blood glucose twice daily. Vitamin C-Vitamin E cap Take by mouth twice daily. CENTRUM SILVER ORAL TAB Take one(1) tablet daily. No current facility-administered medications for this visit. ALLERGIES: ALLERGIES Allergen Reactions Actos [Pioglitazone] Contraindication-Medical Surgical Hx bladder cancer Metformin GI Upset Diarrhea Prilosec [Omeprazol* GI Upset PAST MEDICAL HISTORY Diagnosis Date Back pain, sacroiliac Benign hypertensive heart disease without heart failure Benign neoplasm of colon Chronic UTI Cystocele, midline Diverticulosis of colon (without mention of hemorrhage) Hematuria Hematuria 2008 Hypertension Kidney stone 2010 Lung nodule Malignant neoplasm of bladder, part unspecified 2000 Bladder cancer TRANSITIONAL Cell, Dr. Mcclure Pyelonephritis 2010 Type II or unspecified type diabetes mellitus without mention of complication, not stated as uncontrolled Urethral caruncle Uterovaginal prolapse, incomplete PAST SURGICAL HISTORY Procedure Laterality Date COLONOSCOPY FLX DX W/COLLJ SPEC WHEN PFRMD 02/07/2005 Colonoscopy COLONOSCOPY FLX DX W/COLLJ SPEC WHEN PFRMD 06/23/2008 Colonoscopy COLONOSCOPY FLX DX W/COLLJ SPEC WHEN PFRMD 10/24/2013 Colonoscopy COLONOSCOPY FLX DX W/COLLJ SPEC WHEN PFRMD 09/09/2018 Colonoscopy COLPOSCOPY CERVIX UPPER/ADJACENT VAGINA 1991 Colposcopy- cervicitis only DILATION & CURETTAGE DX&/THER NONOBSTETRIC Dilation & curettage EGD 01/10/2021 ESOPHAGOGASTRODUODENOSCOPY TRANSORAL DIAGNOSTIC 08/22/2012 EGD ESOPHAGOGASTRODUODENOSCOPY TRANSORAL DIAGNOSTIC 08/20/2017 EGD LITHOTRIPSY PROC UNILATERAL 2011 kidney stone PAST SURGICAL HISTORY OF BLEPHAROPLASTY PAST SURGICAL HISTORY OF CYSTOSCOPY X 3 PAST SURGICAL HISTORY OF BPS PAST SURGICAL HISTORY OF 2008 cystoscopy TONSILLECTOMY PRIMARY/SECONDARY <AGE 14 Tonsillectomy FAMILY HISTORY Problem Relation Age of Onset Heart Mother other (colitis) Mother other (ra) Mother other (reflux problems) Father 02/07 other (prostate surgery benign) Father Lung Cancer Sister other (pancreatitis) Other Social History Tobacco Use Smoking status: Former Years: 15.00 Types: Cigarettes Quit date: 08/03/1982 Years since quittin.4 Smokeless tobacco: Never Vaping Use Vaping Use: Never used Substance Use Topics Alcohol use: Yes Comment: a glass of wine with dinner every night Drug use: No Reviewed current medications, allergies, past medical history, surgical history, family history andsocial history today. REVIEW OF SYSTEMS All other reviewed and negative other than HPI. HEALTH MAINTENANCE: Reviewed health maintenance issues today and recommended the following in detail. There are no preventive care reminders to display for this patient. VITALS: BP 118/78 Pulse 87 Ht 154.9 cm (5' 1 ) Wt 61.1 kg (134 lb 12.8 oz) SpO2 97% BMI 25.47 kg/m Last 4 Encounter Wt Readings: Date: Wt: 12/23/2021 61.1 kg (134 lb 12.8 oz) 12/13/2021 60.8 kg (134 lb) 09/14/2021 59 kg (130 lb) 02/10/2021 64.9 kg (143 lb) PHYSICAL EXAMINATION: General appearance: Well appearing, alert, in no acute distress, well-hydrated, well nourished. Skin: Skin color, texture, turgor normal, no suspicious rashes or lesions Head: Normocephalic, no masses, lesions, tenderness or abnormalities Eyes: Anicteric sclera. Pupils are equally round and reactive to light. Extraocular movements are intact. Lungs: Lungs clear to auscultation. No wheezing, rhonchi, rales Heart: RRR without murmur, gallop, or rubs. No ectopy Abdomen: Normal abdominal exam, Abdomen soft, non-tender. Bowel sounds normal. No masses, organomegaly Extremities: No deformities, edema, skin discoloration, clubbing or cyanosis. Good capillary refill. Musculoskeletal: No joint swelling, deformity, or tenderness ASSESSMENT/PLAN: 1. Chest pain, unspecified type - ICD9: 786.50, ICD10: R07.9 (primary diagnosis) - does not appear to have been cardiac. Call if recurs. Consider gi evaluation. 2. Essential hypertension, benign - ICD9: 401.1, ICD10: I10 - good control - Continue current medication(s) - Goal of BP <130/80 3. Schatzki's ring - ICD9: 750.3, ICD10: K22.2 - as above. 4. Type 2 diabetes mellitus with microalbuminuria, without long-term current use of insulin (HCC) -ICD9: 250.40, 791.0, ICD10: E11.29, R80.9 - stable. Osman Villa MD documented in this encounterC[facility] Foundation10-13-2022 Miscellaneous Notes* Telephone Encounter - Rosalba Pierre Ma - 12/15/2021 5:00 PM EDT See message from pt. Rosalba Pierre Ma documented in this encounterCleveland Clinic Foundation10-11-2022 History of Present illness Narrative* Dai North PA-C - 12/13/2021 9:40 AM EDT 81 year old female with c/o questions about medications Essential hypertension, benign (primary encounter diagnosis) Current meds: Lisinopril 20mg daily HCTZ 12.5mg daily Patient is compliant with meds Yes Monitors bp at home: No. If yes, readings: Denies side effects: Yes. Chest pain: No. Dyspnea: No. Edema: No. Palpitations: No. Syncope: No. Headache: No. Dizziness: No. Last 3 Encounter BP Readings: Date: BP: 09/14/2021 128/72 02/10/2021 120/80 01/10/2021 89/51 Last 2 Encounter Wt Readings: Date: Wt: 09/14/2021 59 kg (130 lb) 02/10/2021 64.9 kg (143 lb) Mixed hyperlipidemia Current medication Atorvastatin 40mg daily HS Taking medication consistently Yes Observing low cholesterol high fiber diet Yes, at least often Muscle aches No Stomach complaints/ diarrhea improved with stopping metformin Last 2 Lipids: Component Latest Ref Rng & Units 02/16/2021 09/12/2021 Cholesterol, Total <200 mg/dL 169 132 Triglyceride <150 mg/dL 142 124 HDL Cholesterol >39 mg/dL 47 43 LDL Cholesterol <100 mg/dL 94 64 Non HDL Cholesterol <130 mg/dL 122 89 Fasting Time hrs Unknown 10 VLDL Cholesterol <30 mg/dL 28 25 TC:HDL Ratio <5.10 3.60 3.07 LDL:HDL Ratio <2.54 2.00 1.49 Type 2 diabetes mellitus with microalbuminuria, without long-term current use of insulin (hcc) Current medications: Taking medication as directed consistently? No Medical Issues / Complications: hypertension and hyperlipidemia Checking blood sugars at home? Yes. Occasionally. Watching diet? Yes Physical Activity: Regular Hypoglycemic spells? No Any visual disturbance? No Chest pain? No New numbness, tingling or loss of sensation? No Any recent foot problems, sores or rashes? No Any recent or sudden weight loss? No Change in urination? No. If yes: Any recent illness? Yes Last eye exam: up to date. Last foot exam: due. HBA1C: Hemoglobin A1C (%) Date Value 09/12/2021 7.9 02/16/2021 7.7 11/05/2020 8.2 ) CMP: Glucose 182 09/12/2021 BUN 26 09/12/2021 Creatinine 0.92 09/12/2021 Sodium 137 09/12/2021 Potassium 3.9 09/12/2021 Chloride 98 09/12/2021 CO2 29 09/12/2021 Protein, Total 7.2 09/12/2021 Albumin 4.1 09/12/2021 Calcium 9.6 09/12/2021 Alkaline Phosphatase 61 09/12/2021 Bilirubin, Total <0.2 09/12/2021 AST 21 09/12/2021 ALT 24 09/12/2021 Last 2 Encounter Wt Readings: Date: Wt: 09/14/2021 59 kg (130 lb) 02/10/2021 64.9 kg (143 lb) Gastroesophageal reflux disease with esophagitis without hemorrhage Current medication: Famotidine 20mg Daily Current symptoms: Last Mg level if on PPI chronically: n/a. Heartburn is controlled: Yes. Dysphagia: No. Bloody or black stools: No. Bowel changes: No. 09/09/2020: Last colonoscopy: one 5 mm polyp in the cecum, resected and retrieved. 08/20/2017 last EGD - Moderate Schatzki ring. Dilated. - Small hiatal hernia. - Patulous lower esophageal sphincter. - Erythematous mucosa in the antrum. Biopsied. - Erythematous duodenopathy. - Bilious gastric fluid. - LA Grade A reflux esophagitis. 08/20/2017 Path: Antrum, biopsy - Mild chronic inactive gastritis and reactive epithelial change, neg H.Pylori Lung nodule: 12/13/2020 CT lung: stable 11mm nodule RLL 12/23/2018 PET scan negative for viable neoplasm, mild increased glucose metabolism right mid posterior hemithorax, RLL, physiologic uptake throughout the pelvis and abdomen. 12/05/2018 CT ab/pel WO: incidental lobulated 1.5cm lung nodule on abd/pel [facility] at [facility] per Dr. Mcclure,referred to Dr. Annabelle trejo. Transitional cell bladder cancer: 09/12/[address] Mcclure: frequent UTI 07/28/2021 cysto: red lesion back of bladder, inflammation, no tumor Prior cysto 07/01/2020,2019,2017,2014,2013,2012,2012 Hx kidney stone HISTORIES FAMILY HISTORY Problem Relation Age of Onset Heart Mother other (colitis) Mother other (ra) Mother other (reflux problems) Father 02/07 other (prostate surgery benign) Father Lung Cancer Sister other (pancreatitis) Other PAST MEDICAL HISTORY Diagnosis Date Back pain, sacroiliac Benign hypertensive heart disease without heart failure Benign neoplasm of colon Chronic UTI Cystocele, midline Diverticulosis of colon (without mention of hemorrhage) Hematuria Hematuria 2008 Hypertension Kidney stone 2010 Lung nodule Malignant neoplasm of bladder, part unspecified 2000 Bladder cancer TRANSITIONAL Cell, Dr. Mcclure Pyelonephritis 2010 Type II or unspecified type diabetes mellitus without mention of complication, not stated as uncontrolled Urethral caruncle Uterovaginal prolapse, incomplete PAST SURGICAL HISTORY Procedure Laterality Date COLONOSCOPY FLX DX W/COLLJ SPEC WHEN PFRMD 02/07/2005 Colonoscopy COLONOSCOPY FLX DX W/COLLJ SPEC WHEN PFRMD 06/23/2008 Colonoscopy COLONOSCOPY FLX DX W/COLLJ SPEC WHEN PFRMD 10/24/2013 Colonoscopy COLONOSCOPY FLX DX W/COLLJ SPEC WHEN PFRMD 09/09/2018 Colonoscopy COLPOSCOPY CERVIX UPPER/ADJACENT VAGINA 1992 Colposcopy- cervicitis only DILATION & CURETTAGE DX&/THER NONOBSTETRIC Dilation & curettage EGD 01/10/2021 ESOPHAGOGASTRODUODENOSCOPY TRANSORAL DIAGNOSTIC 08/22/2012 EGD ESOPHAGOGASTRODUODENOSCOPY TRANSORAL DIAGNOSTIC 08/20/2017 EGD LITHOTRIPSY PROC UNILATERAL 2010 kidney stone PAST SURGICAL HISTORY OF BLEPHAROPLASTY PAST SURGICAL HISTORY OF CYSTOSCOPY X 3 PAST SURGICAL HISTORY OF BPS PAST SURGICAL HISTORY OF 2008 cystoscopy TONSILLECTOMY PRIMARY/SECONDARY <AGE 14 Tonsillectomy Social History Tobacco Use Smoking status: Former Years: 15.00 Types: Cigarettes Quit date: 08/03/1982 Years since quittin.3 Smokeless tobacco: Never Vaping Use Vaping Use: Never used Substance Use Topics Alcohol use: Yes Comment: a glass of wine with dinner every night Drug use: No ACTIVE PROBLEM LIST Essential Hypertension, Benign Mixed Hyperlipidemia Benign Neoplasm of Colon History of Bladder Cancer Cystocele, Midline Uterovaginal Prolapse, Incomplete Osteopenia Hiatal Hernia Gerd (Gastroesophageal Reflux Disease) 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 90 tablet 3 apixaban (ELIQUIS) 5 mg tab(s) Take 1 tablet by mouth twice daily. 60 tablet 11 nateglinide (STARLIX) 60 mg tablet Take 1 tablet by mouth three times daily before meals. 270 tablet 3 atorvastatin (LIPITOR) 40 mg tablet Take 1 tablet by mouth daily at bedtime. For cholesterol. 90 tablet 3 lisinopril (ZESTRIL, PRINIVIL) 20 mg tablet Take 1 tablet by mouth once daily. 90 tablet 3 hydroCHLOROthiazide 12.5 mg capsule Take 1 capsule by mouth once daily. 90 capsule 3 ONETOUCH DELICA PLUS LANCET 33 gauge USE TO CHECK GLUCOSE TWICE DAILY Magnesium 250 mg tab Take 250 mg by mouth once daily. BIOTIN ORAL Take 1 tablet by mouth once daily. blood sugar diagnostic (BLOOD GLUCOSE TEST) test strip Test blood sugar(s) 1 times daily. Dx: Type 2 DM - Controlled E11.9 Insulin: No 50 Strip 11 acetaminophen (TYLENOL ARTHRITIS PAIN) 650 mg CR tablet Take 650 mg by mouth every 8 hours as needed. hyoscyamine sublingual (LEVSIN/SL) 0.125 mg Dissolve 1 tablet under the tongue as directed. 30 tablet 3 Lancing Device misc Tests 2 times daily 1 Each 0 COMPOUNDED PRESCRIPTION Patient requires testing bid. Has been drastically adjusting diet up and down and we are seeing fluctuating blood sugars. Depending on results, we may be changing therapies. 1Each 0 Blood-Glucose Meter monitoring kit Glucose Meter of Choice - Kit - Dx: Type 2 DM - Controlled E11.9 Use to test blood glucose twice daily. 1 Each 0 Vitamin C-Vitamin E (CRANBERRY CONCENTRATE) ORAL Cap Take by mouth twice daily. CENTRUM SILVER ORAL TAB Take one(1) tablet daily. 0 0 No current facility-administered medications for this visit. DTAP,TDAP,TD(1 - Tdap) due on 08/09/2012 DEPRESSION ASSESSMENT Never done COVID-19 VACCINE(5 - Booster for Pfizer series) due on 08/06/2021 INFLUENZA(1) due on 11/03/2021 DIABETIC FOOT EXAM due on 11/10/2021 EXAM: BP 100/50 Pulse 81 Ht 154.9 cm (5' 1 ) Wt 60.8 kg (134 lb) SpO2 96% BMI 25.32 kg/m Pleasant well appearing adult woman in no acute distress. Alert and oriented all spheres. Normal affect and cognition. Speech normal. No deficits to learning or comprehension. Skin warm, dry, pink to lips and nailbeds. Normal turgor. Respirations regular and unlabored. HEENT: NCAT. No scleral icterus or conjunctival injection. TM's clear. Nose and oropharynx free from injection or lesion. Oral membranes moist and pink. No cervical lymph nodes. Thyroid non-tender, no masses, or enlargement. Carotids pulses 2+/4+ without bruits. No JVD with HOB at 30 degrees. Chest is normal shape. Lungs are clear to all whalen with good air exchange through out. HRRR without murmur or gallop. No lifts, heaves, or rubs. Extrem: no clubbing or cyanosis. Edema: none. Extremities are warm and pink with prompt capillary refill. Feet:Shoes and socks removed, Are you having foot pain no, No deformities, ulcers, calluses, normaldistal pulses, and sensitive to 10 gm monofilament. Severely thick nails wiith onychogryphosis pattern great toes. ASSESSMENT/PLAN: 1. Essential hypertension, benign - ICD9: 401.1, ICD10: I10 (primary diagnosis) - good control - Continue current medication(s) - Recommended regular aerobic exercise. - Recommend home blood pressure monitoring, to bring results in on next visit - Goal of BP <130/80 2. Mixed hyperlipidemia - ICD9: 272.2, ICD10: E78.2 - good control - Continue current medication. - Encouraged following a low fat, low cholesterol diet. 3. Type 2 diabetes mellitus with microalbuminuria, without long-term current use of insulin (HCC) -ICD9: 250.40, 791.0, ICD10: E11.29, R80.9 Controlled. - Continue good habits 4. Gastroesophageal reflux disease with esophagitis without hemorrhage - ICD9: 530.81, 530.10, ICD10: K21.00 Controlled - FAMOTIDINE 20 MG TABLET 5. Need for COVID-19 vaccine - ICD9: V04.89, ICD10: Z23 6. Hepatic cyst - ICD9: 573.8, ICD10: K76.89 Continue monitoring 7. Fatty liver - ICD9: 571.8, ICD10: K76.0 No evidence of inflammtory markers or liver insufficiency. 8. Renal cyst - ICD9: 753.10, ICD10: N28.1 Continue to monitor 9. Lung nodule - ICD9: 793.11, ICD10: R91.1 Stable, followed by Dr. Alanis 10. History of bladder cancer - ICD9: V10.51, ICD10: Z85.51 In remission: routine surveillance 11. Need for influenza vaccination - ICD9: V04.81, ICD10: Z23 12. 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 documented in this encounterC[facility] Clinic Foundation07-13-2022 Instructions* Patient Instructions* Osman Villa MD - 09/14/2021 11:50 AM EDT BONE MINERAL DENSITY PATIENT INSTRUCTIONS Bone mineral density testing measures the amount of calcium in certain parts of your bones. This information determines how strong your bones are. The test is used to detect osteoporosis, a disease in which the bone's mineral content and density are low, increasing a person's risk of fractures. Thelumbar spine (lower back) and the hip are the skeletal sites usually examined. For the test, remember that: 1. You cannot take this test if you are . 2. Eat a normal diet on the day of the test. 3. Take your medications as you normally would. 4. DO NOT take calcium supplements (such as Tums) for 24 hours before the test. 5. On the day of the test, leave valuables (jewelry or credit cards) at home. 6. The test should be performed prior to oral, rectal or IV contrast studies, or at least 7 days after any of these studies. For the test, you may be asked to wear a hospital gown. You will lie on your back, on a padded table, in a comfortable position. Generally, you can resume your usual activities immediately. documented in this encounterC[facility] Clinic Foundation07-13-2022 History of Present illness Narrative* Osman Villa MD - 09/14/2021 11:20 AM EDT Patient presents with: 6 Month Exam HPI: Patient presents today for office visit for follow up. DM:sugars up slightly. wants to work on diet. Has lost 10 lbs. Sugars have been slightly higher. HTN: Patient is compliant with meds Yes Denies side effects: Yes. Chest pain: No. Dyspnea: No. Edema: No. Palpitations: No. Kidney function is stable. HYPERLIPIDEMIA: Patient is taking medications: Yes. Patient denies myalgias: No. PULM: still seeing Dr. Alanis. Hematology:no more bleeding issues. Her hb is slightly lower than before. Did have some hematuria with her recent uti. UROLOGY:recently had ut. Following with Dr. Mcclure. Osteopenia:bone density. Recently got over covid. Component Latest Ref Rng & Units 09/12/2021 WBC 3.70 - 11.00 k/uL 6.99 RBC 3.90 - 5.20 m/uL 4.14 Hemoglobin 11.5 - 15.5 g/dL 12.2 Hematocrit 36.0 - 46.0 % 38.2 MCV 80.0 - 100.0 fL 92.3 MCH 26.0 - 34.0 pg 29.5 MCHC 30.5 - 36.0 g/dL 31.9 RDW-CV 11.5 - 15.0 % 12.8 Platelet Count 150 - 400 k/uL 390 MPV 9.0 - 12.7 fL 9.6 Neut% % 62.2 Abs Neut (ANC) 1.45 - 7.50 k/uL 4.34 Lymph% % 23.9 Abs Lymph 1.00 - 4.00 k/uL 1.67 Gibson% % 12.4 Abs Gibson <0.87 k/uL 0.87 (H) Eosin% % 1.1 Abs Eosin <0.46 k/uL 0.08 Baso% % 0.1 Abs Baso <0.11 k/uL <0.03 Immature Gran % % 0.3 IMMATURE GRANS (ABS) <0.10 k/uL <0.03 NRBC /100 WBC 0.0 Absolute nRBC <0.01 k/uL <0.01 DTYPE Auto Protein, Total 6.3 - 8.0 g/dL 7.2 Albumin 3.9 - 4.9 g/dL 4.1 Calcium 8.5 - 10.2 mg/dL 9.6 Bilirubin, Total 0.2 - 1.3 mg/dL <0.2 (L) Alkaline Phosphatase 34 - 123 U/L 61 AST 13 - 35 U/L 21 ALT 7 - 38 U/L 24 Glucose 74 - 99 mg/dL 182 (H) BUN 7 - 21 mg/dL 26 (H) Creatinine 0.58 - 0.96 mg/dL 0.92 Sodium 136 - 144 mmol/L 137 Potassium 3.7 - 5.1 mmol/L 3.9 Chloride 97 - 105 mmol/L 98 CO2 22 - 30 mmol/L 29 Anion Gap 9 - 18 mmol/L 10 eGFR >=60 mL/min/1.73m 64 Cholesterol, Total <200 mg/dL 132 Triglyceride <150 mg/dL 124 HDL Cholesterol >39 mg/dL 43 Non HDL Cholesterol <130 mg/dL 89 Fasting Time hrs 10 VLDL Cholesterol <30 mg/dL 25 TC:HDL Ratio <5.10 3.07 LDL Cholesterol <100 mg/dL 64 LDL:HDL Ratio <2.54 1.49 Hemoglobin A1C 4.3 - 5.6 % 7.9 (H) Estimated Average Glucose mg/dL 180 MEDICATIONS: Current Outpatient Medications Medication Sig famotidine (PEPCID) 20 mg tablet Take 1 tablet by mouth twice daily. SITagliptin (JANUVIA) 100 mg tablet Take 1 tablet by mouth once daily. apixaban (ELIQUIS) 5 mg tab(s) Take 1 tablet by mouth twice daily. nateglinide (STARLIX) 60 mg tablet Take 1 tablet by mouth three times daily before meals. atorvastatin (LIPITOR) 40 mg tablet Take 1 tablet by mouth daily at bedtime. For cholesterol. lisinopril (ZESTRIL, PRINIVIL) 20 mg tablet Take 1 tablet by mouth once daily. hydroCHLOROthiazide 12.5 mg capsule Take 1 capsule by mouth once daily. ONETOUCH DELICA PLUS LANCET 33 gauge USE TO CHECK GLUCOSE TWICE DAILY Magnesium 250 mg tab Take 250 mg by mouth once daily. BIOTIN ORAL Take 1 tablet by mouth once daily. blood sugar diagnostic (BLOOD GLUCOSE TEST) test strip Test blood sugar(s) 1 times daily. Dx: Type 2 DM - Controlled E11.9 Insulin: No acetaminophen (TYLENOL ARTHRITIS PAIN) 650 mg CR tablet Take 650 mg by mouth every 8 hours as needed. hyoscyamine sublingual (LEVSIN/SL) 0.125 mg Dissolve 1 tablet under the tongue as directed. Lancing Device misc Tests 2 times daily COMPOUNDED PRESCRIPTION Patient requires testing bid. Has been drastically adjusting diet up and down and we are seeing fluctuating blood sugars. Depending on results, we may be changing therapies. Blood-Glucose Meter monitoring kit Glucose Meter of Choice - Kit - Dx: Type 2 DM - Controlled E11.9 Use to test blood glucose twice daily. Vitamin C-Vitamin E (CRANBERRY CONCENTRATE) ORAL Cap Take by mouth twice daily. CENTRUM SILVER ORAL TAB Take one(1) tablet daily. No current facility-administered medications for this visit. ALLERGIES: ALLERGIES Allergen Reactions Actos [Pioglitazone] Contraindication-Medical Surgical Hx bladder cancer Metformin GI Upset Diarrhea Prilosec [Omeprazol* GI Upset PAST MEDICAL HISTORY Diagnosis Date Back pain, sacroiliac Benign hypertensive heart disease without heart failure Benign neoplasm of colon Chronic UTI Cystocele, midline Diverticulosis of colon (without mention of hemorrhage) Hematuria Hematuria 2008 Hypertension Kidney stone 2010 Lung nodule Malignant neoplasm of bladder, part unspecified 2000 Bladder cancer TRANSITIONAL Cell, Dr. Mcclure Pyelonephritis 2010 Type II or unspecified type diabetes mellitus without mention of complication, not stated as uncontrolled Urethral caruncle Uterovaginal prolapse, incomplete PAST SURGICAL HISTORY Procedure Laterality Date [facility]2008 [facility] 10/[facility]2013 [facility] 09/09/2018 Colonoscopy COLPOSCOPY (VAGINOSCOPY) 1991 Colposcopy- cervicitis only D&C, DIAG AND/OR THERAPEUTIC Dilation & curettage EGD 01/10/2021 EGD W/O OR W/BRUSH/WASH 08/22/2012 EGD EGD W/O OR W/BRUSH/WASH 08/20/2017 EGD LITHOTRIPSY PROC UNILATERAL 2010 kidney stone PAST SURGICAL HISTORY OF BLEPHAROPLASTY PAST SURGICAL HISTORY OF CYSTOSCOPY X 3 PAST SURGICAL HISTORY OF BPS PAST SURGICAL HISTORY OF 2007 cystoscopy REMOVAL OF TONSILS,<14 Y/O Tonsillectomy FAMILY HISTORY Problem Relation Age of Onset Heart Mother other (colitis) Mother other (ra) Mother other (reflux problems) Father 02/07 other (prostate surgery benign) Father Lung Cancer Sister other (pancreatitis) Other Social History Tobacco Use Smoking status: Former Smoker Years: 15.00 Quit date: 08/03/1982 Years since quittin.1 Smokeless tobacco: Never Used Vaping Use Vaping Use: Never used Substance Use Topics Alcohol use: Yes Comment: a glass of wine with dinner every night Drug use: No Reviewed current medications, allergies, past medical history, surgical history, family history andsocial history today. REVIEW OF SYSTEMS All other reviewed and negative other than HPI. HEALTH MAINTENANCE: Reviewed health maintenance issues today and recommended the following in detail. HEPATITIS C SCREENING Never done ADVANCE DIRECTIVE DISCUSSION - on file VITALS: BP 128/72 Pulse 76 Wt 59 kg (130 lb) BMI 24.56 kg/m Last 4 Encounter Wt Readings: Date: Wt: 02/10/2021 64.9 kg (143 lb) 01/10/2021 63.5 kg (140 lb) 12/02/2020 63.5 kg (140 lb) 11/24/2020 64 kg (141 lb) PHYSICAL EXAMINATION: General appearance: Well appearing, alert, in no acute distress, well-hydrated, well nourished. Skin: Skin color, texture, turgor normal, no suspicious rashes or lesions Head: Normocephalic, no masses, lesions, tenderness or abnormalities Lungs: Lungs clear to auscultation. No wheezing, rhonchi, rales Heart: RRR without murmur, gallop, or rubs. No ectopy Abdomen: Normal abdominal exam, Abdomen soft, non-tender. Bowel sounds normal. No masses, organomegaly Extremities: No deformities, edema, skin discoloration, clubbing or cyanosis. Good capillary refill. Musculoskeletal: No joint swelling, deformity, or tenderness ASSESSMENT/PLAN: 1. Type 2 diabetes mellitus with microalbuminuria, without long-term current use of insulin (HCC) -ICD9: 250.40, 791.0, ICD10: E11.29, R80.9 (primary diagnosis) Controlled. - Continue current medications - HGB A1C 2. Essential hypertension, benign - ICD9: 401.1, ICD10: I10 - good control - Continue current medication(s) - Goal of BP <130/80 3. Mixed hyperlipidemia - ICD9: 272.2, ICD10: E78.2 - good control - Continue current medication. 4. Lung nodule - ICD9: 793.11, ICD10: R91.1 - per pulmonary. 5. Gastroesophageal reflux disease with esophagitis without hemorrhage - ICD9: 530.81, 530.10, ICD10: K21.00 - stable. 6. Chronic deep vein thrombosis (DVT) of proximal vein of lower extremity, unspecified laterality (HCC) - ICD9: 453.51, ICD10: I82.5Y9 - check labs. Continue meds. - CBC 7. Osteopenia of multiple sites - ICD9: 733.90, ICD10: M85.89 - recheck. 8. Disorder of bone and cartilage - ICD9: 733.90, ICD10: M89.9, M94.9 - DXA-AXIAL SKELETON 9. Other specified disorders of bone density and structure, other site - ICD9: 733.99, ICD10: M85.88 - DXA-AXIAL SKELETON 10. Need for hepatitis C screening test - ICD9: V73.89, ICD10: Z11.59 - HEP C AB IA W/CONF SCRN Osman Villa RTO in six months and prn. documented in this encounterCleveland Clinic Foundation07-01-2022 Miscellaneous Notes* Telephone Encounter - Lisbet Quiroga MA - 09/02/2021 9:24 AM EDT Patient active MyChart. Patient notified via [employer] Audio message. Lisbet Quiroga MA * Telephone Encounter - Osman Villa MD - 09/02/2021 9:21 AM EDT ordered * Telephone Encounter - Therese Chowdhury LPN - 09/02/2021 8:53 AM EDT Patient calling has appt 09/14/2021, asking if lab work is needed prior to appt? Last HGBA1C was done 02/2021. Patient asking to have message put on her my chart please. Pending orders if wanted, needs diagnosis. Please advise documented in this encounterCleveland Clinic Foundation06-27-2022 Miscellaneous Notes* Telephone Encounter - Yudy Orellana LPN - 08/29/2021 10:21 AM EDT Spoke with patient they are doing well. Going to stay in till Sunday and continue to monitor. Will notify if any worsening symptoms but really feeling better at this point. Fatigue but really not sure if that is from COVID or travel at this point. * Telephone Encounter - Osman Villa MD - 08/29/2021 10:06 AM EDT Can offer to do virtual visits with one of us if interested in considering new meds. * Telephone Encounter - Therese Chowdhury LPN - 08/29/2021 9:49 AM EDT Patient calling her and her returned late yesterday from 2 week trip in [place]. They both did COVID home test about 1 am and are both COVID positive. Her symptoms began Sunday evening, chills, body aches, dry cough. Her has cold symptoms. [facility]22 Miscellaneous Notes* Telephone Encounter - Jase Foster LPN - 08/12/2021 11:08 AM EDT TC to pt, notified of provider response. Pt verbalized understanding. Pt states she's assuming thatDr. Mcclure read the results, but can't say for certain. Pt [facility] [place] She states if PCP did not seem to think there was anything worrisome onthe images then she doesn't think she needs to proceed with seeing another dr unless she should have any issues. Jase Foster LPN * Telephone Encounter - Osman Villa MD - 08/12/2021 10:41 AM EDT The mri shows no new issues in the liver shows unchanged liver cysts and a hemangioma, which are all benign. The kidney shows a cyst. I am not sure what he would be concerned about and the results were faxed to his office on 07/11 when done. It was compared to 2008 and 2009. Did he not review them? He should have had results already when he saw her at the last ov. Do we need to send again? I can send to a gi dr for a second opinion if she would like but according to [facility]ology they are ok * Telephone Encounter - Lianet Gentile RN - 08/11/2021 1:24 PM EDT Pt called in and reports Dr Mcclure is still worried about what he sees in Pts CT scan about something in her abdomen. She states he sent in to the [facility] to have a second reading done on her MRI, but hasn't heard back yet with any new readings. Pt reports she will be leaving Sunday to go out of the country for 2 weeks. She states she will be here getting her Covid swab in the morning if provider wants to leave her a MyChart message. documented in this encounterC[facility]05-09-2022 Miscellaneous Notes* Telephone Encounter - Jase Foster LPN - 07/11/2021 11:07 AM EDT TC to pt, left detailed message on secure identified voicemail. Pt only to return call to office /cany questions or concerns. Results faxed electronically to Dr. Mcclure's office. Jase Foster LPN * Telephone Encounter - Osman Villa MD - 07/09/2021 12:01 PM EDT Let her know liver cysts appear ok. Send copy of mri to her urologisit please documented in this encounterC[facility]05-06-2022 History of Present illness Narrative* RT Ritchie(R) - 07/08/2021 2:20 PM EDT Radiology Service Progress Note DATE OF SERVICE: July 08, 2021 TIME: 2:47 PM PATIENT IDENTITY VERIFICATION COMPLETED USING TWO (2) STANDARD IDENTIFIERS: Name and Date of confirmed by patient verbally. FALL SCREENING: Has the patient had 2 falls in the last year or 1 fall with injury or currently using an Ambulatory Assistive Device (Walker, Cane, Wheelchair, Crutches, etc.)? No PATIENT GENDER DATA: Female. status: : No status: NO. PATIENT RELEVANT IMPLANT DATA REVIEWED: Yes ALLERGIES: Reviewed and unchanged CONTRAST ALLERGY: NO. EXAM: MRI - CONTRAST TYPE: GROUP II PERIPHERAL IV DATA: Ambulatory: A peripheral IV was started in the Left antecubital site with a Angio cath: 22 gauge. RADIOLOGY DEPARTMENT: MR; Exam(s) Completed: Body: Liver (routine) SIGNATURE: RT Ritchie(R) PATIENT NAME: Kenny Newberry DATE: July 08, 2021 TIME: 2:47 PM documented in this encounterC[facility] Clinic Foundation04-26-2022 Miscellaneous Notes* Telephone Encounter - Glendy Leyva - 06/28/2021 3:32 PM EDT Patient notified. * Telephone Encounter - Osman Villa MD - 06/28/2021 3:29 PM EDT Can also check cbc and urine culture. Call if worsens. * Telephone Encounter - Lianet Gentile RN - 06/28/2021 8:51 AM EDT Pt reports she no longer has the URI or symptoms, she finished the antibiotic last week. She reports Dr Mcclure ordered a CT of the abdomen and pelvis to see if it's the Eliquis or a recurrence of thebladder cancer that is causing the urinary bleeding. She reports about a year ago the Eliquis had almost immediately caused urinary bleeding, but they decreased the dose and it went away until this UTI started on April 05, 2021. * Telephone Encounter - Dolores Hager APRN.CNP - 06/27/2021 8:15 PM EDT Does she need seen for her URI symptoms? Is she currently having UTI symptoms? Is she being treated? Did she hear back from Dr. Cochran's office? * Telephone Encounter - Lianet Gentile RN - 06/27/2021 11:45 AM EDT Pt called in and reports that since Apr 05 she has had urinary bleeding. She states she went in to see Kami for a UTI and her urine was dark red, the UTI came back on June 20. She also reports thatshe became very sick on June 16 with with a sorte throat and cough, did 2 home test for Covid thatcame back negative, but she still has the cough. She has been seeing Kami for bladder cancer, andhas a Cystoscopy scheduled on July 18. She states she called his office and they are supposed to call he back today. She also reports that a year ago Dr Villa placed her on Eliquis. She states she is not sure who she should call about this issue. documented in this encounterC[facility]06-06-2018 History of Past illness Narrative* Problem Noted Date Resolved Date Gastroesophageal reflux disease without esophagi tis 08/08/2017 04/09/2020 Overview: Added automatically from request for surgery [id number] Dysphagia 08/08/2017 04/09/2020 Overview: Added automatically from request for surgery [id number] Hyperlipidemia 09/01/2014 06/29/2016 HTN (hypertension) 09/01/2014 06/29/2016 Controlled type 2 diabetes m ellitus with proteinuria or albuminuria 03/04/2014 06/29/2016 CKD (chronic kidney disease) stage 3, GFR 30-59 ml/min 08/29/2013 06/29/2016 Diabetes mellitus 08/29/2013 06/29/2016 Scar condition and fibrosis of skin: mildly hype rtrophic 10/01/2011 06/29/2016 Postinflammatory skin change s: mild hyperpigmentation and hypopigmentaion 10/01/2011 06/29/2016 Irritated//Inflamed Seborrheic Keratosis 012 12/30/2015 Viral wart component of irritated gary ker 201106/29/2016 Melanocytic nevus of upper e xtremity: Intradermal Nevus moles upper arms 08/17/2011 06/29/2016 Solar Lentigines 08/17/2011 06/29/2016 Actinic skin damage 08/17/2011 06/29/2016 Urethral caruncle 08/01/2011 06/29/2016 Other chronic cystitis 12/17/2009 7 Liver cyst 07/27/2009 06/29/2016 Lower urinary tract infectious disease 0 06/29/2016 Gross hematuria 12/23/2008 06/29/2016 Postmenopausal atrophic vaginitis 12/21/2008 06/29/2016 Leiomyoma of uterus, unspecified 12/21/2008 06/29/2016 Disorder of bone and cartilage, unspecified 05/200706/29/2016 Unspecified disorder of bladder 11/22/2007 06/29/2016 Benign neoplasm of colon 02/07/2005 007 Diverticulosis of colon (without mention of hemo rrhage) 02/07/2005 11/27/2006 Malignant neoplasm of bladder 01/31/2005 Overview: Sees Dr. Mcclure Type 2 diabetes mellitus without complication 06/29/2016 Back pain, sacroiliac 06/29/2016 documented as of this encounter (statuses as of 06/28/2021) [facility] of [facility] illness Narrative* Problem Noted Date Resolved Date Gastroesophageal reflux disease without esophagi tis 08/08/2017 04/09/2020 Overview: Added automatically from request for surgery [id number] Dysphagia 08/08/2017 04/09/2020 Overview: Added automatically from request for surgery [id number] Hyperlipidemia 09/01/2014 06/29/2016 HTN (hypertension) 09/01/2014 06/29/2016 Controlled type 2 diabetes m ellitus with proteinuria or albuminuria 03/04/2014 06/29/2016 CKD (chronic kidney disease) stage 3, GFR 30-59 ml/min 08/29/2013 06/29/2016 Diabetes mellitus 08/29/2013 06/29/2016 Scar condition and fibrosis of skin: mildly hype rtrophic 10/01/2011 06/29/2016 Postinflammatory skin change s: mild hyperpigmentation and hypopigmentaion 10/01/2011 06/29/2016 Irritated//Inflamed Seborrheic Keratosis 012 12/30/2015 Viral wart component of irritated gary ker 201106/29/2016 Melanocytic nevus of upper e xtremity: Intradermal Nevus moles upper arms 08/17/2011 06/29/2016 Solar Lentigines 08/17/2011 06/29/2016 Actinic skin damage 08/17/2011 06/29/2016 Urethral caruncle 08/01/2011 06/29/2016 Other chronic cystitis 12/17/2009 7 Liver cyst 07/27/2009 06/29/2016 Lower urinary tract infectious disease 0 06/29/2016 Gross hematuria 12/23/2008 06/29/2016 Postmenopausal atrophic vaginitis 12/21/2008 06/29/2016 Leiomyoma of uterus, unspecified 12/21/2008 06/29/2016 Disorder of bone and cartilage, unspecified 05/200706/29/2016 Unspecified disorder of bladder 11/22/2007 06/29/2016 Benign neoplasm of colon 02/07/2005 007 Diverticulosis of colon (without mention of hemo rrhage) 02/07/2005 11/27/2006 Malignant neoplasm of bladder 01/31/2005 Overview: Sees Dr. Mcclure Type 2 diabetes mellitus without complication 06/29/2016 Back pain, sacroiliac 06/29/2016 documented as of this encounter (statuses as of 07/09/2021) [facility] Narrative* Problem Noted Date Resolved Date Gastroesophageal reflux disease without esophagi tis 08/08/2017 04/09/2020 Overview: Added automatically from request for surgery [id number] Dysphagia 08/08/2017 04/09/2020 Overview: Added automatically from request for surgery [id number] Hyperlipidemia 09/01/2014 06/29/2016 HTN (hypertension) 09/01/2014 06/29/2016 Controlled type 2 diabetes m ellitus with proteinuria or albuminuria 03/04/2014 06/29/2016 CKD (chronic kidney disease) stage 3, GFR 30-59 ml/min 08/29/2013 06/29/2016 Diabetes mellitus 08/29/2013 06/29/2016 Scar condition and fibrosis of skin: mildly hype rtrophic 10/01/2011 06/29/2016 Postinflammatory skin change s: mild hyperpigmentation and hypopigmentaion 10/01/2011 06/29/2016 Irritated//Inflamed Seborrheic Keratosis 012 12/30/2015 Viral wart component of irritated gary ker 201106/29/2016 Melanocytic nevus of upper e xtremity: Intradermal Nevus moles upper arms 08/17/2011 06/29/2016 Solar Lentigines 08/17/2011 06/29/2016 Actinic skin damage 08/17/2011 06/29/2016 Urethral caruncle 08/01/2011 06/29/2016 Other chronic cystitis 12/17/2009 7 Liver cyst 07/27/2009 06/29/2016 Lower urinary tract infectious disease 0 06/29/2016 Gross hematuria 12/23/2008 06/29/2016 Postmenopausal atrophic vaginitis 12/21/2008 06/29/2016 Leiomyoma of uterus, unspecified 12/21/2008 06/29/2016 Disorder of bone and cartilage, unspecified 05/200706/29/2016 Unspecified disorder of bladder 11/22/2007 06/29/2016 Benign neoplasm of colon 02/07/2005 007 Diverticulosis of colon (without mention of hemo rrhage) 02/07/2005 11/27/2006 Malignant neoplasm of bladder 01/31/2005 Overview: Sees Dr. Mcclure Type 2 diabetes mellitus without complication 06/29/2016 Back pain, sacroiliac 06/29/2016 documented as of this encounter (statuses as of 07/11/2021) [facility] N[facility]* Problem Noted Date Resolved Date Gastroesophageal reflux disease without esophagi tis 08/08/2017 04/09/2020 Overview: Added automatically from request for surgery [id number] Dysphagia 08/08/2017 04/09/2020 Overview: Added automatically from request for surgery [id number] Hyperlipidemia 09/01/2014 06/29/2016 HTN (hypertension) 09/01/2014 06/29/2016 Controlled type 2 diabetes m ellitus with proteinuria or albuminuria 03/04/2014 06/29/2016 CKD (chronic kidney disease) stage 3, GFR 30-59 ml/min 08/29/2013 06/29/2016 Diabetes mellitus 08/29/2013 06/29/2016 Scar condition and fibrosis of skin: mildly hype rtrophic 10/01/2011 06/29/2016 Postinflammatory skin change s: mild hyperpigmentation and hypopigmentaion 10/01/2011 06/29/2016 Irritated//Inflamed Seborrheic Keratosis 012 12/30/2015 Viral wart component of irritated gary ker 201106/29/2016 Melanocytic nevus of upper e xtremity: Intradermal Nevus moles upper arms 08/17/2011 06/29/2016 Solar Lentigines 08/17/2011 06/29/2016 Actinic skin damage 08/17/2011 06/29/2016 Urethral caruncle 08/01/2011 06/29/2016 Other chronic cystitis 12/17/2009 7 Liver cyst 07/27/2009 06/29/2016 Lower urinary tract infectious disease 0 06/29/2016 Gross hematuria 12/23/2008 06/29/2016 Postmenopausal atrophic vaginitis 12/21/2008 06/29/2016 Leiomyoma of uterus, unspecified 12/21/2008 06/29/2016 Disorder of bone and cartilage, unspecified 05/200706/29/2016 Unspecified disorder of bladder 11/22/2007 06/29/2016 Benign neoplasm of colon 02/07/2005 007 Diverticulosis of colon (without mention of hemo rrhage) 02/07/2005 11/27/2006 Malignant neoplasm of bladder 01/31/2005 Overview: Sees Dr. Mcclure Type 2 diabetes mellitus without complication 06/29/2016 Back pain, sacroiliac 06/29/2016 documented as of this encounter (statuses as of 08/29/2021) [facility] Narr[facility]* Problem Noted Date Resolved Date Gastroesophageal reflux disease without esophagi tis 08/08/2017 04/09/2020 Overview: Added automatically from request for surgery [id number] Dysphagia 08/08/2017 04/09/2020 Overview: Added automatically from request for surgery [id number] Hyperlipidemia 09/01/2014 06/29/2016 HTN (hypertension) 09/01/2014 06/29/2016 Controlled type 2 diabetes m ellitus with proteinuria or albuminuria 03/04/2014 06/29/2016 CKD (chronic kidney disease) stage 3, GFR 30-59 ml/min 08/29/2013 06/29/2016 Diabetes mellitus 08/29/2013 06/29/2016 Scar condition and fibrosis of skin: mildly hype rtrophic 10/01/2011 06/29/2016 Postinflammatory skin change s: mild hyperpigmentation and hypopigmentaion 10/01/2011 06/29/2016 Irritated//Inflamed Seborrheic Keratosis 012 12/30/2015 Viral wart component of irritated gary ker 201106/29/2016 Melanocytic nevus of upper e xtremity: Intradermal Nevus moles upper arms 08/17/2011 06/29/2016 Solar Lentigines 08/17/2011 06/29/2016 Actinic skin damage 08/17/2011 06/29/2016 Urethral caruncle 08/01/2011 06/29/2016 Other chronic cystitis 12/17/2009 7 Liver cyst 07/27/2009 06/29/2016 Lower urinary tract infectious disease 0 06/29/2016 Gross hematuria 12/23/2008 06/29/2016 Postmenopausal atrophic vaginitis 12/21/2008 06/29/2016 Leiomyoma of uterus, unspecified 12/21/2008 06/29/2016 Disorder of bone and cartilage, unspecified 05/200706/29/2016 Unspecified disorder of bladder 11/22/2007 06/29/2016 Benign neoplasm of colon 02/07/2005 007 Diverticulosis of colon (without mention of hemo rrhage) 02/07/2005 11/27/2006 Malignant neoplasm of bladder 01/31/2005 Overview: Sees Dr. Mcclure Type 2 diabetes mellitus without complication 06/29/2016 Back pain, sacroiliac 06/29/2016 documented as of this encounter (statuses as of 09/02/2021) [facility] N[facility]* Problem Noted Date Resolved Date Gastroesophageal reflux disease without esophagi tis 08/08/2017 04/09/2020 Overview: Added automatically from request for surgery [id number] Dysphagia 08/08/2017 04/09/2020 Overview: Added automatically from request for surgery [id number] Hyperlipidemia 09/01/2014 06/29/2016 HTN (hypertension) 09/01/2014 06/29/2016 Controlled type 2 diabetes m ellitus with proteinuria or albuminuria 03/04/2014 06/29/2016 CKD (chronic kidney disease) stage 3, GFR 30-59 ml/min 08/29/2013 06/29/2016 Diabetes mellitus 08/29/2013 06/29/2016 Scar condition and fibrosis of skin: mildly hype rtrophic 10/01/2011 06/29/2016 Postinflammatory skin change s: mild hyperpigmentation and hypopigmentaion 10/01/2011 06/29/2016 Irritated//Inflamed Seborrheic Keratosis 012 12/30/2015 Viral wart component of irritated gary ker 201106/29/2016 Melanocytic nevus of upper e xtremity: Intradermal Nevus moles upper arms 08/17/2011 06/29/2016 Solar Lentigines 08/17/2011 06/29/2016 Actinic skin damage 08/17/2011 06/29/2016 Urethral caruncle 08/01/2011 06/29/2016 Other chronic cystitis 12/17/2009 7 Liver cyst 07/27/2009 06/29/2016 Lower urinary tract infectious disease 0 06/29/2016 Gross hematuria 12/23/2008 06/29/2016 Postmenopausal atrophic vaginitis 12/21/2008 06/29/2016 Leiomyoma of uterus, unspecified 12/21/2008 06/29/2016 Disorder of bone and cartilage, unspecified 05/200706/29/2016 Unspecified disorder of bladder 11/22/2007 06/29/2016 Benign neoplasm of colon 02/07/2005 007 Diverticulosis of colon (without mention of hemo rrhage) 02/07/2005 11/27/2006 Malignant neoplasm of bladder 01/31/2005 Overview: Sees Dr. Mcclure Type 2 diabetes mellitus without complication 06/29/2016 Back pain, sacroiliac 06/29/2016 documented as of this encounter (statuses as of 09/14/2021) [facility]* Problem Noted Date Resolved Date Gastroesophageal reflux disease without esophagi tis 08/08/2017 04/09/2020 Overview: Added automatically from request for surgery [id number] Dysphagia 08/08/2017 04/09/2020 Overview: Added automatically from request for surgery [id number] Hyperlipidemia 09/01/2014 06/29/2016 HTN (hypertension) 09/01/2014 06/29/2016 Controlled type 2 diabetes m ellitus with proteinuria or albuminuria 03/04/2014 06/29/2016 CKD (chronic kidney disease) stage 3, GFR 30-59 ml/min 08/29/2013 06/29/2016 Diabetes mellitus 08/29/2013 06/29/2016 Scar condition and fibrosis of skin: mildly hype rtrophic 10/01/2011 06/29/2016 Postinflammatory skin change s: mild hyperpigmentation and hypopigmentaion 10/01/2011 06/29/2016 Irritated//Inflamed Seborrheic Keratosis 012 12/30/2015 Viral wart component of irritated gary ker 201106/29/2016 Melanocytic nevus of upper e xtremity: Intradermal Nevus moles upper arms 08/17/2011 06/29/2016 Solar Lentigines 08/17/2011 06/29/2016 Actinic skin damage 08/17/2011 06/29/2016 Urethral caruncle 08/01/2011 06/29/2016 Other chronic cystitis 12/17/2009 7 Lower urinary tract infectious disease 0 06/29/2016 Gross hematuria 12/23/2008 06/29/2016 Postmenopausal atrophic vaginitis 12/21/2008 06/29/2016 Leiomyoma of uterus, unspecified 12/21/2008 06/29/2016 Disorder of bone and cartilage, unspecified 05/200706/29/2016 Unspecified disorder of bladder 11/22/2007 06/29/2016 Benign neoplasm of colon 02/07/2005 007 Diverticulosis of colon (without mention of hemo rrhage) 02/07/2005 11/27/2006 Type 2 diabetes mellitus without complication 06/29/2016 Back pain, sacroiliac 06/29/2016 documented as of this encounter (statuses as of 12/14/2021) [facility]* Problem Noted Date Resolved Date Gastroesophageal reflux disease without esophagi tis 08/08/2017 04/09/2020 Overview: Added automatically from request for surgery [id number] Dysphagia 08/08/2017 04/09/2020 Overview: Added automatically from request for surgery [id number] Hyperlipidemia 09/01/2014 06/29/2016 HTN (hypertension) 09/01/2014 06/29/2016 Controlled type 2 diabetes m ellitus with proteinuria or albuminuria 03/04/2014 06/29/2016 CKD (chronic kidney disease) stage 3, GFR 30-59 ml/min 08/29/2013 06/29/2016 Diabetes mellitus 08/29/2013 06/29/2016 Scar condition and fibrosis of skin: mildly hype rtrophic 10/01/2011 06/29/2016 Postinflammatory skin change s: mild hyperpigmentation and hypopigmentaion 10/01/2011 06/29/2016 Irritated//Inflamed Seborrheic Keratosis 012 12/30/2015 Viral wart component of irritated gary ker 201106/29/2016 Melanocytic nevus of upper e xtremity: Intradermal Nevus moles upper arms 08/17/2011 06/29/2016 Solar Lentigines 08/17/2011 06/29/2016 Actinic skin damage 08/17/2011 06/29/2016 Urethral caruncle 08/01/2011 06/29/2016 Other chronic cystitis 12/17/2009 7 Lower urinary tract infectious disease 0 06/29/2016 Gross hematuria 12/23/2008 06/29/2016 Postmenopausal atrophic vaginitis 12/21/2008 06/29/2016 Leiomyoma of uterus, unspecified 12/21/2008 06/29/2016 Disorder of bone and cartilage, unspecified 05/200706/29/2016 Unspecified disorder of bladder 11/22/2007 06/29/2016 Benign neoplasm of colon 02/07/2005 007 Diverticulosis of colon (without mention of hemo rrhage) 02/07/2005 11/27/2006 Type 2 diabetes mellitus without complication 06/29/2016 Back pain, sacroiliac 06/29/2016 documented as of this encounter (statuses as of 12/16/2021) [facility]* Problem Noted Date Resolved Date Gastroesophageal reflux disease without esophagi tis 08/08/2017 04/09/2020 Overview: Added automatically from request for surgery [id number] Dysphagia 08/08/2017 04/09/2020 Overview: Added automatically from request for surgery [id number] Hyperlipidemia 09/01/2014 06/29/2016 HTN (hypertension) 09/01/2014 06/29/2016 Controlled type 2 diabetes m ellitus with proteinuria or albuminuria 03/04/2014 06/29/2016 CKD (chronic kidney disease) stage 3, GFR 30-59 ml/min 08/29/2013 06/29/2016 Diabetes mellitus 08/29/2013 06/29/2016 Scar condition and fibrosis of skin: mildly hype rtrophic 10/01/2011 06/29/2016 Postinflammatory skin change s: mild hyperpigmentation and hypopigmentaion 10/01/2011 06/29/2016 Irritated//Inflamed Seborrheic Keratosis 012 12/30/2015 Viral wart component of irritated gary ker 201106/29/2016 Melanocytic nevus of upper e xtremity: Intradermal Nevus moles upper arms 08/17/2011 06/29/2016 Solar Lentigines 08/17/2011 06/29/2016 Actinic skin damage 08/17/2011 06/29/2016 Urethral caruncle 08/01/2011 06/29/2016 Other chronic cystitis 12/17/2009 7 Lower urinary tract infectious disease 0 06/29/2016 Gross hematuria 12/23/2008 06/29/2016 Postmenopausal atrophic vaginitis 12/21/2008 06/29/2016 Leiomyoma of uterus, unspecified 12/21/2008 06/29/2016 Disorder of bone and cartilage, unspecified 05/200706/29/2016 Unspecified disorder of bladder 11/22/2007 06/29/2016 Benign neoplasm of colon 02/07/2005 007 Diverticulosis of colon (without mention of hemo rrhage) 02/07/2005 11/27/2006 Type 2 diabetes mellitus without complication 06/29/2016 Back pain, sacroiliac 06/29/2016 documented as of this encounter (statuses as of 12/23/2021) [facility]* Problem Noted Date Resolved Date Gastroesophageal reflux disease without esophagi tis 08/08/2017 04/09/2020 Overview: Added automatically from request for surgery [id number] Dysphagia 08/08/2017 04/09/2020 Overview: Added automatically from request for surgery [id number] Hyperlipidemia 09/01/2014 06/29/2016 HTN (hypertension) 09/01/2014 06/29/2016 Controlled type 2 diabetes m ellitus with proteinuria or albuminuria 03/04/2014 06/29/2016 CKD (chronic kidney disease) stage 3, GFR 30-59 ml/min 08/29/2013 06/29/2016 Diabetes mellitus 08/29/2013 06/29/2016 Scar condition and fibrosis of skin: mildly hype rtrophic 10/01/2011 06/29/2016 Postinflammatory skin change s: mild hyperpigmentation and hypopigmentaion 10/01/2011 06/29/2016 Irritated//Inflamed Seborrheic Keratosis 012 12/30/2015 Viral wart component of irritated gary ker 201106/29/2016 Melanocytic nevus of upper e xtremity: Intradermal Nevus moles upper arms 08/17/2011 06/29/2016 Solar Lentigines 08/17/2011 06/29/2016 Actinic skin damage 08/17/2011 06/29/2016 Urethral caruncle 08/01/2011 06/29/2016 Other chronic cystitis 12/17/2009 7 Lower urinary tract infectious disease 0 06/29/2016 Gross hematuria 12/23/2008 06/29/2016 Postmenopausal atrophic vaginitis 12/21/2008 06/29/2016 Leiomyoma of uterus, unspecified 12/21/2008 06/29/2016 Disorder of bone and cartilage, unspecified 05/200706/29/2016 Unspecified disorder of bladder 11/22/2007 06/29/2016 Benign neoplasm of colon 02/07/2005 007 Diverticulosis of colon (without mention of hemo rrhage) 02/07/2005 11/27/2006 Type 2 diabetes mellitus without complication 06/29/2016 Back pain, sacroiliac 06/29/2016 documented as of this encounter (statuses as of 12/28/2021) [facility]* Problem Noted Date Resolved Date Gastroesophageal reflux disease without esophagi tis 08/08/2017 04/09/2020 Overview: Added automatically from request for surgery [id number] Dysphagia 08/08/2017 04/09/2020 Overview: Added automatically from request for surgery [id number] Hyperlipidemia 09/01/2014 06/29/2016 HTN (hypertension) 09/01/2014 06/29/2016 Controlled type 2 diabetes m ellitus with proteinuria or albuminuria 03/04/2014 06/29/2016 CKD (chronic kidney disease) stage 3, GFR 30-59 ml/min 08/29/2013 06/29/2016 Diabetes mellitus 08/29/2013 06/29/2016 Scar condition and fibrosis of skin: mildly hype rtrophic 10/01/2011 06/29/2016 Postinflammatory skin change s: mild hyperpigmentation and hypopigmentaion 10/01/2011 06/29/2016 Irritated//Inflamed Seborrheic Keratosis 012 12/30/2015 Viral wart component of irritated gary ker 201106/29/2016 Melanocytic nevus of upper e xtremity: Intradermal Nevus moles upper arms 08/17/2011 06/29/2016 Solar Lentigines 08/17/2011 06/29/2016 Actinic skin damage 08/17/2011 06/29/2016 Urethral caruncle 08/01/2011 06/29/2016 Other chronic cystitis 12/17/2009 7 Lower urinary tract infectious disease 0 06/29/2016 Gross hematuria 12/23/2008 06/29/2016 Postmenopausal atrophic vaginitis 12/21/2008 06/29/2016 Leiomyoma of uterus, unspecified 12/21/2008 06/29/2016 Disorder of bone and cartilage, unspecified 05/200706/29/2016 Unspecified disorder of bladder 11/22/2007 06/29/2016 Benign neoplasm of colon 02/07/2005 007 Diverticulosis of colon (without mention of hemo rrhage) 02/07/2005 11/27/2006 Type 2 diabetes mellitus without complication 06/29/2016 Back pain, sacroiliac 06/29/2016 documented as of this encounter (statuses as of 01/23/2022) [facility] of Past illness Narrative* Problem Noted Date Resolved Date Gastroesophageal reflux disease without esophagi tis 08/08/2017 04/09/2020 Overview: Added automatically from request for surgery [id number] Dysphagia 08/08/2017 04/09/2020 Overview: Added automatically from request for surgery [id number] Hyperlipidemia 09/01/2014 06/29/2016 HTN (hypertension) 09/01/2014 06/29/2016 Controlled type 2 diabetes m ellitus with proteinuria or albuminuria 03/04/2014 06/29/2016 CKD (chronic kidney disease) stage 3, GFR 30-59 ml/min 08/29/2013 06/29/2016 Diabetes mellitus 08/29/2013 06/29/2016 Scar condition and fibrosis of skin: mildly hype rtrophic 10/01/2011 06/29/2016 Postinflammatory skin change s: mild hyperpigmentation and hypopigmentaion 10/01/2011 06/29/2016 Irritated//Inflamed Seborrheic Keratosis 012 12/30/2015 Viral wart component of irritated gary ker 201106/29/2016 Melanocytic nevus of upper e xtremity: Intradermal Nevus moles upper arms 08/17/2011 06/29/2016 Solar Lentigines 08/17/2011 06/29/2016 Actinic skin damage 08/17/2011 06/29/2016 Urethral caruncle 08/01/2011 06/29/2016 Other chronic cystitis 12/17/2009 7 Lower urinary tract infectious disease 0 06/29/2016 Gross hematuria 12/23/2008 06/29/2016 Postmenopausal atrophic vaginitis 12/21/2008 06/29/2016 Leiomyoma of uterus, unspecified 12/21/2008 06/29/2016 Disorder of bone and cartilage, unspecified 05/200706/29/2016 Unspecified disorder of bladder 11/22/2007 06/29/2016 Benign neoplasm of colon 02/07/2005 007 Diverticulosis of colon (without mention of hemo rrhage) 02/07/2005 11/27/2006 Type 2 diabetes mellitus without complication 06/29/2016 Back pain, sacroiliac 06/29/2016 documented as of this encounter (statuses as of 02/03/2022) [facility] of [facility] illness Narrative* Problem Noted Date Resolved Date Gastroesophageal reflux disease without esophagi tis 08/08/2017 04/09/2020 Overview: Added automatically from request for surgery [id number] Dysphagia 08/08/2017 04/09/2020 Overview: Added automatically from request for surgery [id number] Hyperlipidemia 09/01/2014 06/29/2016 HTN (hypertension) 09/01/2014 06/29/2016 Controlled type 2 diabetes m ellitus with proteinuria or albuminuria 03/04/2014 06/29/2016 CKD (chronic kidney disease) stage 3, GFR 30-59 ml/min 08/29/2013 06/29/2016 Diabetes mellitus 08/29/2013 06/29/2016 Scar condition and fibrosis of skin: mildly hype rtrophic 10/01/2011 06/29/2016 Postinflammatory skin change s: mild hyperpigmentation and hypopigmentaion 10/01/2011 06/29/2016 Irritated//Inflamed Seborrheic Keratosis 012 12/30/2015 Viral wart component of irritated gary ker 201106/29/2016 Melanocytic nevus of upper e xtremity: Intradermal Nevus moles upper arms 08/17/2011 06/29/2016 Solar Lentigines 08/17/2011 06/29/2016 Actinic skin damage 08/17/2011 06/29/2016 Urethral caruncle 08/01/2011 06/29/2016 Other chronic cystitis 12/17/2009 7 Lower urinary tract infectious disease 0 06/29/2016 Gross hematuria 12/23/2008 06/29/2016 Postmenopausal atrophic vaginitis 12/21/2008 06/29/2016 Leiomyoma of uterus, unspecified 12/21/2008 06/29/2016 Disorder of bone and cartilage, unspecified 05/200706/29/2016 Unspecified disorder of bladder 11/22/2007 06/29/2016 Benign neoplasm of colon 02/07/2005 007 Diverticulosis of colon (without mention of hemo rrhage) 02/07/2005 11/27/2006 Type 2 diabetes mellitus without complication 06/29/2016 Back pain, sacroiliac 06/29/2016 documented as of this encounter (statuses as of 02/26/2022) [facility] illness Narrative* Problem Noted Date Resolved Date Gastroesophageal reflux disease without esophagi tis 08/08/2017 04/09/2020 Overview: Added automatically from request for surgery [id number] Dysphagia 08/08/2017 04/09/2020 Overview: Added automatically from request for surgery [id number] Hyperlipidemia 09/01/2014 06/29/2016 HTN (hypertension) 09/01/2014 06/29/2016 Controlled type 2 diabetes m ellitus with proteinuria or albuminuria 03/04/2014 06/29/2016 CKD (chronic kidney disease) stage 3, GFR 30-59 ml/min 08/29/2013 06/29/2016 Diabetes mellitus 08/29/2013 06/29/2016 Scar condition and fibrosis of skin: mildly hype rtrophic 10/01/2011 06/29/2016 Postinflammatory skin change s: mild hyperpigmentation and hypopigmentaion 10/01/2011 06/29/2016 Irritated//Inflamed Seborrheic Keratosis 012 12/30/2015 Viral wart component of irritated gary ker 201106/29/2016 Melanocytic nevus of upper e xtremity: Intradermal Nevus moles upper arms 08/17/2011 06/29/2016 Solar Lentigines 08/17/2011 06/29/2016 Actinic skin damage 08/17/2011 06/29/2016 Urethral caruncle 08/01/2011 06/29/2016 Other chronic cystitis 12/17/2009 7 Lower urinary tract infectious disease 0 06/29/2016 Gross hematuria 12/23/2008 06/29/2016 Postmenopausal atrophic vaginitis 12/21/2008 06/29/2016 Leiomyoma of uterus, unspecified 12/21/2008 06/29/2016 Disorder of bone and cartilage, unspecified 05/200706/29/2016 Unspecified disorder of bladder 11/22/2007 06/29/2016 Benign neoplasm of colon 02/07/2005 007 Diverticulosis of colon (without mention of hemo rrhage) 02/07/2005 11/27/2006 Type 2 diabetes mellitus without complication 06/29/2016 Back pain, sacroiliac 06/29/2016 documented as of this encounter (statuses as of 03/07/2022) [facility] Narrative* Problem Noted Date Resolved Date Gastroesophageal reflux disease without esophagi tis 08/08/2017 04/09/2020 Overview: Added automatically from request for surgery [id number] Dysphagia 08/08/2017 04/09/2020 Overview: Added automatically from request for surgery [id number] Hyperlipidemia 09/01/2014 06/29/2016 HTN (hypertension) 09/01/2014 06/29/2016 Controlled type 2 diabetes m ellitus with proteinuria or albuminuria 03/04/2014 06/29/2016 CKD (chronic kidney disease) stage 3, GFR 30-59 ml/min 08/29/2013 06/29/2016 Diabetes mellitus 08/29/2013 06/29/2016 Scar condition and fibrosis of skin: mildly hype rtrophic 10/01/2011 06/29/2016 Postinflammatory skin change s: mild hyperpigmentation and hypopigmentaion 10/01/2011 06/29/2016 Irritated//Inflamed Seborrheic Keratosis 012 12/30/2015 Viral wart component of irritated gary ker 201106/29/2016 Melanocytic nevus of upper e xtremity: Intradermal Nevus moles upper arms 08/17/2011 06/29/2016 Solar Lentigines 08/17/2011 06/29/2016 Actinic skin damage 08/17/2011 06/29/2016 Urethral caruncle 08/01/2011 06/29/2016 Other chronic cystitis 12/17/2009 7 Lower urinary tract infectious disease 0 06/29/2016 Gross hematuria 12/23/2008 06/29/2016 Postmenopausal atrophic vaginitis 12/21/2008 06/29/2016 Leiomyoma of uterus, unspecified 12/21/2008 06/29/2016 Disorder of bone and cartilage, unspecified 05/200706/29/2016 Unspecified disorder of bladder 11/22/2007 06/29/2016 Benign neoplasm of colon 02/07/2005 007 Diverticulosis of colon (without mention of hemo rrhage) 02/07/2005 11/27/2006 Type 2 diabetes mellitus without complication 06/29/2016 Back pain, sacroiliac 06/29/2016 documented as of this encounter (statuses as of 03/09/2022) [facility] Narrative* Problem Noted Date Resolved Date Gastroesophageal reflux disease without esophagi tis 08/08/2017 04/09/2020 Overview: Added automatically from request for surgery [id number] Dysphagia 08/08/2017 04/09/2020 Overview: Added automatically from request for surgery [id number] Hyperlipidemia 09/01/2014 06/29/2016 HTN (hypertension) 09/01/2014 06/29/2016 Controlled type 2 diabetes m ellitus with proteinuria or albuminuria 03/04/2014 06/29/2016 CKD (chronic kidney disease) stage 3, GFR 30-59 ml/min 08/29/2013 06/29/2016 Diabetes mellitus 08/29/2013 06/29/2016 Scar condition and fibrosis of skin: mildly hype rtrophic 10/01/2011 06/29/2016 Postinflammatory skin change s: mild hyperpigmentation and hypopigmentaion 10/01/2011 06/29/2016 Irritated//Inflamed Seborrheic Keratosis 012 12/30/2015 Viral wart component of irritated gary ker 201106/29/2016 Melanocytic nevus of upper e xtremity: Intradermal Nevus moles upper arms 08/17/2011 06/29/2016 Solar Lentigines 08/17/2011 06/29/2016 Actinic skin damage 08/17/2011 06/29/2016 Urethral caruncle 08/01/2011 06/29/2016 Other chronic cystitis 12/17/2009 7 Lower urinary tract infectious disease 0 06/29/2016 Gross hematuria 12/23/2008 06/29/2016 Postmenopausal atrophic vaginitis 12/21/2008 06/29/2016 Leiomyoma of uterus, unspecified 12/21/2008 06/29/2016 Disorder of bone and cartilage, unspecified 05/200706/29/2016 Unspecified disorder of bladder 11/22/2007 06/29/2016 Benign neoplasm of colon 02/07/2005 007 Diverticulosis of colon (without mention of hemo rrhage) 02/07/2005 11/27/2006 Type 2 diabetes mellitus without complication 06/29/2016 Back pain, sacroiliac 06/29/2016 documented as of this encounter (statuses as of 03/10/2022) [facility] illness Narrative* Problem Noted Date Resolved Date Gastroesophageal reflux disease without esophagi tis 08/08/2017 04/09/2020 Overview: Added automatically from request for surgery [id number] Dysphagia 08/08/2017 04/09/2020 Overview: Added automatically from request for surgery [id number] Hyperlipidemia 09/01/2014 06/29/2016 HTN (hypertension) 09/01/2014 06/29/2016 Controlled type 2 diabetes m ellitus with proteinuria or albuminuria 03/04/2014 06/29/2016 CKD (chronic kidney disease) stage 3, GFR 30-59 ml/min 08/29/2013 06/29/2016 Diabetes mellitus 08/29/2013 06/29/2016 Scar condition and fibrosis of skin: mildly hype rtrophic 10/01/2011 06/29/2016 Postinflammatory skin change s: mild hyperpigmentation and hypopigmentaion 10/01/2011 06/29/2016 Irritated//Inflamed Seborrheic Keratosis 012 12/30/2015 Viral wart component of irritated gary ker 201106/29/2016 Melanocytic nevus of upper e xtremity: Intradermal Nevus moles upper arms 08/17/2011 06/29/2016 Solar Lentigines 08/17/2011 06/29/2016 Actinic skin damage 08/17/2011 06/29/2016 Urethral caruncle 08/01/2011 06/29/2016 Other chronic cystitis 12/17/2009 7 Lower urinary tract infectious disease 0 06/29/2016 Gross hematuria 12/23/2008 06/29/2016 Postmenopausal atrophic vaginitis 12/21/2008 06/29/2016 Leiomyoma of uterus, unspecified 12/21/2008 06/29/2016 Disorder of bone and cartilage, unspecified 05/200706/29/2016 Unspecified disorder of bladder 11/22/2007 06/29/2016 Benign neoplasm of colon 02/07/2005 007 Diverticulosis of colon (without mention of hemo rrhage) 02/07/2005 11/27/2006 Type 2 diabetes mellitus without complication 06/29/2016 Back pain, sacroiliac 06/29/2016 documented as of this encounter (statuses as of 03/20/2022) [facility] Narrative* Problem Noted Date Resolved Date Gastroesophageal reflux disease without esophagi tis 08/08/2017 04/09/2020 Overview: Added automatically from request for surgery [id number] Dysphagia 08/08/2017 04/09/2020 Overview: Added automatically from request for surgery [id number] Hyperlipidemia 09/01/2014 06/29/2016 HTN (hypertension) 09/01/2014 06/29/2016 Controlled type 2 diabetes m ellitus with proteinuria or albuminuria 03/04/2014 06/29/2016 CKD (chronic kidney disease) stage 3, GFR 30-59 ml/min 08/29/2013 06/29/2016 Diabetes mellitus 08/29/2013 06/29/2016 Scar condition and fibrosis of skin: mildly hype rtrophic 10/01/2011 06/29/2016 Postinflammatory skin change s: mild hyperpigmentation and hypopigmentaion 10/01/2011 06/29/2016 Irritated//Inflamed Seborrheic Keratosis 012 12/30/2015 Viral wart component of irritated gary ker 201106/29/2016 Melanocytic nevus of upper e xtremity: Intradermal Nevus moles upper arms 08/17/2011 06/29/2016 Solar Lentigines 08/17/2011 06/29/2016 Actinic skin damage 08/17/2011 06/29/2016 Urethral caruncle 08/01/2011 06/29/2016 Other chronic cystitis 12/17/2009 7 Lower urinary tract infectious disease 0 06/29/2016 Gross hematuria 12/23/2008 06/29/2016 Postmenopausal atrophic vaginitis 12/21/2008 06/29/2016 Leiomyoma of uterus, unspecified 12/21/2008 06/29/2016 Disorder of bone and cartilage, unspecified 05/200706/29/2016 Unspecified disorder of bladder 11/22/2007 06/29/2016 Benign neoplasm of colon 02/07/2005 007 Diverticulosis of colon (without mention of hemo rrhage) 02/07/2005 11/27/2006 Type 2 diabetes mellitus without complication 06/29/2016 Back pain, sacroiliac 06/29/2016 documented as of this encounter (statuses as of 03/21/2022) [facility] Narrative* Problem Noted Date Resolved Date Gastroesophageal reflux disease without esophagi tis 08/08/2017 04/09/2020 Overview: Added automatically from request for surgery [id number] Dysphagia 08/08/2017 04/09/2020 Overview: Added automatically from request for surgery [id number] Hyperlipidemia 09/01/2014 06/29/2016 HTN (hypertension) 09/01/2014 06/29/2016 Controlled type 2 diabetes m ellitus with proteinuria or albuminuria 03/04/2014 06/29/2016 CKD (chronic kidney disease) stage 3, GFR 30-59 ml/min 08/29/2013 06/29/2016 Diabetes mellitus 08/29/2013 06/29/2016 Scar condition and fibrosis of skin: mildly hype rtrophic 10/01/2011 06/29/2016 Postinflammatory skin change s: mild hyperpigmentation and hypopigmentaion 10/01/2011 06/29/2016 Irritated//Inflamed Seborrheic Keratosis 012 12/30/2015 Viral wart component of irritated gary ker 201106/29/2016 Melanocytic nevus of upper e xtremity: Intradermal Nevus moles upper arms 08/17/2011 06/29/2016 Solar Lentigines 08/17/2011 06/29/2016 Actinic skin damage 08/17/2011 06/29/2016 Urethral caruncle 08/01/2011 06/29/2016 Other chronic cystitis 12/17/2009 7 Lower urinary tract infectious disease 0 06/29/2016 Gross hematuria 12/23/2008 06/29/2016 Postmenopausal atrophic vaginitis 12/21/2008 06/29/2016 Leiomyoma of uterus, unspecified 12/21/2008 06/29/2016 Disorder of bone and cartilage, unspecified 05/200706/29/2016 Unspecified disorder of bladder 11/22/2007 06/29/2016 Benign neoplasm of colon 02/07/2005 007 Diverticulosis of colon (without mention of hemo rrhage) 02/07/2005 11/27/2006 Type 2 diabetes mellitus without complication 06/29/2016 Back pain, sacroiliac 06/29/2016 documented as of this encounter (statuses as of 05/18/2022) [facility] Narrative* Problem Noted Date Resolved Date Gastroesophageal reflux disease without esophagi tis 08/08/2017 04/09/2020 Overview: Added automatically from request for surgery [id number] Dysphagia 08/08/2017 04/09/2020 Overview: Added automatically from request for surgery [id number] Hyperlipidemia 09/01/2014 06/29/2016 HTN (hypertension) 09/01/2014 06/29/2016 Controlled type 2 diabetes m ellitus with proteinuria or albuminuria 03/04/2014 06/29/2016 CKD (chronic kidney disease) stage 3, GFR 30-59 ml/min 08/29/2013 06/29/2016 Diabetes mellitus 08/29/2013 06/29/2016 Scar condition and fibrosis of skin: mildly hype rtrophic 10/01/2011 06/29/2016 Postinflammatory skin change s: mild hyperpigmentation and hypopigmentaion 10/01/2011 06/29/2016 Irritated//Inflamed Seborrheic Keratosis 012 12/30/2015 Viral wart component of irritated gary ker 201106/29/2016 Melanocytic nevus of upper e xtremity: Intradermal Nevus moles upper arms 08/17/2011 06/29/2016 Solar Lentigines 08/17/2011 06/29/2016 Actinic skin damage 08/17/2011 06/29/2016 Urethral caruncle 08/01/2011 06/29/2016 Other chronic cystitis 12/17/2009 7 Lower urinary tract infectious disease 0 06/29/2016 Gross hematuria 12/23/2008 06/29/2016 Postmenopausal atrophic vaginitis 12/21/2008 06/29/2016 Leiomyoma of uterus, unspecified 12/21/2008 06/29/2016 Disorder of bone and cartilage, unspecified 05/200706/29/2016 Unspecified disorder of bladder 11/22/2007 06/29/2016 Benign neoplasm of colon 02/07/2005 007 Diverticulosis of colon (without mention of hemo rrhage) 02/07/2005 11/27/2006 Type 2 diabetes mellitus without complication 06/29/2016 Back pain, sacroiliac 06/29/2016 documented as of this encounter (statuses as of 05/19/2022) [place] [address]-06-2018 History of Past illness Narrative* Problem Noted Date Resolved Date Gastroesophageal reflux disease without esophagi tis 08/08/2017 04/09/2020 Overview: Added automatically from request for surgery [id number] Dysphagia 08/08/2017 04/09/2020 Overview: Added automatically from request for surgery [id number] Hyperlipidemia 09/01/2014 06/29/2016 HTN (hypertension) 09/01/2014 06/29/2016 Controlled type 2 diabetes m ellitus with proteinuria or albuminuria 03/04/2014 06/29/2016 CKD (chronic kidney disease) stage 3, GFR 30-59 ml/min 08/29/2013 06/29/2016 Diabetes mellitus 08/29/2013 06/29/2016 Scar condition and fibrosis of skin: mildly hype rtrophic 10/01/2011 06/29/2016 Postinflammatory skin change s: mild hyperpigmentation and hypopigmentaion 10/01/2011 06/29/2016 Irritated//Inflamed Seborrheic Keratosis 012 12/30/2015 Viral wart component of irritated gary ker 201106/29/2016 Melanocytic nevus of upper e xtremity: Intradermal Nevus moles upper arms 08/17/2011 06/29/2016 Solar Lentigines 08/17/2011 06/29/2016 Actinic skin damage 08/17/2011 06/29/2016 Urethral caruncle 08/01/2011 06/29/2016 Other chronic cystitis 12/17/2009 7 Lower urinary tract infectious disease 0 06/29/2016 Gross hematuria 12/23/2008 06/29/2016 Postmenopausal atrophic vaginitis 12/21/2008 06/29/2016 Leiomyoma of uterus, unspecified 12/21/2008 06/29/2016 Disorder of bone and cartilage, unspecified 05/200706/29/2016 Unspecified disorder of bladder 11/22/2007 06/29/2016 Benign neoplasm of colon 02/07/2005 007 Diverticulosis of colon (without mention of hemo rrhage) 02/07/2005 11/27/2006 Type 2 diabetes mellitus without complication 06/29/2016 Back pain, sacroiliac 06/29/2016 documented as of this encounter (statuses as of 06/29/2022) [facility] Narrative* Problem Noted Date Resolved Date Gastroesophageal reflux disease without esophagi tis 08/08/2017 04/09/2020 Overview: Added automatically from request for surgery [id number] Dysphagia 08/08/2017 04/09/2020 Overview: Added automatically from request for surgery [id number] Hyperlipidemia 09/01/2014 06/29/2016 HTN (hypertension) 09/01/2014 06/29/2016 Controlled type 2 diabetes m ellitus with proteinuria or albuminuria 03/04/2014 06/29/2016 CKD (chronic kidney disease) stage 3, GFR 30-59 ml/min 08/29/2013 06/29/2016 Diabetes mellitus 08/29/2013 06/29/2016 Scar condition and fibrosis of skin: mildly hype rtrophic 10/01/2011 06/29/2016 Postinflammatory skin change s: mild hyperpigmentation and hypopigmentaion 10/01/2011 06/29/2016 Irritated//Inflamed Seborrheic Keratosis 012 12/30/2015 Viral wart component of irritated gary ker 201106/29/2016 Melanocytic nevus of upper e xtremity: Intradermal Nevus moles upper arms 08/17/2011 06/29/2016 Solar Lentigines 08/17/2011 06/29/2016 Actinic skin damage 08/17/2011 06/29/2016 Urethral caruncle 08/01/2011 06/29/2016 Other chronic cystitis 12/17/2009 7 Lower urinary tract infectious disease 0 06/29/2016 Gross hematuria 12/23/2008 06/29/2016 Postmenopausal atrophic vaginitis 12/21/2008 06/29/2016 Leiomyoma of uterus, unspecified 12/21/2008 06/29/2016 Disorder of bone and cartilage, unspecified 05/200706/29/2016 Unspecified disorder of bladder 11/22/2007 06/29/2016 Benign neoplasm of colon 02/07/2005 007 Diverticulosis of colon (without mention of hemo rrhage) 02/07/2005 11/27/2006 Type 2 diabetes mellitus without complication 06/29/2016 Back pain, sacroiliac 06/29/2016 documented as of this encounter (statuses as of 08/16/2022) [facility] Narrative* Problem Noted Date Diagnosed Date Resolved Date Gastroesophageal reflux dise ase without esophagitis 08/08/2017 04/09/2020 Overview: Added automatically from request for surgery [id number] Dysphagia 08/08/2017 04/09/2020 Overview: Added automatically from request for surgery [id number] Hyperlipidemia 09/01/2014 06/29/2016 HTN (hypertension) 09/01/2014 7 Controlled type 2 diabetes m ellitus with proteinuria or albuminuria 03/04/2014 06/29/2016 CKD (chronic kidney disease) stage 3, GFR 30-59 ml/min 08/29/2013 06/29/2016 Diabetes mellitus 08/29/2013 06/29/2016 Scar condition and fibrosis of skin: mildly hypertrophic 10/01/2011 06/29/2016 Postinflammatory skin change s: mild hyperpigmentation and hypopigmentaion 10/01/2011 Irritated//Inflamed Seborrheic Keratosis 08/17/2011 12/30/2015 Viral wart component of irritated gary ker 08/17/2011 06/29/2016 Melanocytic nevus of upper e xtremity: Intradermal Nevus moles upper arms 08/17/201106/29 Solar Lentigines 08/17/2011 06/29/2016 Actinic skin damage 08/17/2011 06/30/19 17 Urethral caruncle 08/01/2011 06/29/2016 Other chronic cystitis 12/17/200906/29 Lower urinary tract infectious disease 06/25/2009 06/29/2016 Gross hematuria 12/23/2008 06/29/2016 Postmenopausal atrophic vaginitis 12/21/2008 06/29/2016 Leiomyoma of uterus, unspecified 12/21/2008 06/29/2016 Disorder of bone and cartilage, unspecified 12/06/2007 06/29/2016 Unspecified disorder of bladder 11/22/2007 06/29/2016 Benign neoplasm of colon 02/07/2005 Diverticulosis of colon (wit hout mention of hemorrhage) 02/07/2005 11/27/2006 Type 2 diabetes mellitus without complication 11/02/19 05 06/29/2016 Back pain, sacroiliac 2016 documented as of this encounter (statuses as of 10/02/2022) [facility] Diagnosis Microscopic hematuria- Primary [facility] Diagnosis Liver mass Unspecified disorder of liver History of bladder cancer Personal history of malignant neoplasm of bladder documented [facility] encounter [facility] Diagnosis Type 2 diabetes mellitus with microalbuminuria, without long-term current use of insulin (HCC)- Primary [facility] Diagnosis Type 2 diabetes mellitus with microalbuminuria, without long-term current use of insulin (HCC)- Primary Essential hypertension, benign Mixed hyperlipidemia Lung nodule Solitary pulmonary nodule Gastroesophageal reflux disease with esophagitis without hemorrhage Chronic deep vein thrombosis (DVT) of proximal vein of lower extremity, unspecified laterality (HCC) Osteopenia of multiple sites Disorder of bone and cartilage Disorder of bone and cartilage, unspecified Other specified disorders of bone density and structure, other site Need for hepatitis C screening test Special screening examination for other specified viral diseases [facility] Essential hypertension, benign- Primary Mixed hyperlipidemia Type 2 diabetes mellitus with microalbuminuria, without long-term current use of insulin (HCC) Gastroesophageal reflux disease with esophagitis without hemorrhage Need for COVID-19 vaccine Hepatic cyst Other specified disorders of liver Fatty liver Other chronic nonalcoholic liver disease Renal cyst Unspecified congenital cystic kidney disease Lung nodule Solitary pulmonary nodule History of bladder cancer Personal history of malignant neoplasm of bladder Need for influenza vaccination Need for prophylactic vaccination and inoculation against influenza Onychogryphosis Other specified disease of nail documented in this [facility] Chest pain, unspecified type- Primary Essential hypertension, benign Schatzki's ring Congenital tracheoesophageal fistula, 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, without long-term current use of insulin (HCC) [facility] Diagnosis Onychomycosis- Primary Dermatophytosis of nail Onychogryphosis Other specified disease of nail Type 2 diabetes mellitus with microalbuminuria, without long-term current use of insulin (HCC) Hammer toes of both feet Pain in toe of left foot Pain in limb [facility] Diagnosis Type 2 diabetes mellitus with microalbuminuria, without long-term current use of insulin (HCC) Essential hypertension, benign [facility]* Diagnosis Recurrent UTI (urinary tract infection)- Primary Urinary tract infection, site not specified Chronic deep vein thrombosis (DVT) of proximal vein of lower extremity, unspecified laterality (HCC) [facility]* Diagnosis Recurrent UTI (urinary tract infection)- Primary Urinary tract infection, site not specified [facility]* Diagnosis Type 2 diabetes mellitus with microalbuminuria, without long-term current use of insulin (HCC) Essential hypertension, benign Gastroesophageal reflux disease with esophagitis without hemorrhage [facility]* Diagnosis Type 2 diabetes mellitus with microalbuminuria, without long-term current use of insulin (HCC)- Primary Hyperglycemia Other abnormal glucose Hypercalcemia [facility]* Diagnosis Type 2 diabetes mellitus with microalbuminuria, without long-term current use of insulin (HCC) [facility]* Diagnosis Chronic deep vein thrombosis (DVT) of proximal vein of lower extremity, unspecified laterality (HCC) [facility] Diagnosis Type 2 diabetes mellitus with microalbuminuria, without long-term current use of insulin (HCC) [facility]* Diagnosis Type 2 diabetes mellitus with microalbuminuria, without long-term current use of insulin (HCC) [facility]* Diagnosis Type 2 diabetes mellitus with microalbuminuria, without long-term current use of insulin (HCC) [facility]* Diagnosis Chronic deep vein thrombosis (DVT) of proximal vein of lower extremity, unspecified laterality (HCC) [facility]* Diagnosis Encounter for screening mammogram for malignant neoplasm of breast Other screening mammogram [facility] Diagnosis Visit for screening mammogram- Primary Other screening mammogram [facility] Diagnosis Essential hypertension, benign- Primary Mixed hyperlipidemia Gastroesophageal reflux disease with esophagitis without hemorrhage Chronic kidney disease, stage 3a (HCC) Chronic deep vein thrombosis (DVT) of proximal vein of lower extremity, unspecified laterality (HCC) History of bladder cancer Personal history of malignant neoplasm of bladder Type 2 diabetes mellitus with microalbuminuria, with long-term current use of insulin (HCC) [facility] Diagnosis Type 2 diabetes mellitus with microalbuminuria, without long-term current use of insulin (HCC) (HCC) documented in this encounter [facility] for referral (narrative)* Diagnostic Procedure Only (Routine) - Closed Specialty Diagnoses / Procedures Referred By Bettye son Referred To Contact XR IMAGING Diagnoses Buttock pain Procedures XR HIP GENERAL 3V PELV/AP/LAT LEFT RADEX HIP UNILATERAL WITH PELVIS 2-3 VIEWS Osman Villa MD [address] [place] [address] Xr Imaging Referral ID Status Reason Start Date Expiration Date V isits Requested Visits Authorized [id number] Closed Auto-Generate d Referral 10/04/2022 11/03/2023 1 1 [facility] for referral (narrative)* Diagnostic Procedure Only (Routine) - Closed Specialty Diagnoses / Procedures Referred By Bettye son Referred To Contact BR IMAGING Diagnoses Encounter for screening mammogram for malignant neoplasm of breast Procedures MALLORY SCREENING SCREENING MAMMOGRAPHY BI 2-VIEW BREAST INC Osman Tate MD [address] [place] [address] Br Imaging [address] [facility] [place] [address] Referral ID Status Reason Start Date Expiration Date V isits Requested Visits Authorized [id number] Closed Auto-Generate d Referral 01/10/2022 02/09/2023 1 1 [facility] for referral (narrative)* Diagnostic Procedure Only (Routine) - Pending Review Specialty Diagnoses / Procedures Referred By Bettye son Referred To Contact BR IMAGING Diagnoses Visit for screening mammogram Procedures MALLORY SCREENING SCREENING MAMMOGRAPHY BI 2-VIEW BREAST INC Osman Tate MD [address] [place] [address] Br Imaging [address] [place] [address] Referral ID Status Reason Start Date Expiration Date Visits Requested Visits Authorized [id number] Pending Review Auto-Generat ed Referral 02/08/2024 1 1 [facility] for visit Narrative* Diagnostic Procedure Only (Routine) - Closed Specialty Diagnoses / Procedures Referred By Contac t Referred To Contact BR IMAGING Diagnoses Encounter for screening mammogram for malignant neoplasm of breast Procedures MALLORY SCREENING SCREENING MAMMOGRAPHY BI 2-VIEW BREAST INC Osman Tate MD [address] [place] [address] [facility] [address] [place] [address] Referral ID Status Reason Start Date Expiration Date V isits Requested Visits Authorized [id number] Closed Auto-Generate d Referral 01/10/2022 02/09/2023 1 1 [facility] for visit Narrative* Diagnostic Procedure Only (Routine) - Closed Specialty Diagnoses / Procedures Referred By Contkinjal t Referred To Contact BR IMAGING Diagnoses Visit for screening mammogram Procedures MALLORY SCREENING SCREENING MAMMOGRAPHY BI 2-VIEW BREAST INC Osman Tate MD [address] [place] [address] [facility] Imaging [address] [place] [address] Referral ID Status Reason Start Date Expiration Date V isits Requested Visits Authorized [id number] Closed Auto-Generate d Referral 01/15/2023 02/08/2024 1 1 [facility] Summary Purpose Family History No Family History Records FoundNo Family History Records Found Advance Directives Documents on File 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(s) 01/10/2021 6:49 AM Advance Directive(s) 01/22/2020 8:58 AM Advance Directive(s) 09/09/2018 7:40 AM Advance Directive(s) 08/20/2017 8:41 AM Documents on File 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(s) 01/10/2021 6:49 AM Advance Directive(s) 01/22/2020 8:58 AM Advance Directive(s) 09/09/2018 7:40 AM Advance Directive(s) 08/20/2017 8:41 AM Documents on File 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(s) 01/22/2020 8:58 AM Documents on File 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(s) 01/22/2020 8:58 AM Reason for Referral Specialty Diagnoses / Procedures Referred By Contac t Referred To Contact MR IMAGING Diagnoses Liver mass History of bladder cancer Procedures MRI LIVER WO/W IVCON MRI ABDOMEN W/O & W/CONTRAST MATERIAL Osman Villa MD [address] [place] [address] Mr Imaging Referral ID Status Reason Start Date Expiration Date V isits Requested Visits Authorized [id number] Closed Auto-Generate d Referral 07/04/2021 08/03/2022 1 1 Specialty Diagnoses / Procedures Referred By Contac t Referred To Contact Podiatry Diagnoses Onychogryphosis Procedures CONSULT TO PODIATRY OFFICE/OUTPATIENT [facility] 60-74 MINUTES Dai North PA-C [address] [place] [address] Referral ID Status Reason Start Date Expiration Date Visits Requested Visits Authorized [id number] Authorized PCP Requested Referral 2 12/13/2022 1 1 Health Concerns Infection Onset Date Last Indicated Resolved Time COVID-19 Rule-Out 07/29/2021 08/12/2021 08/12/2021 10:23 PM EDT Additional Source Comments INFORMATION SOURCE (unrecogn ized section and content) DATE CREATED AUTHOR AUTHOR'S ORGANIZ ATION 03/03/2023 [facility] Source Comments (unrecognize d section and content) In the event this informatio n is protected by the Federal Confidentiality of Alcohol and Drug Abuse Patient Records regulations: The Federal rules restrict any use of the information to criminally investigate or prosecute any alcohol or drug abuse patient.[facility] the event this information is protected by the Federal Confidentiality of Alcohol and Drug Abuse Patient Records regulations: The Federal rules restrict any use of the information to criminally investigate or prosecute any alcohol or drug abuse patient.[facility] FoundationIn the event this information is protected by the Federal Confidentiality of Alcohol and Drug Abuse Patient Records regulations: The Federal rules restrict any use of the information to criminally investigate or prosecute any alcohol or drug abuse patient.[facility] Foundation[facility] the event this information is protected by the Federal Confidentiality of Alcohol and Drug Abuse Patient Records regulations: The Federal rules restrict any use of the information to criminally investigate or prosecute any alcohol or drug abuse patient.[facility] Foundation[facility] the event this information is protected by the Federal Confidentiality of Alcohol and Drug Abuse Patient Records regulations: The Federal rules restrict any use of the information to criminally investigate or prosecute any alcohol or drug abuse patient.[facility] the event this information is protected by the Federal Confidentiality of Alcohol and Drug Abuse Patient Records regulations: The Federal rules restrict any use of the information to criminally investigate or prosecute any alcohol or drug abuse patient.[facility] the event this information is protected by the Federal Confidentiality of Alcohol and Drug Abuse Patient Records regulations: The Federal rules restrict any use of the information to criminally investigate or prosecute any alcohol or drug abuse patient.[facility] Foundation[facility] the event this information is protected by the Federal Confidentiality of Alcohol and Drug Abuse Patient Records regulations: The Federal rules restrict any use of the information to criminally investigate or prosecute any alcohol or drug abuse patient.[facility] the event this information is protected by the Federal Confidentiality of Alcohol and Drug Abuse Patient Records regulations: The Federal rules restrict any use of the information to criminally investigate or prosecute any alcohol or drug abuse patient.[facility] Foundation[facility] the event this information is protected by the Federal Confidentiality of Alcohol and Drug Abuse Patient Records regulations: The Federal rules restrict any use of the information to criminally investigate or prosecute any alcohol or drug abuse patient.[facility] the event this information is protected by the Federal Confidentiality of Alcohol and Drug Abuse Patient Records regulations: The Federal rules restrict any use of the information to criminally investigate or prosecute any alcohol or drug abuse patient.[facility] the event this information is protected by the Federal Confidentiality of Alcohol and Drug Abuse Patient Records regulations: The Federal rules restrict any use of the information to criminally investigate or prosecute any alcohol or drug abuse patient.[facility] Foundation[facility] the event this information is protected by the Federal Confidentiality of Alcohol and Drug Abuse Patient Records regulations: The Federal rules restrict any use of the information to criminally investigate or prosecute any alcohol or drug abuse patient.[facility] Foundation[facility] the event this information is protected by the Federal Confidentiality of Alcohol and Drug Abuse Patient Records regulations: The Federal rules restrict any use of the information to criminally investigate or prosecute any alcohol or drug abuse patient.[facility] FoundationIn the event this information is protected by the Federal Confidentiality of Alcohol and Drug Abuse Patient Records regulations: The Federal rules restrict any use of the information to criminally investigate or prosecute any alcohol or drug abuse patient.[facility] Foundation[facility] the event this information is protected by the Federal Confidentiality of Alcohol and Drug Abuse Patient Records regulations: The Federal rules restrict any use of the information to criminally investigate or prosecute any alcohol or drug abuse patient.[facility] FoundationIn the event this information is protected by the Federal Confidentiality of Alcohol and Drug Abuse Patient Records regulations: The Federal rules restrict any use of the information to criminally investigate or prosecute any alcohol or drug abuse patient.[facility] FoundationIn the event this information is protected by the Federal Confidentiality of Alcohol and Drug Abuse Patient Records regulations: The Federal rules restrict any use of the information to criminally investigate or prosecute any alcohol or drug abuse patient.[facility] FoundationIn the event this information is protected by the Federal Confidentiality of Alcohol and Drug Abuse Patient Records regulations: The Federal rules restrict any use of the information to criminally investigate or prosecute any alcohol or drug abuse patient.[facility] FoundationIn the event this information is protected by the Federal Confidentiality of Alcohol and Drug Abuse Patient Records regulations: The Federal rules restrict any use of the information to criminally investigate or prosecute any alcohol or drug abuse patient.[facility] FoundationIn the event this information is protected by the Federal Confidentiality of Alcohol and Drug Abuse Patient Records regulations: The Federal rules restrict any use of the information to criminally investigate or prosecute any alcohol or drug abuse patient.[facility] FoundationIn the event this information is protected by the Federal Confidentiality of Alcohol and Drug Abuse Patient Records regulations: The Federal rules restrict any use of the information to criminally investigate or prosecute any alcohol or drug abuse patient.[facility] FoundationIn the event this information is protected by the Federal Confidentiality of Alcohol and Drug Abuse Patient Records regulations: The Federal rules restrict any use of the information to criminally investigate or prosecute any alcohol or drug abuse patient.[facility] FoundationIn the event this information is protected by the Federal Confidentiality of Alcohol and Drug Abuse Patient Records regulations: The Federal rules restrict any use of the information to criminally investigate or prosecute any alcohol or drug abuse patient.[facility] FoundationIn the event this information is protected by the Federal Confidentiality of Alcohol and Drug Abuse Patient Records regulations: The Federal rules restrict any use of the information to criminally investigate or prosecute any alcohol or drug abuse patient.[facility] FoundationIn the event this information is protected by the Federal Confidentiality of Alcohol and Drug Abuse Patient Records regulations: The Federal rules restrict any use of the information to criminally investigate or prosecute any alcohol or drug abuse patient.[facility]In the event this information is protected by the Federal Confidentiality of Alcohol and Drug Abuse Patient Records regulations: The Federal rules restrict any use of the information to criminally investigate or prosecute any alcohol or drug abuse patient.[facility] FoundationIn the event this information is protected by the Federal Confidentiality of Alcohol and Drug Abuse Patient Records regulations: The Federal rules restrict any use of the information to criminally investigate or prosecute any alcohol or drug abuse patient.[facility] FoundationIn the event this information is protected by the Federal Confidentiality of Alcohol and Drug Abuse Patient Records regulations: The Federal rules restrict any use of the information to criminally investigate or prosecute any alcohol or drug abuse patient.[facility]In the event this information is protected by the Federal Confidentiality of Alcohol and Drug Abuse Patient Records regulations: The Federal rules restrict any use of the information to criminally investigate or prosecute any alcohol or drug abuse patient.[facility] FoundationIn the event this information is protected by the Federal Confidentiality of Alcohol and Drug Abuse Patient Records regulations: The Federal rules restrict any use of the information to criminally investigate or prosecute any alcohol or drug abuse patient.[facility]In the event this information is protected by the Federal Confidentiality of Alcohol and Drug Abuse Patient Records regulations: The Federal rules restrict any use of the information to criminally investigate or prosecute any alcohol or drug abuse patient.[facility] FoundationIn the event this information is protected by the Federal Confidentiality of Alcohol and Drug Abuse Patient Records regulations: The Federal rules restrict any use of the information to criminally investigate or prosecute any alcohol or drug abuse patient.[facility] FoundationIn the event this information is protected by the Federal Confidentiality of Alcohol and Drug Abuse Patient Records regulations: The Federal rules restrict any use of the information to criminally investigate or prosecute any alcohol or drug abuse patient.[facility] FoundationIn the event this information is protected by the Federal Confidentiality of Alcohol and Drug Abuse Patient Records regulations: The Federal rules restrict any use of the information to criminally investigate or prosecute any alcohol or drug abuse patient.[facility] FoundationIn the event this information is protected by the Federal Confidentiality of Alcohol and Drug Abuse Patient Records regulations: The Federal rules restrict any use of the information to criminally investigate or prosecute any alcohol or drug abuse patient.[facility] FoundationIn the event this information is protected by the Federal Confidentiality of Alcohol and Drug Abuse Patient Records regulations: The Federal rules restrict any use of the information to criminally investigate or prosecute any alcohol or drug abuse patient.[facility] FoundationIn the event this information is protected by the Federal Confidentiality of Alcohol and Drug Abuse Patient Records regulations: The Federal rules restrict any use of the information to criminally investigate or prosecute any alcohol or drug abuse patient.[facility] Reason for Visit (unrecogniz ed section and content) Specialty Diagnoses / Procedures Referred By Bettye t Referred To Contact MR IMAGING Diagnoses Liver mass History of bladder cancer Procedures MRI LIVER WO/W IVCON MRI ABDOMEN W/O & W/CONTRAST MATERIAL Osman Villa MD [address] [place] [address] Mr Imaging Referral ID Status Reason Start Date Expiration Date V isits Requested Visits Authorized [id number] Closed Auto-Generate d Referral 07/04/2021 08/03/2022 1 1 Reason Comments Results Reason Comments Patient Update Reason Comments Lab Orders Reason Comments 6 Month Exam Reason Comments Medication Question Discuss Eliquis and Januvia. Insurance is changing tiers and cost going up. Discuss alternatives Reason Comments Hospital Follow Up Reason Comments Established Patient Onychogryphosis Specialty Diagnoses / Procedures Referred By Bettye son Referred To Contact Podiatry Diagnoses Onychogryphosis Procedures CONSULT TO PODIATRY OFFICE/OUTPATIENT [facility] 60-74 MINUTES Dai North PA-C [address] [place] [address] Referral ID Status Reason Start Date Expiration Date V isits Requested Visits Authorized [id number] Closed PCP Requested Referral 12/13/2021 12/13/2022 1 1 Reason Onset Date Comments Refill Request 01/23/2022 Reason Comments UTI Reason Onset Date Comments Refill Request 03/08/2022 Reason Onset Date Comments Refill Request 03/21/2022 Reason Onset Date Comments Refill Request 05/19/2022 Reason Comments Uti - Re-occurring Reason Onset Date Comments Allied Health Visit 08/16/2022 Medication A dherence Outreach Reason Comments 6 Month Exam Reason Comments Blood Sugar Reading Reason Comments Refill Request Reason Onset Date Comments Allied Health Visit 01/18/2023 Medication A dherence Outreach Reason Comments Follow Up Reason Onset Date Comments Allied Health Visit 04/18/2023 Medication A dherence Outreach Reason Onset Date Comments Refill Request 04/18/2023 Care Teams (unrecognized sec tion and content) Territory Account Representative Relationship Specialty Start Date End Date Osman Villa MD [address] [place], [place] [id number] PCP - General Family Practice 03/04/14 Territory Account Representative Relationship Specialty Start Date End Date Osman Villa MD [address] [place], [place] [phone] PCP - General Family Practice 03/04/14 Territory Account Representative Relationship Specialty Start Date End Date Osman Villa MD [address] [place], [place] [id number] PCP - General Family Practice 03/04/14 Territory Account Representative Relationship Specialty Start Date End Date Osman Villa MD [address] [place], [place] [id number] PCP - General Family Medicine 03/04/14 Territory Account Representative Relationship Specialty Start Date End Date Osman Villa MD [address] [facility] [place] [address] PCP - General Family Medicine 03/04/14 Territory Account Representative Relationship Specialty Start Date End Date sOman Villa MD [address] [facility] [place] [address] PCP - General Family Medicine 03/04/14 Territory Account Representative Relationship Specialty Start Date End Date Osman Villa MD [address] [facility] [place] [address] PCP - General Family Medicine 03/04/14 Territory Account Representative Relationship Specialty Start Date End Date Osman Villa MD [address] [facility] [place] [address] PCP - General Family Medicine 03/04/14 Territory Account Representative Relationship Specialty Start Date End Date Osman Villa MD [address] [facility] [place] [address] PCP - General Family Medicine 03/04/14 Territory Account Representative Relationship Specialty Start Date End Date Osman Villa MD [address] [facility] [place] [address] PCP - General Family Medicine 03/04/14 Territory Account Representative Relationship Specialty Start Date End Date Osman Villa MD [address] [facility] [place] [address] PCP - General Family Medicine 03/04/14 Territory Account Representative Relationship Specialty Start Date End Date Osman Villa MD [address] [facility] [place] [address] PCP - General Family Medicine 03/04/14 Territory Account Representative Relationship Specialty Start Date End Date Osman Villa MD [address] [place] [address] PCP - General Family Medicine 03/04/14 Territory Account Representative Relationship Specialty Start Date End Date Osman Villa MD [address] [place] [address] PCP - General Family Medicine 03/04/14 Territory Account Representative Relationship Specialty Start Date End Date Osman Villa MD [address] [place] [address] PCP - General Family Medicine 03/04/14 Territory Account Representative Relationship Specialty Start Date End Date Osman Villa MD [address] [place] [address] PCP - General Family Medicine 03/04/14 Territory Account Representative Relationship Specialty Start Date End Date Osman Villa MD [address] [place] [address] PCP - General Family Medicine 03/04/14 Territory Account Representative Relationship Specialty Start Date End Date Osman Villa MD [address] [place] [address] PCP - General Family Medicine 03/04/14 Territory Account Representative Relationship Specialty Start Date End Date Osman Villa MD [address] [place] [address] PCP - General Family Medicine 03/04/14 Territory Account Representative Relationship Specialty Start Date End Date Osman Villa MD [address] [place] [address] PCP - General Family Medicine 03/04/14 Territory Account Representative Relationship Specialty Start Date End Date Osman Villa MD [address] [place] [address] PCP - General Family Medicine 03/04/14 Territory Account Representative Relationship Specialty Start Date End Date Osman Villa MD [address] [place], [place] [address] PCP - General Family Medicine 03/04/14 Territory Account Representative Relationship Specialty Start Date End Date Osman Villa MD [address] [place], [place] [id number] PCP - General Family Medicine 03/04/14 Territory Account Representative Relationship Specialty Start Date End Date Osman Villa MD [address] [place] [address] PCP - General Family Medicine 03/04/14 Territory Account Representative Relationship Specialty Start Date End Date Osman Villa MD [address] [place] [address] PCP - General Family Medicine 03/04/14 Territory Account Representative Relationship Specialty Start Date End Date Osman Villa MD [address] [place] [address] PCP - General Family Medicine 03/04/14 Territory Account Representative Relationship Specialty Start Date End Date Osman Villa MD [address] [place] [address] PCP - General Family Medicine 03/04/14 Territory Account Representative Relationship Specialty Start Date End Date Osman Villa MD [address] [place], [place] [address] PCP - General Family Medicine 03/04/14 Territory Account Representative Relationship Specialty Start Date End Date Osman Villa MD [address] [place], [place] [address] PCP - General Family Medicine 03/04/14 Territory Account Representative Relationship Specialty Start Date End Date Osman Villa MD [address] [facility] [place] [address] PCP - General Family Medicine 03/04/14 FOR RECORDS PERTAINING TO PATIENTS WHO ARE OR HAVE BEEN ENROLLED IN A CHEMICAL DEPENDENCY/SUBSTANCEABUSE PROGRAM, SOME INFORMATION MAY BE OMITTED. This clinical summary was aggregated from multiple sources. Caution should be exercised in using it in the provision of clinical care. This summary normalizes information from multiple sources, and as a consequence, information in this document may materially change the coding, format and clinical context of patient data. In addition, data may be omitted in some cases. CLINICAL DECISIONS SHOULD BE BASED ON THE PRIMARY CLINICAL RECORDS. [facility] [employer] [facility]. provides no warranty or guarantee of the accuracy or completeness of information in this document.
== END | disposition home or self-care (01) ==
LOC: LAB 14:04
PROVIDERS: PCP Family Medicine; Referring Provider Urology; Visit Provider Urology
DX: R10.84 Generalized abdominal pain (principal)
CPT/HCPCS: 87077; 87086; 87088; 87186

== ENCOUNTER → 2023-09-10 | Outpatient (CLI) | payer MEDICARE, SELFPAY | END | disposition home or self-care (01) | LOC: LAB 15:01 | PROVIDERS: PCP Family Medicine; Referring Provider Urology; Visit Provider Urology | DX: N30.01 Acute cystitis with hematuria (principal) | CPT/HCPCS: 87077; 87086; 87088; 87186 ==

== ENCOUNTER 2023-11-17 13:50 | Emergency (ER) | payer MEDICARE, SELFPAY ==
[2023-11-17 13:51] VITALS: BP 138/105; PULSE 91; RESP 16; TEMP 36; O2SAT 96; BMI 25.2
--- NOTE | 2023-11-17 14:41 | EX.ED.DYSGE1 ---
HPI <DAGO Samaniego - Last Filed: 11/17/23 15:35> History of Present Illness Chief Complaint: Lower Extremity Injury Narrative Narrative: Patient is an 83-year-old female with history of hypertension, diabetes, history of DVT on Eliquis who presents to the emergency department for evaluation after an injury that occurred to her right leg. Patient at this time has a small fluctuant area to the lateral aspect of the right calf, some edema to the ankle with some bruising to the foot. She states that the bump has gotten much more proved however over the last couple days has not changed. She is here for evaluation. She also noted some redness to the right lateral leg. [facility] <DAGO Samaniego - Last Filed: 11/17/23 15:35> [facility] Medical History (Updated 11/17/23 @ 15:33 by DAGO Samaniego) Wears glasses Diabetes Arthritis Cancer High cholesterol Former smoker Cardiology follow-up encounter History of stress test Uterovaginal prolapse, incomplete Tubular adenoma of colon Schatzki's ring SVT (supraventricular tachycardia) DVT (deep venous thrombosis) Onychogryposis History of bladder cancer Lung nodule Fatty liver GERD (gastroesophageal reflux disease) Diabetes mellitus, type II Hyperlipidemia HTN (hypertension) Home Medications ?Medication ?Instructions ?Recorded ?Last Taken ?Type famotidine 20 mg tablet 20 mg PO BID 09/23/21 10/31/22 History lisinopril 20 mg tablet 20 mg PO DAILY 09/23/21 10/31/22 History nateglinide 60 mg tablet 60 mg PO TID 09/23/21 Unknown History magnesium 250 mg tablet 250 mg PO DAILY 12/16/21 Unknown History acetaminophen 500 mg capsule 1,000 mg PO BID 10/18/22 Unknown History ascorbic acid (vitamin C) 1,000 mg 1 g PO DAILY 10/18/22 Unknown History tablet (Vitamin C) biotin 10,000 mcg capsule 10,000 mcg PO DAILY 10/18/22 Unknown History cranberry 400 mg capsule 1,000 mg PO DAILY 10/18/22 Unknown History insulin detemir U-100 100 unit/mL 5 unit subcut QHS 10/18/22 10/30/22 History (3 mL) subcutaneous pen (Levemir FlexPen) [id number] acid 0.4 1 tab PO DAILY 10/18/22 Unknown History mg-lycopene 300 mcg-lutein 250 mcg tablet (Centrum Silver) apixaban 5 mg tablet (Eliquis) 5 mg PO BID 11/17/23 Unknown History atorvastatin 40 mg tablet 40 mg PO QHS 11/17/23 Unknown History cephalexin 500 mg capsule 500 mg PO Q6 7 days #28 CAPSULES 11/17/23 Unknown Rx hydrochlorothiazide 12.5 mg capsule 12.5 mg PO DAILY 11/17/23 Unknown History insulin glargine 100 unit/mL (3 9 unit subcut QHS 11/17/23 Unknown History mL) subcutaneous pen (Lantus Solostar U-100 Insulin) sitagliptin phosphate 100 mg 100 mg PO DAILY 11/17/23 Unknown History tablet (Januvia) Allergy/AdvReac Type Severity Reaction Status Date / Time omeprazole (From Prilosec) AdvReac Mild PT UNSURE Verified 11/17/23 13:51 OF REACTION metformin AdvReac PT UNSURE Verified 11/17/23 13:51 OF REACTION Family History (Updated 12/16/21 @ 04:[address] Juli Anand MD) Mother Hypertension Heart disease CHF (congestive heart failure) Rheumatoid arthritis Father PUD (peptic ulcer disease) s/p partial gastrectomy as a result of his PUD severity. Surgical History History of esophageal surgery History of bladder surgery History of bilateral tubal ligation History of tonsillectomy and adenoidectomy Social History (Updated 12/16/21 @ 02:[address] Juli Anand MD) household members: spouse Smoking Status: Former smoker alcohol intake: never substance use type: does not use ROS <DAGO Samaniego - Last Filed: 11/17/23 15:35> ROS ED ROS Narrative Constitutional: Negative for fever, chills, weight loss, weakness Eyes: Negative for vision loss, vision change, double vision ENT: Negative for any sore throat, ear pain, congestion Cardiovascular: Negative for any chest pain, tightness, palpitations Respiratory: Negative for any cough, sputum production, hemoptysis, dyspnea, dyspnea on exertion, orthopnea Gastrointestinal: Negative for any abdominal pain, nausea, vomiting, diarrhea, constipation, blood in stool, blood in vomit : Negative for any urinary frequency, dysuria, retention, blood in urine Muscle skeletal: Negative for any neck pain, back pain. Positive for right leg pain, right leg ecchymosis Neurological: Negative for any headache, syncope, dizziness Skin: Negative for any rashes, itching, abrasions, lacerations Psychiatric: Negative for any depression, anxiety, stress, suicidal ideation, homicidal ideation Hematologic: Negative for any excessive bruising, easy bleeding EXAM <DAGO Samaniego - Last Filed: 11/17/23 15:35> Physical Exam Narrative Exam Narrative: Vital signs reviewed. HEET: Head normocephalic atraumatic, TMs clear bilaterally. Posterior pharynx is clear, moist mucous membranes. Nares clear bilaterally. Neck: Supple with no lymphadenopathy or tenderness. No signs of meningismus. Cardiac: Regular rate and rhythm no murmurs gallops or rubs, equal peripheral pulses bilaterally. Respiratory: Lungs clear to auscultation bilaterally. No chest tenderness. Abdomen: Soft, nontender, nondistended. No abdominal bruit or pulsatile masses. No hepatosplenomegaly Extremities: Patient does have a small lump that is fluctuant, soft, no evidence of any redness or firmness to the lateral calf. This is not posterior. Patient does have some edema to the ankle and lower foot with some bruising. I believe this is secondary to pulling from gravity of the injury that occurred. Patient has no pain along the tibial bone. +2 pedal pulse. Neuro: Cranial nerves II through XII intact, no focal neurological deficits. Skin: Clean dry and intact with no rash, purpura, petechiae, vesicles or pustules. Backs/flank: No CVA tenderness, no midline spinal tenderness, no deformity. Psych: Normal mood and affect. No SI, HI or acute psychosis. Const Vital Signs: 11/17/23 13:51 11/17/23 14:33 Temperature 96.8 F L Temperature Source Temporal Pulse Rate 91 Respiratory Rate 16 Respiratory Effort Normal Respiratory Pattern Normal Blood Pressure 138/105 H Blood Pressure Mean 116 Pulse Ox 96 Oxygen Delivery Method Room Air <Dr. Joseph Thayer DO - Last Filed: 11/17/23 15:32> Physical Exam Const Vital Signs: 11/17/23 13:51 11/17/23 14:33 Temperature 96.8 F L Temperature Source Temporal Pulse Rate 91 Respiratory Rate 16 Respiratory Effort Normal Respiratory Pattern Normal Blood Pressure 138/105 H Blood Pressure Mean 116 Pulse Ox 96 Oxygen Delivery Method Room Air [facility] <DAGO Samaniego - Last Filed: 11/17/23 15:35> [facility] Treatment and Re-Evaluation :: Differential diagnosis includes however is not limited to: DVT, hematoma, tibial fracture, cellulitis Patient appears to be in no obvious distress, vital signs are stable, patient presents to the emerged department with complaints of swelling, pain to the right lateral calf, right ankle. Physical examination is not concerning with DVT. This is mostly on the lateral aspect of the right leg. This seems to be hematoma that pulled down to the foot. Secondary to gravity. Patient has +2 pedal pulse. Do not believe the patient requires any x-rays. There is some redness to the lateral aspect. At this time, I believe the patient be treated with Keflex, 4 times a day for 7 days. She will continue to ice and elevate. Patient finished all antibiotics. Stable for discharge. ED attending note: I evaluated the patient in conjunction with the RAULITO. I agree with his/her statements and above findings. I have personally performed a face to face assessment of the patient and have reviewed the RAULITO Note. I performed a substantive portion of the visit including all aspects of the following. I personally saw the patient performed chart review, physical exam, reviewed labs, imaging (if obtained), and formulated a treatment and management plan. Notes history of DVT. Denies recent travel, surgery, estrogen use, chest pain, shortness of breath. Notes trauma that initiated small area of swelling and pain on the anterior lateral right lower leg. Leg had some confluent erythema, it was warm, was not particular tender to palpation. She had symmetric pulses. Compartments are soft. Quadricep tendon complex intact. No obvious joint swelling or edema. Concern for DVT versus fracture dislocation for cellulitis. Low special for fractures patient is ambulatory desired of significant pain. Low DVT as patient is on Eliquis and compliant. Will treat for cellulitis and give patient strict return precautions. This note was generated with Wordseye dictation software. It may contain incorrect words, spelling, and punctuation that were not noted in review of the chart prior to signing. <Dr. Joseph Thayer DO - Last Filed: 11/17/23 15:32> [facility] Treatment and Re-Evaluation :: Differential diagnosis includes however is not limited to: DVT, hematoma, tibial fracture, cellulitis Patient appears to be in no obvious distress, vital signs are stable, patient presents to the emerged department with complaints of swelling, pain to the right lateral calf, right ankle. Physical examination is not concerning with DVT. This is mostly on the lateral aspect of the right leg. This seems to be hematoma that pulled down to the foot. Secondary to gravity. Patient has +2 pedal pulse. Do not believe the patient requires any x-rays. There is some redness to the lateral aspect. ED attending note: I evaluated the patient in conjunction with the RAULITO. I agree with his/her statements and above findings. I have personally performed a face to face assessment of the patient and have reviewed the RAULITO Note. I performed a substantive portion of the visit including all aspects of the following. I personally saw the patient performed chart review, physical exam, reviewed labs, imaging (if obtained), and formulated a treatment and management plan. Notes history of DVT. Denies recent travel, surgery, estrogen use, chest pain, shortness of breath. Notes trauma that initiated small area of swelling and pain on the anterior lateral right lower leg. Leg had some confluent erythema, it was warm, was not particular tender to palpation. She had symmetric pulses. Compartments are soft. Quadricep tendon complex intact. No obvious joint swelling or edema. Concern for DVT versus fracture dislocation for cellulitis. Low special for fractures patient is ambulatory desired of significant pain. Low DVT as patient is on Eliquis and compliant. Will treat for cellulitis and give patient strict return precautions. This note was generated with Wordseye dictation software. It may contain incorrect words, spelling, and punctuation that were not noted in review of the chart prior to signing. Discharge Plan Triage Chief Complaint: Lower Extremity Injury ED Midlevel Provider: Neo Baker ED Provider: Joseph Thayer Dx/Rx/DC Orders Clinical Impression: Edema, Cellulitis Instructions: ED Cellulitis Prescriptions: New cephalexin 500 mg capsule 500 mg PO Q6 7 Days Qty: 28 0RF No Action lisinopril 20 mg Tablet 20 mg PO DAILY nateglinide 60 mg Tablet 60 mg PO TID famotidine 20 mg Tablet 20 mg PO BID magnesium 250 mg Tablet 250 mg PO DAILY acetaminophen 500 mg capsule 1,000 mg PO BID Centrum Silver 0.4 mg-300 mcg- 250 mcg tablet 1 tab PO DAILY ascorbic acid (vitamin C) [Vitamin C] 1,000 mg tablet 1 g PO DAILY cranberry 400 mg capsule 1,000 mg PO DAILY Rx Instructions: administer with a meal Levemir FlexPen 100 unit/mL (3 mL) insulin pen 5 unit SUBCUT QHS Patient Comments: Inject 5 Units subcutaneously daily at bedtime. biotin 10,000 mcg capsule 10,000 mcg PO DAILY atorvastatin 40 mg tablet 40 mg PO QHS hydrochlorothiazide 12.5 mg capsule 12.5 mg PO DAILY Januvia 100 mg tablet 100 mg PO DAILY insulin glargine [Lantus Solostar U-100 Insulin] 100 unit/mL (3 mL) insulin pen 9 unit subcut QHS Eliquis 5 mg tablet 5 mg PO BID Primary Care Provider: Julian Villa Referrals: Julian Villa MD [Primary Care Provider] - Activity Restrictions/Additional Instructions: Take the antibiotics as prescribed. Continue to ice and elevate Print Language: Spanish Disposition Disposition: Home, Self Care
[2023-11-17] MEDS: Cephalexin 250 MG Capsule 500 MG PO (15:41)
[2023-11-17 15:43] VITALS: BP 130/78; PULSE 82; RESP 16; TEMP 36.8; O2SAT 99
== END 2023-11-17 15:48 | disposition home or self-care (01) ==
LOC: ED 15:46
PROVIDERS: Emergency Provider Emergency Medicine; PCP Family Medicine; Visit Provider Emergency Medicine
DX: R60.9 Edema, unspecified (principal); E11.9 Type 2 diabetes mellitus without complications; Z79.4 Long term (current) use of insulin; E78.00 Pure hypercholesterolemia, unspecified; I10 Essential (primary) hypertension; Z87.891 Personal history of nicotine dependence; Z86.718 Personal history of other venous thrombosis and embolism; Z79.01 Long term (current) use of anticoagulants; K21.9 Gastro-esophageal reflux disease without esophagitis; Z79.899 Other long term (current) drug therapy; Z98.51 Tubal ligation status; L03.115 Cellulitis of right lower limb
CPT/HCPCS: 99284

== ENCOUNTER → 2023-12-19 | Outpatient (CLI) | payer MEDICARE, SELFPAY | END | disposition home or self-care (01) | LOC: LAB 15:26 | PROVIDERS: PCP Family Medicine; Referring Provider Urology; Visit Provider Urology | DX: R30.0 Dysuria (principal) | CPT/HCPCS: 87086; 87088; 87186 ==

== ENCOUNTER → 2024-04-10 | Outpatient (CLI) | payer MEDICARE, SELFPAY | END | disposition home or self-care (01) | LOC: LABSPEC 15:11 | PROVIDERS: PCP Family Medicine; Referring Provider Urology; Visit Provider Urology | DX: R30.0 Dysuria (principal) | CPT/HCPCS: 87077; 87086; 87088; 87186 ==

== ENCOUNTER → 2024-04-23 | Outpatient (CLI) | payer MEDICARE, SELFPAY | END | disposition home or self-care (01) | LOC: LAB 11:13 | PROVIDERS: PCP Family Medicine; Referring Provider Urology; Visit Provider Urology | DX: N30.01 Acute cystitis with hematuria (principal) | CPT/HCPCS: 36415; 87077; 87086; 87088; 87186 ==

== ENCOUNTER → 2024-04-25 | Outpatient (CLI) | payer MEDICARE, SELFPAY ==
--- NOTE | 2024-04-25 12:59 | CT_ITS ---
PROCEDURE: ABDOMEN/PELVIS WITHOUT CONT REASON FOR EXAM: Acute cystitis. Hematuria. TECHNIQUE: Abdomen and pelvis CT without intravenous contrast administration. COMPARISON: Comparison is made with prior study dated September 14, 2022. FINDINGS: Lung bases: There is a 1.2 cm nodule in the right lower lobe as seen on axial image 1. This was not imaged on prior study. A dedicated CT scan of the thorax is recommended. Stable increased markings at the lung bases suggestive of scarring. Coronary artery calcification. Liver: Stable scattered small hepatic cysts. Gallbladder: Unremarkable. Spleen: Unremarkable. Pancreas: Unremarkable. Adrenals: Unremarkable. Kidneys: Stable 3.8 cm x 2 cm left renal cyst. Bladder: Unremarkable. Reproductive Organs: Calcified fibroid uterus. Bowel: Colonic diverticulosis without diverticulitis. Appendix: Normal. Lymph nodes: No suspicious lymph node enlargement. Vasculature: Mild diffuse atherosclerotic calcifications are noted. Peritoneum / Retroperitoneum: No ascites. No free air. Bones: Degenerative changes of the spine. CT/Abdomen/Pelvis without Cont IMPRESSION: 1.2 cm nodule in the right lower lobe. This was not imaged on prior study. A dedicated CT scan of the thorax is recommended. Sigmoid diverticulosis. One or more dose reduction techniques were used (e.g., Automated exposure contr ol, adjustment of the mA and/or kV according to patient size, use of iterative reconstruction technique). Reading Location: [place] [address]
== END | disposition home or self-care (01) ==
PROVIDERS: PCP Family Medicine; Referring Provider Urology; Visit Provider Urology
DX: N30.01 Acute cystitis with hematuria (principal)
CPT/HCPCS: 74176

== ENCOUNTER → 2024-05-28 | Outpatient (CLI) | payer MEDICARE, SELFPAY ==
--- NOTE | 2024-05-28 18:55 | CT_ITS ---
PROCEDURE: CHEST WITHOUT CONTRAST 05/28/2024 REASON FOR EXAM: NODULES TECHNIQUE: Chest CT without contrast. Coronal and Sagittal reconstruction series were provided. One or more dose reduction techniques were used (e.g., Automated exposure control, adjustment of the mA and/or kV according to patient size, use of iterative reconstruction technique COMPARISON: 12/14/2021 FINDINGS: Lungs/Pleura:Multiple pulmonary nodules are again noted. The dominant nodule in the upper portion of the right lower lobe measures 1.5 cm and previously measured 1.5 cm. The 2nd dominant nodule is also in the right lower lobe on image 73 measuring 1.5 cm and previously measured 1.4 cm. Multiple additional smaller nodules are present which appear stable. For example a nodule in the right lung apex on image 35 of series 4 measures 3.8 mm and previously measured 3.1 mm.No pleural effusion or pneumothorax. Cardiovascular:The heart is normal in size.No coronary artery calcifications are identified.There are mild scattered atherosclerotic calcifications in the thoracic aorta. The pulmonary arteries are unremarkable. Pericardium:No effusion. Mediastinum:Unremarkable. Lymph nodes:No lymph node enlargement identified on this noncontrast CT. Bones:No acute osseous abnormality.[id number]-[id number] multilevel degenerative changes are present in the visualized spine. Soft tissues:Unremarkable. Upper abdomen:A couple of hypodense lesions in the liver appear similar to the previous exam. There is a stable cyst in the upper pole of the left kidney. CT/Chest without Contrast IMPRESSION: 1. No acute abnormality of the chest. 2. Numerous pulmonary nodules appear stable from the previous exam, including t he dominant nodules measuring up to 1.5 cm. Reading Location: [facility]
== END | disposition home or self-care (01) ==
PROVIDERS: PCP Family Medicine; Referring Provider Family Medicine; Visit Provider Family Medicine
DX: R91.8 Other nonspecific abnormal finding of lung field (principal)
CPT/HCPCS: 71250

== ENCOUNTER → 2024-08-14 | Outpatient (CLI) | payer MEDICARE, SELFPAY | END | disposition home or self-care (01) | LOC: LAB 16:02 | PROVIDERS: PCP Family Medicine; Referring Provider Urology; Visit Provider Urology | DX: N30.01 Acute cystitis with hematuria (principal) | CPT/HCPCS: 87086; 87088 ==

== ENCOUNTER → 2024-08-18 | Outpatient (CLI) | payer MEDICARE, SELFPAY | END | disposition home or self-care (01) | PROVIDERS: PCP Family Medicine; Referring Provider Urology; Visit Provider Urology | DX: R30.0 Dysuria (principal) | CPT/HCPCS: 87077; 87086; 87088; 87186 ==

== ENCOUNTER → 2024-12-22 | Outpatient (CLI) | payer MEDICARE, SELFPAY | END | disposition home or self-care (01) | LOC: LAB 13:56 | PROVIDERS: PCP Family Medicine; Referring Provider Urology; Visit Provider Urology | DX: N39.0 Urinary tract infection, site not specified (principal) | CPT/HCPCS: 87077; 87086; 87088; 87186 ==

== ENCOUNTER → 2025-01-26 | Outpatient (CLI) | payer MEDICARE, SELFPAY | END | disposition home or self-care (01) | LOC: LAB.FUTURE 12:14 → LAB 12:15 | PROVIDERS: PCP Family Medicine; Referring Provider Urology; Visit Provider Urology | DX: N39.0 Urinary tract infection, site not specified (principal) | CPT/HCPCS: 87077; 87086; 87088; 87186 ==